=== PATIENT | male | born 1965 | race Caucasian/White ===

== ENCOUNTER 2019-07-24 16:34 | Inpatient (IN) | payer OTHER ==
[~2019-07-24] VITALS: Ht 180.3 cm; Wt 108.9 kg
[2019-07-24 17:00] VITALS: BP 114/52
--- NOTE | 2019-07-24 17:46 | NUR ---
PT BIB FOR RT SHOULDER/BACK PAIN X YEARS, REPORTS FREQUENT BLOODY NOISES, AND GENERALIZED WEAKNESS. PT AA0X4, REPORTS PT DISORIENTATED AT HOME. PT HAS 4+ PITTING EDEMA BLE, JUANDICE, DISTENDED ABD, RR LABORED AT 30 BREATHS PER MIN. PMH:BACK SURGERIES RX:DENIES Addendum: 07/24/19 at 1818 by TULIO VSS. IV STARTED AND LABS OBTAINED
[2019-07-24 18:13] LABS: BASOPHILS % (AUTO) 0.4 % (0.0-2.0); EOSINOPHILS % (AUTO) 0.6 % (0.0-4.0); LYMPHOCYTES # (AUTO) 1.3 K/uL (2.0-11.5); LYMPHOCYTES % (AUTO) 59.8 % (20.5-51.1); MEAN CORPUSCULAR HEMOGLOBIN 31 pg (27-31); MEAN CORPUSCULAR HGB CONC 35 g/dL (33-37); MEAN CORPUSCULAR VOLUME 89.4 fL (80-94); MONOCYTES # (AUTO) 0.1 K/uL (0.8-1.0); MONOCYTES % (AUTO) 4.4 % (1.7-9.3); NEUTROPHILS # (AUTO) 0.8 K/uL (1.8-7.7); NEUTROPHILS % (AUTO) 34.8 % (42.2-75.2); RED BLOOD CELL COUNT(AUTO) 0.95 MIL/uL (4.20-6.10); RED CELL DISTRIBUTION WIDTH 17.2 % (11.6-13.7); WHITE BLOOD COUNT (AUTO) 2.2 K/uL (4.8-10.8)
[2019-07-24 18:15] LABS: APPEARANCE,URINE CLEAR (CLEAR); BILIRUBIN,URINE NEGATIVE (NEGATIVE); BLOOD, URINE 1+ (NEGATIVE); COLOR,URINE YELLOW (YELLOW); LEUKOCYTE ESTERASE ,URINE NEGATIVE (NEGATIVE); NITRITE, URINE NEGATIVE (NEGATIVE); UGLUCOSE NEGATIVE (NEGATIVE)
[2019-07-24 18:21] LABS: HEMATOCRIT 8.5 % (36-52); PLATELET COUNT (AUTO) 3 K/uL (140-450)
[2019-07-24 18:31] LABS: RBC,URINE 0-5 /HPF (0-5); WBC,URINE 0-5 /HPF (0-5)
[2019-07-24 18:37] LABS: ANION GAP 19.5 (8-16); CARBON DIOXIDE 24.5 mmol/L (21-32); CREATININE 1.3 mg/dL (0.7-1.3)
[2019-07-24 18:42] LABS: PROTHROMBIN TIME 14.5 secs (10.8-13.4)
[2019-07-24 18:44] LABS: ALBUMIN 1.8 g/dL (3.4-5.0); TOTAL BILIRUBIN 1.2 mg/dL (0.0-1.0)
[2019-07-24] MEDS ORDERED: NACL 0.9% 1,000 ML IV ONE ×2 (19:05)
[2019-07-24] MEDS ORDERED: PIPERACILLIN/TAZOBACTAM 3.375 GM in DEXTROSE 5% 50 ML IV ONE (19:05)
--- NOTE | 2019-07-24 19:19 | NUR ---
RECEIVED REPORT FROM JOSE STACK.
--- NOTE | 2019-07-24 19:42 | NUR ---
STARTED INFUSING PRBCS. VERIFIED WITH JOSE NG. Addendum: 07/24/19 at 1954 by NED VITAL SIGNS: 98.9 F; 102 HR; 32 RR; 116/57.
--- NOTE | 2019-07-24 19:57 | NUR ---
V/S: 99.2 f; 98 HR; 33RR; 93/57 ( 65). PAIN IS A 10/10. PATIENT IS A/O X4. WILL CONTINUE TO MONITOR.
--- NOTE | 2019-07-24 20:12 | NUR ---
PATIENT IS A/OX4; PAIN IS AN 03/02. 99.5; 98% ON 2L N/C; 32 RR; 107/59 (75). WILL CONTINUE TO MONITOR.
--- NOTE | 2019-07-24 20:45 | NUR ---
EKG PERFORMED AT BEDSIDE
--- NOTE | 2019-07-24 20:54 | NUR ---
ERMD AT BEDSIDE.
[2019-07-24] MEDS ORDERED: fentaNYL 0.05 MG/ML VIAL IVP ONE ×3 (20:55→21:45)
--- NOTE | 2019-07-24 20:56 | NUR ---
Orquidea wilkins in [facility] - 07/24/19 at [address] Marks examining patient.
--- NOTE | 2019-07-24 20:58 | NUR ---
HR: 119; 113/60; 25 RR; 92% ON 2L. DAUGHTER AT BEDSIDE.
--- NOTE | 2019-07-24 21:12 | NUR ---
VITALS: 127/71; 99.3; 117 HR; 94% ON 2L; 33 RR: PAIN IS 7/10. WILL CONTINUE TO MONITOR.
--- NOTE | 2019-07-24 21:18 | NUR ---
Dr. Marks performing procedure at bedside.
--- NOTE | 2019-07-24 21:34 | NUR ---
ERMD AT BEDSIDE FOR PROCEDURE.
--- NOTE | 2019-07-24 21:38 | NUR ---
SYNCHRONIZE CARDIOVERTED TO NSR.
--- NOTE | 2019-07-24 21:40 | NUR ---
PATIENT RETURNED TO V-TACH AT 121. 100 MCG FENTANYL ORDERED AND PULLED.
--- NOTE | 2019-07-24 21:44 | NUR ---
RT, EMT, RN, AND MD AT BEDSIDE FOR PROCEDURE. WILL CONTINUE TO MONITOR.
--- NOTE | 2019-07-24 21:48 | NUR ---
PUSHED FENTANYL 100MCG PER MD ORDER.
--- NOTE | 2019-07-24 21:50 | NUR ---
ERMD AT BEDSIDE PROCEDURE.
--- NOTE | 2019-07-24 21:51 | NUR ---
SINUS TACHYCARDIA AT 106
--- NOTE | 2019-07-24 21:53 | NUR ---
PATIENT A/OX4; VITALS: 107/65; 100% ON 2L; 99HR; 27 RR; 5/10 PAIN AT THIS TIME. WILL CONTINUE TO MONITOR.
[2019-07-24] MEDS ORDERED: AMIODARONE 150 MG in DEXTROSE 5% 100 ML IV ONE (21:55)
[2019-07-24] MEDS ORDERED: AMIODARONE 150 MG/3 ML VIAL IV ONE (21:56)
--- NOTE | 2019-07-24 21:56 | NUR ---
NORMAL SINUS RHYTHM AT 96 BPM. WILL CONTINUE TO MONITOR.
[2019-07-24] MEDS: DEXT 5% /NACL 0.9% 1,000 ML IV SCH (21:58)
[2019-07-24] MEDS ORDERED: ONDANSETRON 4 MG/2 ML VIAL IVP PRN (22:00)
--- NOTE | 2019-07-24 22:00 | NUR ---
BLOOD TRANSFUSION FINISHED. NORMAL SALINE RUNNING. VITALS: 121/71; 96 HR;99% SPO2 ON NRB. WILL CONTINUE TO MONITOR. AT BEDSIDE.
--- NOTE | 2019-07-24 22:07 | NUR ---
PATIENT URINATED VIA URINAL 200ML OUTPUT.
[2019-07-24] MEDS: PANTOPRAZOLE 80 MG in NACL 0.9% 100 ML IV SCH (22:30)
[2019-07-24] MEDS ORDERED: OCTREOTIDE ACETATE 1.25 MG in NACL 0.9% 250 ML IV SCH (22:30)
--- NOTE | 2019-07-24 22:30 | NUR ---
Patient will be admitted to care of DR. BLISS. Admited to ICU. Will go to room BED 8. Belongings list completed. Report to JOSE VEE .
[2019-07-24] MEDS ORDERED: PIPERACILLIN/TAZOBACTAM 3.375 GM VIAL IV ONE (22:48)
[2019-07-24 23:02] LABS: MAGNESIUM 2.9 mg/dL (1.8-2.4); PHOSPHORUS 4.2 mg/dL (2.5-4.9); THYROID STIMULATING HORMONE 2.66 uIU/mL (0.34-3.74)
[2019-07-24] MEDS ORDERED: MULTIVITAMIN-12 10 ML, THIAMINE 100 MG, MAGNESIUM SULFATE 50% 2,000 MG, FOLIC ACID 5 MG... IV ONE ×5 (23:24)
[2019-07-24] MEDS ORDERED: MORPHINE SULFATE 2 MG/ML SYR IVP PRN (23:25)
[2019-07-24] MEDS ORDERED: OCTREOTIDE ACETATE 1000 MCG/5 ML VIAL ONE (23:40)
--- NOTE | 2019-07-24 23:45 | NUR ---
PT RECE[facility] PT IS AWAKE AND ALERT, ORIENTED X3. R AC IV SITE 20 GAUGE. INTACT, PATENT CURRENTLY INFUSING BLOOD. L AC IV SITE 20 GAUGE, INTACT, PATENT, GOOD BLOOD RETURN. SINUS RHYTHM ON MONITOR.LUNG SOUNDS CLEAR. PT IS MOANING AND ANXIOUS. ABDOMEN SOFT AND ROUND. BOWEL SOUNDS ACTIVE. SKIN IS INTACT, CAP REFILL LESS THAN 2 SECONDS. PT C/O BACK PAIN FROM HX OF BACK SURGERY. HOB 30 DEGREES. BED LOCKED IN LOWEST POSITION. WILL CONTINUE TO MONITOR.
[2019-07-25] VITALS (46 sets, daily range): BP systolic 120–154; BP diastolic 64–99
--- NOTE | 2019-07-25 | NUR ---
PT HAD A RUN OF VTACH. DR RAIN MADE AWARE. NO ORDERS GIVEN. WILL CONTINUE TO MONITOR.
[2019-07-25 00:17] LABS: BARBITURATE, URINE NEG. ng/ml (NEG <=200); BENZODIAZEPINE, URINE NEG. ng/mL (NEG <=200); CANNABINOID, URINE NEG. ng/mL (NEG <=50); COCAINE, URINE NEG. ng/mL (NEG <=300); OPIATE, URINE NEG. ng/mL (NEG <=2000); PHENCYCLIDINE SCREEN,URINE NEG. ng/mL (NEG <=25)
--- NOTE | 2019-07-25 00:20 | NUR ---
BLOOD CURRENTLY TRANSFUSING. NO REACTION NOTED. WILL CONTINUE TO MONITOR.
[2019-07-25] MEDS: LORazepam 2 MG/ML VIAL IVP PRN ×8 (00:36→22:26)
--- NOTE | 2019-07-25 00:40 | NUR ---
PT IS MOANING AND ANXIOUS. 2MG OF ATIVAN GIVEN. WILL CONTINUE TO MONITOR.
[2019-07-25] MEDS ORDERED: DEXTROSE 50% 50 ML SYR IVP PRN (00:50)
--- NOTE | 2019-07-25 01:35 | NUR ---
Spoke with Dr Jim regarding blood draw (CBC, amonia, alcohol, lactic) during blood transfusion; Dr Jim stated to draw the blood during transfusion. Let nicking machine operator know and to draw blood now
[2019-07-25 01:52] LABS: BASOPHILS % (AUTO) 0.5 % (0.0-2.0); EOSINOPHILS % (AUTO) 0.4 % (0.0-4.0); LYMPHOCYTES % (AUTO) 54.2 % (20.5-51.1); MEAN CORPUSCULAR HEMOGLOBIN 31 pg (27-31); MEAN CORPUSCULAR HGB CONC 35 g/dL (33-37); MEAN CORPUSCULAR VOLUME 88.8 fL (80-94); MONOCYTES # (AUTO) 0.1 K/uL (0.8-1.0); MONOCYTES % (AUTO) 3.6 % (1.7-9.3); NEUTROPHILS # (AUTO) 0.8 K/uL (1.8-7.7); NEUTROPHILS % (AUTO) 41.3 % (42.2-75.2)
[2019-07-25 02:09] LABS: WHITE BLOOD COUNT (AUTO) 1.9 K/uL (4.8-10.8)
[2019-07-25 02:12] LABS: HEMATOCRIT 12.4 % (36-52); HEMOGLOBIN 4.3 g/dL (12.0-18.0); PLATELET COUNT (AUTO) 2 K/uL (140-450)
--- NOTE | 2019-07-25 02:25 | NUR ---
PT HAS EYES CLOSED, RESTING IN BED. NO SOB OR DISTRESS NOTED. RESPIRATIONS EVEN AND UNLABORED. SAFETY PRECAUTIONS IN PLACE. WILL CONTINUE TO MONITOR.
--- NOTE | 2019-07-25 03:48 | NUR ---
PATIENT ANXIOUS, MOVING AROUND IN BED, SCREAMING, RR IN 30'S, GAVE ATIVAN
--- NOTE | 2019-07-25 04:30 | NUR ---
PT VOIDED, INCONTINENT. MEMO CARE CARE PROVIDED. WILL CONTINUE TO MONITOR.
[2019-07-25] MEDS: LORazepam 1 MG TAB PO SCH ×3 (05:00→21:00)
--- NOTE | 2019-07-25 06:10 | NUR ---
PATIENT LETHARGIC NOT ABLE TO SWALLOW MEDICATIONS
[2019-07-25 06:26] LABS: BASOPHILS % (AUTO) 0.5 % (0.0-2.0); EOSINOPHILS % (AUTO) 0.2 % (0.0-4.0); LYMPHOCYTES # (AUTO) 0.9 K/uL (2.0-11.5); LYMPHOCYTES % (AUTO) 51.1 % (20.5-51.1); MEAN CORPUSCULAR HEMOGLOBIN 31 pg (27-31); MEAN CORPUSCULAR HGB CONC 35 g/dL (33-37); MEAN CORPUSCULAR VOLUME 89.3 fL (80-94); MONOCYTES # (AUTO) 0.1 K/uL (0.8-1.0); MONOCYTES % (AUTO) 4.5 % (1.7-9.3); NEUTROPHILS # (AUTO) 0.8 K/uL (1.8-7.7); NEUTROPHILS % (AUTO) 43.7 % (42.2-75.2); PLATELET COUNT (AUTO) 26 K/uL (140-450); RED BLOOD CELL COUNT(AUTO) 1.43 MIL/uL (4.20-6.10); RED CELL DISTRIBUTION WIDTH 15.3 % (11.6-13.7)
[2019-07-25 06:41] LABS: ANION GAP 12.3 (8-16); CARBON DIOXIDE 28.1 mmol/L (21-32); MAGNESIUM 2.8 mg/dL (1.8-2.4); PHOSPHORUS 3.9 mg/dL (2.5-4.9); POTASSIUM 3.4 mmol/L (3.5-5.1)
[2019-07-25 07:03] LABS: HEMOGLOBIN 4.4 g/dL (12.0-18.0); WHITE BLOOD COUNT (AUTO) 1.8 K/uL (4.8-10.8)
[2019-07-25 07:04] LABS: HEMATOCRIT 12.7 % (36-52)
--- NOTE | 2019-07-25 07:05 | NUR ---
FRIEND THADDEUS WORLEY [phone] HERE FOR VISIT
--- NOTE | 2019-07-25 07:30 | NUR ---
REPORT GIVEN TO MICKEY RN FOR CONTINUTIY OF CARE. ORDERS REVIEWED AT BEDSIDE.
--- NOTE | 2019-07-25 07:31 | NUR ---
BEDSIDE REPORT RECEIVED FROM REGIONAL EXTENSION SERVICE SPECIALIST NURSE, PT LETHARGIC, RESPONDS TO PAIN ONLY, DOES NOT FOLLOW COMMANDS, RESP EVEN UNLABORED, SLIGHTLY TACHYPNEAC, RR 24-32, 2L NC O2, BS CLEAR BILAT, HR 80'S NSR ON MONITOR AT THIS TIME, IV 20G TO BILAT AC. PRBC INFUSING AT 100ML/HR AT THIS TIME, BOTH SITES WNL, ABD SOFT, NON DISTENDED, BS + IN ALL 4Q, PT INCONTINENT OF URINE, PERICARE DONE, PADS CHANGED, SLIGHT EDEMA NOTED ON BILAT LOWER EX. POC REVIEWED, ALL SAFETY MEASURES IN PLACE, WILL CONTINUE TO MONTIOR.
[2019-07-25] MEDS ORDERED: PIPER/TAZO 3.375GM/D5W PREMIX 50 ML IV SCH (08:00)
--- NOTE | 2019-07-25 08:15 | NUR ---
PT IRRITABLE, HR 117, ATIVAN GIVEN PER PRN ORDER.
[2019-07-25] MEDS: BLOOD GLUCOSE MONITORING 1 DEV DEV FS SCH ×4 (08:16→20:57)
--- NOTE | 2019-07-25 08:24 | NUR ---
PATIENT HAS BEEN SCREENED AND CATEGORIZED HIGH NUTRITION RISK. PATIENT WILL BE SEEN WITHIN 1-2 DAYS OF ADMISSION. 07/25/18-07/26/[address]
[2019-07-25] MEDS: PIPERACILLIN/TAZOBACTAM 3.375 GM in DEXTROSE 5% 50 ML IV SCH ×2 (08:29→16:23)
[2019-07-25] MEDS: PANTOPRAZOLE 80 MG in NACL 0.9% 100 ML IV SCH (08:47)
[2019-07-25] MEDS: THIAMINE 100 MG TAB PO SCH (09:00)
[2019-07-25] MEDS: FOLIC ACID 1 MG TAB PO SCH (09:00)
[2019-07-25] MEDS: MULTIVITAMIN 1 TAB PO SCH (09:00)
[2019-07-25] MEDS: DOCUSATE SODIUM 100 MG GELCAP PO SCH ×2 (09:00→21:00)
--- NOTE | 2019-07-25 09:05 | NUR ---
PT TO CT ON MONITOR WITH RN
--- NOTE | 2019-07-25 09:30 | NUR ---
PT RETURNED BACK TO ICU8. PT AGITATED, RESTLESS, WILL GIVE ATIVAN DOSE AGAIN, PT PLACED BACK ON MONITOR, VITALS STABLE, NSR AT THIS TIME.
[2019-07-25 09:31] LABS: CHOL/HDL RATIO 7.8 (1-4.5)
[2019-07-25] MEDS ORDERED: POTASSIUM CHLORIDE 40 MEQ, LIDOCAINE MPF 1% 25 MG in NACL 0.9% 250 ML IV SCH (10:00)
--- NOTE | 2019-07-25 10:05 | NUR ---
DR REED AND DAUGHTER ART AT BEDSIDE, PLAN OF CARE DISCUSSED, DECISION MAKER IS RAMU [phone], DAUGHTER ART'S NUMBER IS [phone], STATES SHE IS EASIER TO BE REACHED,
--- NOTE | 2019-07-25 10:20 | NUR ---
16F CHAN CATH PLACED, DARK YELLOW URINE RETURNED, PT DINORA WELL, PERICARE, BED BATH GIVEN, LINEN CHANGED.
--- NOTE | 2019-07-25 10:37 | NUR ---
V TACH LASTING APPROX 1.5MIN, RESOLVED SPONTANEOUSLY, BP 144/85, HR 88 NOW, DR REED CALLED AND MADE AWARE.
[2019-07-25] MEDS ORDERED: PROBIOTIC SCREEN 1 EA MISC MC PRN (11:05)
--- NOTE | 2019-07-25 11:10 | NUR ---
4TH UNIT OF PRBC STARTED AT THIS TIME.
--- NOTE | 2019-07-25 11:49 | NUR ---
Special Events Driver Note: Basic Screen: Yes Name: RAMU NEWSOME Home Relationship: Prior ADL Independent Current Home Health Name/Tel: N/A Current DME/02 Name/Tel: [facility] Current Hospice Name/Tel: N/A Current Dialysis Name/Tel: N/A Healthcare Decision Maker: Patient Advance Directive No Physician Orders for Life Sustaining Treatment Form No Patient/Family Have Educational Needs No Information Taught: Advance Directive Person Taught: Spouse Teaching Tools: Verbal Factors Affecting Learning: None Participation Level: Refused Evaluation: Verbalizes Understanding Needs Additional Education: No Discipline: Case Mgt/Social Svcs Tentative Discharge Plan/Destination: No Needs Identified Will require assistance post discharge: No Referred to Formal Waiter/Waitress: No Tentative Discharge Plan Summary: Patient is a 53-year-old male admitted for GI bleed and severe anemia. Patient has PMHX of chronic back pain, liver cirrhosism, ETOH abuse, and poly substance abuse. Patient was admitted from home. SW contacted patient's Ramu Newsome [phone] to verify demographics. Per Ramu, patient is independent with ADLs at baseline. Ramu stated that patient has struggled with substance use but refused any substance abuse resources. Ramu reported that patient has refused to see medical doctors but would be open to low-cost clinic resources. Ramu stated that patient's tentative discharge plan would be to return home. Ramu stated that she would like to meet with SW when she comes in. SW will follow up as needed. Signature: TATYANA Crandall Date: Jul 25, 2019 Time: 11:48
--- NOTE | 2019-07-25 12:16 | NUR ---
V TACH AT 115-117, LASTING 1.2MIN PT SELF CONVERTS BACK TO SR AT 80'S, DR JACK CALLED TO NOTIFY, AWAITING CLOTH FINISHING RANGE OPERATOR DR SHIN.
[2019-07-25] MEDS ORDERED: fentaNYL 0.05 MG/ML VIAL ONE (12:21)
[2019-07-25] MEDS ORDERED: MIDAZOLAM 2 MG/2 ML VIAL ONE (12:21)
--- NOTE | 2019-07-25 12:35 | NUR ---
DR CHANDLER AT BEDSIDE, SPEAKING WITH DAUGHTER ART REGARDING EGD. PT IN V TACH AGAIN RATE 117 LASTING 4-5MIN, DR REED CALLED SHERIFF SERGEANT PHONE, EGD ON HOLD FOR NOW, AMIODARONE TO BE ORDERED BY DR REED.
[2019-07-25] MEDS ORDERED: AMIODARONE 150 MG in DEXTROSE 5% 100 ML IV SCH (13:00)
--- NOTE | 2019-07-25 13:13 | NUR ---
AMIO LOADING DOSE 150MG STARTED
--- NOTE | 2019-07-25 13:50 | NUR ---
DR SHIN AT BEDSIDE.
--- NOTE | 2019-07-25 14:00 | NUR ---
AMIO DRIP STARTED AT 1MG/MIN.
[2019-07-25] MEDS: AMIODARONE 450 MG in DEXTROSE 5% 250 ML IV SCH ×2 (14:06→22:36)
--- NOTE | 2019-07-25 14:15 | NUR ---
DR CHANDLER AND GI TEAM AT BEDSIDE FOR EGD.
--- NOTE | 2019-07-25 14:35 | NUR ---
EGD DONE, NO ACTIVE BLEED PER DR CHANDLER.
--- NOTE | 2019-07-25 14:50 | NUR ---
PT RESTING WITH EYES CLOSED, AROUSABLE TO PAIN ONLY, VITALS STABLE ON MONTIOR, HR 82 SINUS RHYTHM, RR 23, O2 SAT 100, 143/91.
[2019-07-25] MEDS ORDERED: MIDAZOLAM 2 MG/2 ML VIAL IVP ONE (15:05)
[2019-07-25] MEDS ORDERED: fentaNYL 0.05 MG/ML VIAL IVP ONE (15:20)
--- NOTE | 2019-07-25 15:55 | NUR ---
US AT BEDSIDE FOR ABD US
--- NOTE | 2019-07-25 16:10 | NUR ---
FLU SWAB DONE BY JOSE MAYEN.
[2019-07-25 16:16] LABS: BASOPHILS % (AUTO) 0.8 % (0.0-2.0); EOSINOPHILS % (AUTO) 0.8 % (0.0-4.0); LYMPHOCYTES # (AUTO) 0.5 K/uL (2.0-11.5); LYMPHOCYTES % (AUTO) 42.1 % (20.5-51.1); MEAN CORPUSCULAR HEMOGLOBIN 31 pg (27-31); MEAN CORPUSCULAR HGB CONC 35 g/dL (33-37); MEAN CORPUSCULAR VOLUME 88.9 fL (80-94); MONOCYTES # (AUTO) 0.1 K/uL (0.8-1.0); MONOCYTES % (AUTO) 4.7 % (1.7-9.3); NEUTROPHILS # (AUTO) 0.7 K/uL (1.8-7.7); NEUTROPHILS % (AUTO) 51.6 % (42.2-75.2); PLATELET COUNT (AUTO) 21 K/uL (140-450); RED BLOOD CELL COUNT(AUTO) 1.98 MIL/uL (4.20-6.10); RED CELL DISTRIBUTION WIDTH 14.8 % (11.6-13.7)
--- NOTE | 2019-07-25 16:31 | NUR ---
DR REED AT BEDSIDE SPEAKING WITH RAMU GIRON AND CONDITION DISCUSSED.
[2019-07-25 16:37] LABS: HEMATOCRIT 17.6 % (36-52); HEMOGLOBIN 6.1 g/dL (12.0-18.0); WHITE BLOOD COUNT (AUTO) 1.3 K/uL (4.8-10.8)
[2019-07-25] MEDS: DEXT 5% /NACL 0.9% 1,000 ML IV SCH (17:58)
--- NOTE | 2019-07-25 18:10 | NUR ---
PT WITH INTERMITTENT MOANING, AND RESTLESSNESS, FLACC 5, MORPHINE GIVEN PER ORDER FOR PAIN.
--- NOTE | 2019-07-25 18:15 | NUR ---
FFP STARTED PER ORDER.
--- NOTE | 2019-07-25 19:20 | NUR ---
BEDSIDE REPORT GIVEN TO NIGHT HSIFT NURSE, PT IN STABLE CONDTION
--- NOTE | 2019-07-25 19:30 | NUR ---
[facility] A/O X0. PERRL. NON-VERBAL. RESPONSIVE TO PAINFUL STIMULI ONLY. FLACC 0. RESPIRATIONS EVEN AND UNLABORED. O2 RUNNING @ 2LPM VIA NC. SPO2 @ 99% ON MONITOR. +S1 AND S2, NSR ON MONITOR. BOWEL SOUNDS ACTIVE X4. ABDOMEN SOFT, NON-DISTENDED AND NON-TENDER. 20G PERIPHERAL IV TO LT AC INFUSING FFP @ THIS TIME. 20G TO RT AC, PATENT/NON-INFILTRATED. SKIN WARM, DRY AND INTACT. +1 PITTING EDEMA TO BI LE. PEDAL PULSES PALPABLE. BED LOW AND LOCKED. SIDE RAILS UP X2. CALL LIGHT WITHIN REACH. WILL CONTINUE TO MONITOR. Addendum: 07/25/19 at 2200 by Lisa Severino RN CONTINUES ON AMIODARONE 1MG/HR TO RT AC Addendum: 07/25/19 at 2241 by Lisa Severino RN CONTINUES ON AMIODARONE 1MG/MIN TO RT AC
--- NOTE | 2019-07-25 21:15 | NUR ---
1 UNIT PRBC STARTED @ THIS TIME PER ORDERS. V/S FOLLOWS: 98.1, 80, 28, 135/78, FLACC 0. SAFETY PRECAUTIONS REMAIN IN PLACE. CALL LIGHT WITHIN REACH. WILL CONTINUE TO MONITOR.
--- NOTE | 2019-07-25 22:54 | NUR ---
PT WITH INCREASING AGITATION, YELLING, AND THRASHING IN BED. VSS. MADE AWARE. NEW ORDERS TO INCREASE MORPHINE FREQUENCY TO Q4 HOURS.
[2019-07-25] MEDS: MORPHINE SULFATE 2 MG/ML SYR IVP PRN (23:44)
[2019-07-26] VITALS (37 sets, daily range): BP systolic 128–166; BP diastolic 68–94
--- NOTE | 2019-07-26 00:35 | NUR ---
DR RAIN AT BEDSIDE AT THIS TIME.
[2019-07-26] MEDS: PIPERACILLIN/TAZOBACTAM 3.375 GM in DEXTROSE 5% 50 ML IV SCH ×4 (00:47→23:07)
[2019-07-26] MEDS: LORazepam 2 MG/ML VIAL IVP PRN ×6 (01:09→23:52)
--- NOTE | 2019-07-26 02:00 | NUR ---
PLACED CALL TO DR RAIN REGARDING ORDER FOR CBC POST BLOOD TRANSFUSION. AWARE.
--- NOTE | 2019-07-26 02:35 | NUR ---
ADMINISTERED ATIVAN PER MD ORDERS DUE TO CONTINUOUS MOANING AND THRASHING IN BED. VSS. REPOSITIONED. MEMO-CARE PROVIDED. CALL LIGHT LEFT WITHIN REACH. WILL CONTINUE TO MONITOR FOR CHANGES.
--- NOTE | 2019-07-26 04:31 | NUR ---
LAB AT BEDSIDE AT THIS TIME. VSS. SAFETY PRECAUTIONS IN PLACE. CALL LIGHT LEFT WITHIN REACH. WILL CONTINUE TO MONITOR FOR CHANGES.
[2019-07-26] MEDS: MORPHINE SULFATE 2 MG/ML SYR IVP PRN ×4 (05:00→21:49)
[2019-07-26] MEDS: LORazepam 1 MG TAB PO SCH (05:00)
[2019-07-26 05:30] LABS: BASOPHILS % (AUTO) 0.3 % (0.0-2.0); EOSINOPHILS % (AUTO) 0.5 % (0.0-4.0); LYMPHOCYTES # (AUTO) 0.7 K/uL (2.0-11.5); MEAN CORPUSCULAR HEMOGLOBIN 31 pg (27-31); MEAN CORPUSCULAR HGB CONC 34 g/dL (33-37); MEAN CORPUSCULAR VOLUME 90.3 fL (80-94); NEUTROPHILS # (AUTO) 0.6 K/uL (1.8-7.7); NEUTROPHILS % (AUTO) 47.2 % (42.2-75.2); RED BLOOD CELL COUNT(AUTO) 2.19 MIL/uL (4.20-6.10)
[2019-07-26 05:35] LABS: WHITE BLOOD COUNT (AUTO) 1.4 K/uL (4.8-10.8)
[2019-07-26 05:45] LABS: HEMATOCRIT 19.8 % (36-52); HEMOGLOBIN 6.8 g/dL (12.0-18.0); PLATELET COUNT (AUTO) 16 K/uL (140-450)
--- NOTE | 2019-07-26 05:54 | NUR ---
DR RAIN NOTIFIED OF CRITICAL LAB RESULTS FROM THIS AM. NO NEW ORDERS AT THIS TIME.
[2019-07-26 06:08] LABS: CARBON DIOXIDE 25.4 mmol/L (21-32); CREATININE 0.8 mg/dL (0.7-1.3); POTASSIUM 4.4 mmol/L (3.5-5.1)
[2019-07-26 06:10] LABS: HEPATITIS A ANTIBODY IGM Negative (Negative); HEPATITIS B CORE AB TOTAL Negative (Negative); HEPATITIS B SURFACE ANTIBODY Non Reactive (.); HEPATITIS B SURFACE ANTIGEN Negative (Negative)
[2019-07-26 06:16] LABS: MAGNESIUM 2.6 mg/dL (1.8-2.4); PHOSPHORUS 3.7 mg/dL (2.5-4.9)
[2019-07-26] MEDS: BLOOD GLUCOSE MONITORING 1 DEV DEV FS SCH ×4 (06:32→20:36)
--- NOTE | 2019-07-26 07:06 | NUR ---
RECEIVED BEDSIDE REPORT FROM RAFFY STABBER RN, FOR CONTINUITY OF CARE. PATIENT IS CONFUSED, UNABLE TO MAKE NEEDS KNOWN OR FOLLOW COMMANDS. PATIENT SKIN IS WARM, DRY, AFEBRILE, INTACT. HE HAS PERIPHERAL IV SITE TO RAC AND LAC 20 GAUGE, ASYMPTOMATIC AND PATENT. PATIENT IS ON ROOM AIR, SR ON MONITOR, FLACC 0. PATIENT HAS CHAN CATHETER IN PLACE. NO SIGNS OF DISTRESS AT THIS TIME. WILL CONTINUE TO MONITOR
--- NOTE | 2019-07-26 08:15 | NUR ---
DR. BLISS AND RESIDENT PHYSICIANS AT BEDSIDE, UPDATED ON PATIENT'S CONDITION. WILL FOLLOW UP ON ANY ORDERS
--- NOTE | 2019-07-26 08:25 | NUR ---
PATIENT STARTED ON BLOOD TRANSFUSION, VS STABLE, WILL CONTINUE TO MONITOR
[2019-07-26] MEDS: PANTOPRAZOLE 40 MG INJ VIAL IVP SCH (08:49)
--- NOTE | 2019-07-26 08:55 | NUR ---
PATIENT'S AT BEDSIDE, UPDATED ON PATIENT'S CONDITION
[2019-07-26] MEDS: FOLIC ACID 1 MG TAB PO SCH (09:00)
[2019-07-26] MEDS: MULTIVITAMIN 1 TAB PO SCH (09:00)
[2019-07-26] MEDS: LACTOBACILLUS RHAMNOSUS GG 1 EACH CAP PO SCH (09:00)
[2019-07-26] MEDS: DOCUSATE SODIUM 100 MG GELCAP PO SCH ×2 (09:00→21:00)
[2019-07-26] MEDS: THIAMINE 100 MG TAB PO SCH (09:00)
[2019-07-26 09:06] LABS: IMMUNOGLOBULIN A 236 mg/dL (90-386); IMMUNOGLOBULIN M 95 mg/dL (20-172)
--- NOTE | 2019-07-26 11:06 | NUR ---
DISCHARGE PLANNIN53 Y/O MALE PATIENT FROM HOME, WHO CAME IN DUE TO RIGHT SIDE BACK PAIN. PAST MEDICAL HISTORY OF CHRONIC BACK PAIN, LIVER CIRRHOSIS, ETOH ABUSE AND POLYSUBSTANCE ABUSE. INITIAL DIAGNOSIS OF GI BLEED, SEVERE ANEMIA, SVT, LIVER FAILURE AND PNA. CURRENT LABS INCLUDE WBC 1.4, H/H 6.8/19.8, PLT 16 AND TROP 0.392. UDS POSITIVE FOR AMPHETAMINES. 6 UNITS PRBC TRANSFUSED. 2 UNITS FFP AND 1 UNIT PLT ORDERED. ON AMIODARONE DRIP. ON IV PROTONIX AND ZOSYN. GARO CONSULT WITH DR RM FOR PANCYTOPENIA. CRITICAL CONSULT WITH DR MACDONALD FOR GI BLEED, SEVERE ANEMIA, SVT, LIVER FAILURE AND PNA. CARDIO CONSULT WITH DR. SHIN FOR SVT. DC PLANNING PENDING ON PATIENT'S RESPONSE TO TREATMENT. Addendum: 07/27/19 at 1555 by Jasmina Presley DC PLANNING: SEEN AND EVALUATED BY PULMO DR MACDONALD SUGGESTED TO CONTINUE MONITOR ICU STATUS , HIGH RISK FOR ASPIRATION PNA, HOB ELEVATED ADMINISTERED ATIVAN FOR METH WITHDRAWAL ,MONITOR H/H FOR BLEEDING H/H 8.4/24.7 CONTINUE IVF AND IV ZOSYN FOR ASP PNEUMONIA. CT HEAD NEGATIVE FOR BLEEDING . ON CALL PHARMACY TECHNICIAN DR SHIN CHANGED PO AMIODARONE 400MG BID AND CONTINUE BANANA BAG . 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 DC PLAN TO TRANSFER TO [facility] WHEN STABLE. CM TO FOLLOW Addendum: 08/02/19 at 0851 by Hoa Faust CM STILL IN ICU, ON OXYMIZER AT 6LPM. RIGHT NARES NGT WITH GLUCERNA 1.[address] NEPHRO, ID, GARO, GI, PULMO AND CARDIO CONSULTS IN PLACE. CURRENT LABS INCLUDE WBC 1.7, H/H 6.9/21.0, PLT COUNT 18, NA/K 153/4.0, BUN/CREA 16/0.8. SPUTUM PRELIM RESULTS SHOWED FEW GRAM + COCCI. NO GROWTH ON URINE AND BLOOD CULTURES. OCCULT BLOOD POSITIVE. ON VANCO AND MERREM. DC PLAN PENDING ON PATIENT'S RESPONSE TO TREATMENT. Addendum: 08/02/19 at 1106 by Hoa Faust CM RECEIVED A CALL FROM GAGANDEEP GARCIA OF [facility], REQUESTING UPDATE ON PATIENT'S H/H AND PLT. PROVIDED HER WITH THE NUMBERS. SHE STATED PLT SHOULD BE AT LEAST 50 TO DO THE PROCEDURE. I TOLD HER I WILL DISCUSS THIS WITH THE RESIDENTS. PER DR. REED THEY WILL ORDER PLT DAY PRIOR ONCE WE HAVE A SCHEDULE. CONTACTED WANAM[place]O AND MADE HER AWARE. SHE STATED SHE WILL CONTACT THE [facility] RADIOLOGIST AND WILL GIVE ME A CALL BACK. Addendum: 08/02/19 at 1218 by Hoa Faust CM RECEIVED A CALL FROM [facility], SHE STATED SHE SPOKE TO DR. MARCELLE THOMPSON AND THEY SCHEDULED THE PATIENT FOR MONDAY AT 1100 BUT PATIENT NEEDS TO CHECK IN AT 1000. SHE ALSO REQUESTED FOR LABS AND H&P TO BE SENT. PROVIDED ME WITH FAX NUMBER [phone]. CLINICALS SENT. Addendum: 08/02/19 at 1536 by Hoa Faust CM RECEIVED A CALL FROM [facility], SHE CONFIRMED THAT SHE RECEIVED THE PACKET. CONFIRMED THE SCHEDULE FOR MONDAY AT 1100, DEPENDING ON THE PATIENT'S PLT COUNT. CHARGE NURSE MADE AWARE. Addendum: 08/04/19 at 1015 by Hoa Faust CM STILL IN ICU, ON NASAL CANNULA AT 2LPM, SAT 94%. ON ISO FOR MRSA OF SPUTUM. CURRENT LABS INCLUDE WBC 2.0, H/H 7.4/22.7, PLT 37, NA/K 143/3.4. ON VANCOMYCIN AND MERREM. NEPHRO, ID, GARO, GI, PULMO AND CARDIO CONSULTS IN PLACE. FOR BONE MARROW BIOPSY Mon AT 1100 [facility], PENDING PLATELET COUNT. D/C PLAN PENDING ON PATIENT'S RESPONSE TO TREATMENT. Addendum: 08/05/19 at 0955 by Hoa Faust CM CONTACTED [facility] D[employer]ST[facility] AT [phone] REGARDING PATIENT'S PLT COUNT OF 90. SHE PROVIDED ME THE NUMBER [phone] FOR REPORT. CHARGE NURSE FAHEEM MADE AWARE. RECEIVED A CALL FROM BUSINESS OFFICE SAYING THAT THE OP PROCEDURE WILL NOT BE COVERED DUE TO PATIENT IS ONLY MEDICARE PART A. SHE STATED SHE WILL GIVE ME A CALL BACK TO CONFIRM. [employer] DATA TYPIST CONFIRMED, HOWEVER AN APPLICATION TO [facility] FOR HOSP PRESUMPTIVE IS STILL PENDING. CONTACTED BONY BOYKIN/BOBBI BRIDGE PAINTER AND INFORMED HER OF THE SITUATION. SHE STATED SHE WILL CONTACT BUSINESS OFFICE AND WILL GIVE ME A CALL. RECEIVED A CALL FROM [facility], STATING TO HOLD OFF ON THE PROCEDURE UNTIL EVERYTHING IS CLEARED OUT. PRIMARY RN MADE AWARE. A WILL CALL TRANSPORT SET UP WITH [facility]Y [facility]. RECEIVED A CALL FROM [facility], STATING THAT WE ARE GOOD TO GO. PRIMARY RN MADE AWARE. CONTACTED [facility], PATIENT IS READY NOW. SHE STATED THAT THIS IS NOT A COVERED BENEFIT AND THEY WILL NEED A VOUCHER FOR THIS. VOUCHER SIGNED BY DIANDRA FAXED TO [facility]. PER SUSANA BE [facility], PICK WILL BE IN AN HOUR. PRIMARY RN AND GAGANDEEP AT [facility] MADE AWARE. DR. PARKS MADE AWARE. Addendum: 08/05/19 at 1107 by Hoa Faust CM PER SEDA BE [facility], AMBULANCE IS IN THE BUILDING ALREADY. RECEIVED A CALL FROM CHARGE NURSE MAYEN, THAT TONY IS AT THE UNIT. GAGANDEEP OF [facility] MADE AWARE. Addendum: 08/05/19 at 1455 by Hoa Faust CM CONTACTED GAGANDEEP OF [facility] DEPT TO FOLLOW UP ON THE PATIENT. SHE STATED THE PROCEDURE DONE ALREADY AND PATIENT IS IN OP DEPT. RECEIVED A CALL FROM BONY Ferraro CM/BOBBI BRIDGE PAINTER THAT PATIENT IS READY TO TRANSFER BACK AND TO CALL OP DEPT AT [phone]. CONTACTED THE PROVIDED NUMBER, NO ANSWER. RECEIVED A CALL FROM CHARGE NURSE MAYEN STATING THAT SHE RECEIVED A CALL FROM BLANCA OF [facility] STATING THAT TRANSPORT HAVE BEEN ARRANGED ALREADY. CONTACTED BLANCA TO CONFIRM AT [phone], SHE STATED NO TRANSPORTATION HAVE BEEN ARRANGED. CONTACTED TONY, MANA[facility] [employer] WILL BE IN 60 MINS. BLANCA AT [facility] MADE AWARE, INFORMED HER THAT THE EARLIEST ETA THEY HAVE. SHE STATED THAT THE PATIENT IS VERY EAGER TO GO BACK NOW. CHARGE NURSE MAYEN MADE AWARE. Addendum: 08/05/19 at 1649 by Hoa Faust CM RECEIVED A CALL FROM TONY LAI, STATING THAT THE AMBULANCE HAVE BEEN WAITING AT [facility] FOR AN HOUR AND SHE HAS TO RE-ROUTE THEM AND WILL DO A WILL CALL. CONATCTED BLANCA OF OP, NO ANSWER. PER BONY BOYKIN/SW BRIDGE PAINTER PATIENT IS NOT IN OP ANYMORE, SHE STATED SHE WILL FIND OUT. PER CHARGE NURSE FAHEEM, PATIENT IS NOT IN ICU YET. RECEIVED A CALL FROM BONY CM/SW BRIDGE PAINTER, STATING THAT THE PATIENT IS BACK IN OUT PATIENT DUE TO DURING TRANSFER PATIENT HAD SOME BLEEDING FROM THE SITE AND NEEDED THE DRESSING CHANGED. PER BLANCA OF OP, PATIENT IS READY NOW. PER SUSANA OF [facility], ETA WILL BE 60-90 MINS. BLANCA AT [facility] AND CHARGE NURSE FAHEEM MADE AWARE.
--- NOTE | 2019-07-26 11:15 | NUR ---
BLOOD TRANSFUSION COMPLETED, VS STABLE, NO SIGNS OF REACTION NOTED.
[2019-07-26] MEDS: ACETAMINOPHEN 325 MG TAB PO PRN (11:21)
--- NOTE | 2019-07-26 11:45 | NUR ---
PATIENT STARTED ON FRESH FROZEN PLASMA, VS STABLE, NO SIGNS OF DISTRESS AT THIS TIME.
[2019-07-26 12:21] LABS: FERRITIN 6472 ng/mL (30 - 400); TRANSFERRIN 124 mg/dL (200 - 370)
--- NOTE | 2019-07-26 12:59 | NUR ---
DR. REED IN TO CHECK UP ON PATIENT, UPDATED ON PATIENT'S CONDITIONS, AWARE THAT BLOOD BANK DOES NOT HAVE PLATELETS YET, WILL FOLLOW UP ON ANY ORDERS.
[2019-07-26] MEDS: DEXT 5% /NACL 0.9% 1,000 ML IV SCH (13:01)
--- NOTE | 2019-07-26 14:07 | NUR ---
SPOKE WITH PATIENT'S DAUGHTER, STATES THAT PATIENT'S SISTERS WILL BE COMING TO VISIT, HOWEVER PATIENT'S DAUGHTER AND DO NOT WANT TOO MUCH INFO TO BE GIVEN TO THEM.
--- NOTE | 2019-07-26 14:15 | NUR ---
TRANSFUSION OF FRESH FROZEN PLASMA IS COMPLETE, PATIENT TOLERATED WELL. VS STABLE, NO SIGNS OF REACTION OR DISTRESS NOTED.
--- NOTE | 2019-07-26 14:25 | NUR ---
PATIENT STARTED ON TRANSFUSION OF PLATELETS, NO SIGNS OF DISTRESS AT THIS TIME, VS STABLE
--- NOTE | 2019-07-26 14:44 | NUR ---
07/26/19 RD INITIAL ASSESSMENT COMPLETED PLEASE REFER TO NUTRITION ASSESSMENT UNDER CARE ACTIVITY FOR ESTIMATED NUTRITIONAL NEEDS. 1. CONTINUE NPO MEDICALLY APPROPRIATE 2. WHEN PATIENT IS MEDICALLY STABLE CONSIDER ADVANCING DIET TO HEPATIC SOFT. 3. NUTRITION EDUCATION WILL BE GIVEN ON CIRRHOSIS DURING NEXT VISIT 4. RD TO FOLLOW-UP 2-3 DAYS, HIGH RISK TANNA CHRISTENSEN RD
--- NOTE | 2019-07-26 15:22 | NUR ---
DR. ALFONSO IS HERE TO SEE AND EXAMINE PATIENT, UPDATED PATIENT'S DAUGHTER AT BEDSIDE REGARDING PLAN FOR PATIENT.
--- NOTE | 2019-07-26 16:15 | NUR ---
TRANSFUSION OF PLATELETS IS COMPLETE, PATIENT TOLERATED WELL, NO SIGNS OF REACTIONS OR DISTRESS NOTED.
--- NOTE | 2019-07-26 16:26 | NUR ---
SPOKE WITH DR. REED REGARDING CT SCAN OF HEAD, PER BOAT CARPENTER MECHANIC PATIENT NEEDS TO BE KEPT STILL DURING SCAN HOWEVER PATIENT IS STILL NOT FOLLOWING COMMANDS AND YELLING. PER DR. REED, SHE WILL PUT IN ORDER FOR IDAL
[2019-07-26] MEDS ORDERED: HALOPERIDOL IM 5 MG/ML VIAL IM SCH (16:40)
--- NOTE | 2019-07-26 19:30 | NUR ---
RECEIVED PT FROM [facility]. A/O X0. PERRL. UNABLE TO FOLLOW SIMPLE COMMANDS. RESPONSIVE TO PAINFUL STIMULI ONLY. CONTINUES TO MOAN AND YELL AND THRASH BACK AND FORTH. RESPIRATIONS EVEN AND UNLABORED. O2 RUNNING @ 2LPM VIA NC. SPO2 @ 99% ON MONITOR. +S1 AND S2, NSR ON MONITOR. CAP REFILL WITHIN 3 SEC. TURGOR ELASTIC. BOWEL SOUNDS ACTIVE X4. ABDOMEN SOFT, NON-DISTENDED AND NON-TENDER. INDWELLING CATHETER PATENT AND DRAINING CLEAR, YELLOW, URINE TO GRAVITY. 20G PERIPHERAL IV TO LT AC INFUSING D5 NS @ 50 ML/HR. 20G TO RT AC, PATENT/NON-INFILTRATED. SKIN WARM, DRY AND INTACT. PEDAL PULSES PALPABLE. BED LOW AND LOCKED. SIDE RAILS UP X2. CALL LIGHT WITHIN REACH. WILL CONTINUE TO MONITOR.
--- NOTE | 2019-07-26 19:35 | NUR ---
ATIVAN 2MG IV ADMINISTERED ORDERED WITHOUT INCIDENT. PT CALM AND LYING IN BED. VSS. SAFETY PRECAUTIONS IN PLACE. CALL LIGHT LEFT WITHIN REACH. WILL CONTINUE TO MONITOR FOR CHANGES.
[2019-07-26] MEDS: AMIODARONE 200 MG TAB PO SCH (21:00)
[2019-07-26 21:31] LABS: BASOPHILS % (AUTO) 0.6 % (0.0-2.0); EOSINOPHILS % (AUTO) 0.3 % (0.0-4.0); HEMATOCRIT 23.6 % (36-52); LYMPHOCYTES # (AUTO) 0.8 K/uL (2.0-11.5); MEAN CORPUSCULAR HEMOGLOBIN 31 pg (27-31); MEAN CORPUSCULAR HGB CONC 34 g/dL (33-37); MEAN CORPUSCULAR VOLUME 90.9 fL (80-94); MONOCYTES # (AUTO) 0.1 K/uL (0.8-1.0); MONOCYTES % (AUTO) 3.4 % (1.7-9.3); NEUTROPHILS # (AUTO) 0.7 K/uL (1.8-7.7); NEUTROPHILS % (AUTO) 44.7 % (42.2-75.2); PLATELET COUNT (AUTO) 32 K/uL (140-450); RED CELL DISTRIBUTION WIDTH 15.3 % (11.6-13.7)
[2019-07-26 21:33] LABS: WHITE BLOOD COUNT (AUTO) 1.6 K/uL (4.8-10.8)
--- NOTE | 2019-07-26 21:50 | NUR ---
PT WITH INCREASED AGITATION, MOANING AND THRASHING IN BED. MORPHINE ADMINISTERED ORDERED AT THIS TIME. VSS. NO ASE NOTED. SAFETY PRECAUTIONS IN PLACE. BED LOW AND LOCKED. SIDE RAILS UP X3. CALL LIGHT LEFT WITHIN REACH. WILL CONTINUE TO MONITOR FOR CHANGES.
--- NOTE | 2019-07-26 22:40 | NUR ---
DR. Petrona BRAND IN AND EXAMINED PATIENT; WITH NEW ORDER TO GIVE AMIODARONE 150 MG IV PUSH SINCE PATIENT UNABLE TO SWALLOW ORAL DOSE; BUT WHEN TRYING TO PUT THE ORDER IN THE COMPUTER, [employer] DIDN'T ALLOW ME AND EVEN THE OUTSIDE PHARMACY CAN'T DO IT TOO; SO NOTIFIED DR. Petrona BRAND AND HE ORDERED JUST TO DISCONTINUE IT OR IF CAN INSERT AN NGT THEN GIVE THE TAB THRU THE NGT; INFORMED ALSO DR. RAIN ( RESIDENT PUBLIC SAFETY DIRECTOR) REGARDING THIS ORDER. BUT IT WAS FOUND OUT THAT WE CAN'T INSERT AN NGT BECAUSE PATIENT'S PLATELET IS LOW ONLY 27.
--- NOTE | 2019-07-26 23:57 | NUR ---
PT WITH INCREASED AGITATION, MOANING AND THRASHING IN BED, AND ATTEMPTING TO GET OUT OF BED. ATIVAN ADMINISTERED ORDERED AT THIS TIME. VSS. NO ASE NOTED. SAFETY PRECAUTIONS IN PLACE. BED LOW AND LOCKED. SIDE RAILS UP X3. CALL LIGHT LEFT WITHIN REACH. WILL CONTINUE TO MONITOR.
[2019-07-27] VITALS (15 sets, daily range): BP systolic 124–151; BP diastolic 66–95
[2019-07-27] MEDS: LORazepam 2 MG/ML VIAL IVP PRN ×7 (02:11→18:33)
--- NOTE | 2019-07-27 02:28 | NUR ---
PT YELLING AND ATTEMPTING TO GET UP FROM BED. MEDICATED WITH PRN ATIVAN ORDERED. NO ASE @ THIS TIME. SAFETY PRECAUTIONS REMAIN IN PLACE. BED LOW AND LOCKED. CALL LIGHT LEFT WITHIN REACH.
--- NOTE | 2019-07-27 05:20 | NUR ---
INCREASED AGITATION NOTED, MOANING AND THRASHING IN BED. ATIVAN ADMINISTERED ORDERED AT THIS TIME. VSS. NO ASE NOTED. SAFETY PRECAUTIONS IN PLACE. BED LOW AND LOCKED. SIDE RAILS UP X3. CALL LIGHT LEFT WITHIN REACH. WILL CONTINUE TO MONITOR FOR CHANGES.
[2019-07-27] MEDS: BLOOD GLUCOSE MONITORING 1 DEV DEV FS SCH ×4 (06:30→21:38)
[2019-07-27] MEDS: MORPHINE SULFATE 2 MG/ML SYR IVP PRN ×4 (06:32→21:22)
--- NOTE | 2019-07-27 06:40 | NUR ---
PT CONTINUES TO YELL AND EXCESSIVELY MOVE IN BED. FLACC 8. MORPHINE ADMINISTERED ORDERED WITH GOOD EFFECT. NO ASE NOTED. SAFETY PRECAUTIONS IN PLACE. BED LOW AND LOCKED. SIDE RAILS X3 UP. CALL LIGHT LEFT WITHIN REACH. WILL CONTINUE TO MONITOR FOR CHANGES.
[2019-07-27 06:53] LABS: HEMATOCRIT 24.7 % (36-52); HEMOGLOBIN 8.4 g/dL (12.0-18.0); MEAN CORPUSCULAR HEMOGLOBIN 31 pg (27-31); MEAN CORPUSCULAR HGB CONC 34 g/dL (33-37); MEAN CORPUSCULAR VOLUME 90.7 fL (80-94); PLATELET COUNT (AUTO) 27 K/uL (140-450); RED BLOOD CELL COUNT(AUTO) 2.73 MIL/uL (4.20-6.10); RED CELL DISTRIBUTION WIDTH 15.3 % (11.6-13.7)
[2019-07-27 06:56] LABS: MAGNESIUM 2.3 mg/dL (1.8-2.4); PHOSPHORUS 3.2 mg/dL (2.5-4.9)
--- NOTE | 2019-07-27 07:10 | NUR ---
RECEIVED BEDSIDE REPORT FROM RAFFY IN HOME TUTOR RN, FOR CONTINUITY OF CARE. PATIENT IS CONFUSED, MOANING, UNABLE TO FOLLOW COMMANDS. PATIENT SKIN IS WARM, DRY, AFEBRILE, INTACT. HE HAS PERIPHERAL IV SITE TO LEFT AC, ASYMPTOMATIC AND PATENT. PATIENT IS ON NASAL CANNULA 2LPM, TACHYPNEIC. PATIENT IS SR ON MONITOR, DENIES PAIN. ABD IS SOFT, NON-TENDER. HE HAS CHAN CATHETER IN PLACE. HOB SEMI LEWIS POSITION. NO SIGNS OF DISTRESS AT THIS TIME. WILL CONTINUE TO MONITOR.
[2019-07-27 07:20] LABS: WHITE BLOOD COUNT (AUTO) 1.3 K/uL (4.8-10.8)
[2019-07-27 08:00] LABS: BASOPHILS % (MANUAL) 0 % (0-2); EOSINOPHILS % (MANUAL) 0 % (0-4); LYMPHOCYTES % (MANUAL) 42 % (20-46); METAMYELOCYTES % 2 % (0-0); MONOCYTES % (MANUAL) 3 % (5-12); MYELOCYTES % 1 % (0-0)
[2019-07-27] MEDS: PIPERACILLIN/TAZOBACTAM 3.375 GM in DEXTROSE 5% 50 ML IV SCH ×2 (08:31→16:25)
[2019-07-27] MEDS: PANTOPRAZOLE 40 MG INJ VIAL IVP SCH (08:31)
--- NOTE | 2019-07-27 08:45 | NUR ---
ADMINISTERED SCHEDULED MEDS, HELD PO MEDS DUE TO PATIENT BEING CONFUSED, OGT/NGT IS CONTRAINDICATED AT THIS TIME DUE TO RISK OF BLEEDING SINCE PLATELETS ARE 27, RESIDENT PHYSICIANS AWARE. PATIENT CLEANED, REPOSITIONED FOR COMFORT, ORAL CARE GIVEN.
[2019-07-27] MEDS: LACTOBACILLUS RHAMNOSUS GG 1 EACH CAP PO SCH (09:00)
[2019-07-27] MEDS: THIAMINE 100 MG TAB PO SCH (09:00)
[2019-07-27] MEDS: MULTIVITAMIN 1 TAB PO SCH (09:00)
[2019-07-27] MEDS: DOCUSATE SODIUM 100 MG GELCAP PO SCH ×2 (09:00→21:34)
[2019-07-27] MEDS: FOLIC ACID 1 MG TAB PO SCH (09:00)
[2019-07-27] MEDS: AMIODARONE 200 MG TAB PO SCH ×3 (09:00→21:34)
--- NOTE | 2019-07-27 09:10 | NUR ---
RESIDENT PHYSICIANS AT BEDSIDE TO ROUND ON PATIENT, UPDATED ON PATIENT'S CONDITION. PER DR. REED, TRY TO GIVE PO AMIODARONE AFTER A BEDSIDE SWALLOW EVAL.
[2019-07-27] MEDS: DEXT 5% /NACL 0.9% 1,000 ML IV SCH (09:13)
[2019-07-27 09:45] LABS: ALBUMIN 1.8 g/dL (3.4-5.0); ANION GAP 14.8 (8-16); CARBON DIOXIDE 25.2 mmol/L (21-32); CREATININE 0.9 mg/dL (0.7-1.3); TOTAL BILIRUBIN 7.1 mg/dL (0.0-1.0)
--- NOTE | 2019-07-27 09:50 | NUR ---
BEDSIDE SWALLOW EVAL DONE, PATIENT WAS ABLE TO TOLERATE A SPOONFUL OF APPLE SAUCE AND ICE CHIPS. PATIENT ABLE TO FOLLOW SOME COMMANDS, GIVEN PO AMIODARONE. PATIENT TOLERATED WELL, WILL CONTINUE TO MONITOR.
--- NOTE | 2019-07-27 10:00 | NUR ---
PT UNABLE TO SWALLOW PO MEDS @ THIS TIME. MD ORANTES MADE AWARE. ORDER TO D/C PO MEDS. IF ARRHYTHMIAS BEGIN NOTIFY AND WILL RESTART AMIODARONE IV DRIP. VSS. SAFETY PRECAUTIONS REMAIN IN PLACE. BED LOW AND LOCKED. CALL LIGHT WITHIN REACH. WILL CONTINUE TO MONITOR. Addendum: 07/28/19 at 0156 by Lisa Severino RN ERROR. WRONG DOCUMENTATION
--- NOTE | 2019-07-27 10:03 | NUR ---
PT UNABLE TO TOLERATE PO MEDS AT THIS TIME. MD ORANTES MADE AWARE. NEW ORDERS TO D/C ALL PO MEDS AND TO NOTIFY HIM IF ARRHYTHMIAS REOCCUR. Addendum: 07/28/19 at 0156 by Lisa Severino RN ERROR. WRONG DOCUMENTATION
[2019-07-27] MEDS ORDERED: MULTIVITAMIN-12 10 ML, THIAMINE 100 MG, FOLIC ACID 1 MG, MAGNESIUM SULFATE 50% 2,000 MG... IV SCH ×5 (11:00)
--- NOTE | 2019-07-27 11:21 | NUR ---
PATIENT HAS FLACC 8, MOANING AND CRYING. ADMINISTERED MORPHINE 2MG IVP PRN.
--- NOTE | 2019-07-27 12:24 | NUR ---
PATIENT'S SON IS AT BEDSIDE, UPDATED ON PATIENT'S CONDITION.
--- NOTE | 2019-07-27 12:37 | NUR ---
PATIENT'S DAUGHTER IS AT BEDSIDE, UPDATED ON PATIENT'S CONDITION.
[2019-07-27] MEDS: MUPIROCIN CA NASAL 2% 1GM TUBE NS SCH (12:56)
[2019-07-27] MEDS: ACETAMINOPHEN 325 MG TAB PO PRN (12:57)
[2019-07-27] MEDS: CHLORHEXADINE GLUC 2% CLOTH TP SCH (13:04)
[2019-07-27] MEDS: INSULIN LISPRO SLIDING SCALE 100 UNITS/ML VIAL SUBQ PRN ×3 (13:05→21:46)
--- NOTE | 2019-07-27 14:10 | NUR ---
PATIENT'S AT BEDSIDE, UPDATED ON PATIENT'S CONDITION
[2019-07-27 14:14] LABS: LACTATE DEHYDROGENASE 1152 IU/L (0-214)
[2019-07-27 14:28] LABS: FERRITIN 10273 ng/mL (30 - 400); TRANSFERRIN 129 mg/dL (200 - 370)
--- NOTE | 2019-07-27 15:49 | NUR ---
PER DR. REED, PLACE PATIENT ON BIPAP FOR 1 HR. RT AT BEDSIDE
--- NOTE | 2019-07-27 15:58 | NUR ---
PLACED PT ON WOODWARD V60 PER ORDER, ST 12/5 RR 10 FIO2 28, ALARMS ARE ON AND AUDIBLE, PT IN HF IRRITABLE, WEARING F\F MASK SIZE LG, GEL UNDER MASK BMV HOB, BIPAP PLUGGED INTO RED OUTLET
[2019-07-27] MEDS: HALOPERIDOL IM 5 MG/ML VIAL IM SCH ×2 (16:24→21:33)
--- NOTE | 2019-07-27 16:49 | NUR ---
REMOVED PATIENT OFF BIPAP, SINCE PATIENT HAS BEEN ON BIPAP FOR 1 HOUR.
--- NOTE | 2019-07-27 18:40 | NUR ---
PATIENT IS STARTING TO BECOME MORE TACHYPNEIC, PLACED BACK ON BIPAP.
--- NOTE | 2019-07-27 19:30 | NUR ---
RECEIVED PT RESTING IN BED. RESPONDS TO TACTILE STIMULI. A/O X0. PERRL. CURRENTLY ON BIPAP. TOLERATING WELL. LUNGS CLEAR THROUGHOUT. BOWEL SOUNDS ACTIVE X4. ABDOMEN SOFT, NON-DISTENDED, AND NON-TENDER TO PALPATION. DOUBLE LUMEN PERIPHERAL IV TO LT AC INFUSING BANANA BAG @ 50 ML/HR AND D5 NS @ 50 ML/HR. INDWELLING URINARY CATH PATENT DRAINING CLEAR, ORANGE, URINE TO GRAVITY. PT RESTLESS AND MOVING FROM SIDE TO SIDE IN BED. AT BEDSIDE AT THIS TIME. SAFETY PRECAUTIONS REMAIN IN PLACE. BED LOW AND LOCKED. CALL LIGHT WITHIN REACH. WILL CONT TO MONITOR FOR CHANGES.
--- NOTE | 2019-07-27 19:38 | NUR ---
RECEIVED PATIENT ON WOODWARD V60 AT 12/5,10,28%. ALARMS AUDIBLE AND WORKING. BIPAP PLUGGED INTO RED OUTLET. BMV AT HEAD OF BED. PT IS IRRITABLE. SATURATION 93%. WILL CONTINUE TO MONITOR.
--- NOTE | 2019-07-27 21:50 | NUR ---
FLACC 8. REPOSITIONED. NON PHARMACOLOGIC INTERVENTIONS INEFFECTIVE. NO RESPIRATORY DISTRESS OBSERVED. MORPHINE ADMINISTERED ORDERED. NO ASE AT THIS TIME. SAFETY PRECAUTIONS REMAIN IN PLACE. WILL CONTINUE TO MONITOR FOR CHANGES.
--- NOTE | 2019-07-27 22:00 | NUR ---
PT UNABLE TO SWALLOW PO MEDS @ THIS TIME. MD ORANTES MADE AWARE. ORDER TO D/C PO MEDS. IF ARRHYTHMIAS BEGIN NOTIFY AND WILL RESTART AMIODARONE IV DRIP. VSS. SAFETY PRECAUTIONS REMAIN IN PLACE. BED LOW AND LOCKED. CALL LIGHT WITHIN REACH. WILL CONTINUE TO MONITOR.
--- NOTE | 2019-07-27 23:22 | NUR ---
PT TOOK OFF BIPAP AND PLACED ON 2 LNC. PT SAT 93-94%. RN RAFFY NOTIFIED
[2019-07-28] VITALS (12 sets, daily range): BP systolic 91–143; BP diastolic 56–82
[2019-07-28] MEDS: PIPERACILLIN/TAZOBACTAM 3.375 GM in DEXTROSE 5% 50 ML IV SCH ×3 (00:22→16:09)
--- NOTE | 2019-07-28 00:30 | NUR ---
PT WITH TEMPORAL TEMP OF 102.9. COOLING MEASURES INITIATED. MD ORANTES NOTIFIED. NEW ORDERS FOR APAP SUPPOSITORY. ADMINISTERED ORDERED WITHOUT INCIDENT.
[2019-07-28] MEDS: ACETAMINOPHEN 325 MG SUPP RC PRN ×2 (00:36→11:50)
--- NOTE | 2019-07-28 01:00 | NUR ---
PT AFEBRILE @ 98.8. VSS. FLACC 0. REPOSITIONED WITH PRESSURE AREAS OFFLOADED. BED LOW AND LOCKED. CALL LIGHT LEFT WITHIN REACH. WILL CONTINUE TO MONITOR.
[2019-07-28] MEDS: LORazepam 2 MG/ML VIAL IVP PRN ×2 (01:01→03:04)
[2019-07-28 05:18] LABS: MEAN CORPUSCULAR HEMOGLOBIN 31 pg (27-31); MEAN CORPUSCULAR HGB CONC 34 g/dL (33-37); MEAN CORPUSCULAR VOLUME 91.7 fL (80-94); RED BLOOD CELL COUNT(AUTO) 2.17 MIL/uL (4.20-6.10); RED CELL DISTRIBUTION WIDTH 15.7 % (11.6-13.7)
--- NOTE | 2019-07-28 05:25 | NUR ---
DR. Petrona BRAND WAS INFORMED AND AWARE THAT NGT WAS UNABLE TO INSERT TO THIS PATIENT BECAUSE THE PLATELET IS LOW 27, SO AMIODARONE PO WAS NOT GIVEN TOO; NO FURTHER ORDER MADE.
[2019-07-28] MEDS: HALOPERIDOL IM 5 MG/ML VIAL IM SCH ×5 (05:36→23:35)
[2019-07-28 05:39] LABS: HEMATOCRIT 19.9 % (36-52); HEMOGLOBIN 6.7 g/dL (12.0-18.0); WHITE BLOOD COUNT (AUTO) 1.2 K/uL (4.8-10.8)
[2019-07-28 05:40] LABS: PLATELET COUNT (AUTO) 17 K/uL (140-450)
[2019-07-28 05:46] LABS: ANION GAP 13.2 (8-16); CARBON DIOXIDE 25.4 mmol/L (21-32); POTASSIUM 3.6 mmol/L (3.5-5.1)
[2019-07-28 05:51] LABS: MAGNESIUM 2.5 mg/dL (1.8-2.4); PHOSPHORUS 3.7 mg/dL (2.5-4.9)
--- NOTE | 2019-07-28 06:15 | NUR ---
PT REMOVED IV FROM LT AC @ THIS TIME. RESTRAINTS PLACED PER MD ORANTES ORDERS. NEW IV STARTED IN LT HAND, 22G. RESUMED FLUIDS. ATIVAN ADMINISTERED PRN ORDERED. VSS. AWARE. SAFETY PRECAUTIONS REMAIN IN PLACE. BED LOW AND LOCKED. WILL CONTINUE TO MONITOR.
[2019-07-28 06:45] LABS: BASOPHILS % (MANUAL) 0 % (0-2); EOSINOPHILS % (MANUAL) 0 % (0-4); LYMPHOCYTES % (MANUAL) 41 % (20-46); MONOCYTES % (MANUAL) 8 % (5-12)
[2019-07-28] MEDS: BLOOD GLUCOSE MONITORING 1 DEV DEV FS SCH ×4 (07:02→21:38)
--- NOTE | 2019-07-28 07:15 | NUR ---
ENDORSED PT TO DAYSHIFT FOR CONTINUITY OF CARE.
--- NOTE | 2019-07-28 07:25 | NUR ---
BEDSIDE REPORT RECEIVED FROM INFORMATION ASSISTANT NURSE RAFFY, PT RESTLESS, INTERMITTENT MOANING, DOES NOT FOLLOW COMMANDS, RESP EVEN UNLABORED, INCREASED RR 28-32, ON L3 NC O2, HR 80'S, O2 SAT 90, SINUS RHYTHM ON MONITOR, LEFT THUMB 22G IV INFUSING BANANA BAG SITE WNL, TAPE REINFORCED, PT IN SOFT WRIST RESTRAINTS BILAT, NO S/S OF INJURY, ABD ROUND LARGE, SOFT, +BS IN ALL 4Q, BILAT LOWER EXT WITH EDEMA +1, POC REVIEWED, ALL SAFETY MEASURES IN PLACE, WILL CONTINUE TO MONITOR.
[2019-07-28] MEDS ORDERED: DEXT 5% /NACL 0.9% 1,000 ML IV SCH (07:30)
--- NOTE | 2019-07-28 07:40 | NUR ---
DR ORANTES AND MEDICAL TEAM AT BEDSIDE.
[2019-07-28] MEDS ORDERED: MORPHINE SULFATE 4 MG/ML SYR ONE (07:43)
[2019-07-28] MEDS: MORPHINE SULFATE 4 MG/ML SYR IVP PRN ×2 (07:48→11:51)
--- NOTE | 2019-07-28 07:48 | NUR ---
PT MOANING, RESTLESS, TACHYPNEAC WITH RR 30, MORPHINE 4MG IVP GIVEN PER DR REED.
--- NOTE | 2019-07-28 08:13 | NUR ---
PT PLACED ON 6L OXYMIZER AND O2 SAT IS 95%
[2019-07-28] MEDS: LACTOBACILLUS RHAMNOSUS GG 1 EACH CAP PO SCH (09:00)
[2019-07-28] MEDS: PANTOPRAZOLE 40 MG INJ VIAL IVP SCH (09:08)
[2019-07-28] MEDS ORDERED: BISACODYL 10 MG SUPP RC SCH (10:30)
--- NOTE | 2019-07-28 11:40 | NUR ---
NGT RE ADVANCED 7CM PER RADIOLOGY REPORT, REQUESTED XRAY AGAIN FOR PLACEMENT CONFIRMATION.
[2019-07-28] MEDS ORDERED: ACETAMINOPHEN 650 MG SUPP RC PRN (11:45)
--- NOTE | 2019-07-28 12:00 | NUR ---
REPEAT X RAY DONE, PT RESTLESS, MOANING, FLACC 6, MEDICATE WITH MORPHINE, TYLENOL SUPP FOR TEMP 100.5.
[2019-07-28] MEDS: CHLORHEXADINE GLUC 2% CLOTH TP SCH (13:00)
--- NOTE | 2019-07-28 13:25 | NUR ---
TEMP DECREASED TO 99.2 TA, WILL START BLOOD TRANSFUSION.
--- NOTE | 2019-07-28 13:35 | NUR ---
PRBC VERIFIED WITH 2 RNS, FAHEEM/MICKEY, TRANSFUSION STARTED, WILL MONITOR CLOSELY FOR ANY REACTIONS.
--- NOTE | 2019-07-28 13:45 | NUR ---
OK TO USE NGT, AM MEDS GIVEN VIA NGT.
[2019-07-28] MEDS: FOLIC ACID 1 MG TAB PO SCH (13:50)
[2019-07-28] MEDS: THIAMINE 100 MG TAB PO SCH (13:50)
[2019-07-28] MEDS: MULTIVITAMIN 1 TAB PO SCH (13:50)
[2019-07-28] MEDS: AMIODARONE 200 MG TAB PO SCH ×2 (13:50→21:23)
[2019-07-28] MEDS: DOCUSATE SODIUM 100 MG GELCAP PO SCH ×2 (13:50→21:23)
--- NOTE | 2019-07-28 13:50 | NUR ---
NO REACTIONS NOTED FROM TRANSFUSION, WILL CONTINUE TO MONITOR
[2019-07-28] MEDS: MUPIROCIN CA NASAL 2% 1GM TUBE NS SCH (13:51)
--- NOTE | 2019-07-28 15:10 | NUR ---
DAUGHTER ART AT BEDSIDE, WANTS TO SPEAK TO DR REED, DR REED NOTIFIED.
--- NOTE | 2019-07-28 16:00 | NUR ---
PT RESTING QUIETLY, APPEARS IN NO PAIN OR DISCOMFORT, NGT FEED STARTED AT 10ML/HR GLUCERNA 1.2 WATER FLUSH 50ML/4HR, GOAL RATE IS 80ML/HR. WILL CONTINUE TO MOTNIOR. PT'S SISTERS AT BEDSIDE.
[2019-07-28] MEDS: NACL 0.9% 1,000 ML IV SCH (16:09)
--- NOTE | 2019-07-28 16:15 | NUR ---
BLOOD TRANSFUSION COMPLETED, NO S/S REACTION
--- NOTE | 2019-07-28 16:41 | NUR ---
WIDE COMPLEX TACHYCARDIA RATE 110-112 LASTING APPROX 5MIN, SELF CONVERTED BACK TO NSR HR 75, BP 108/69, RR 26, O2SAT 94%, DR REED CALLED AND MADE AWARE. 12 LEAD EKG STAT NEXT TIME PT GOES IN DYSRHYTHMIA PER DR REED.
--- NOTE | 2019-07-28 18:00 | NUR ---
SMALL STOOL X1, STOOL OB COLLECTED, SENT TO LAB, PERICARE DONE, LINEN AND GOWN CHANGED.
[2019-07-28] MEDS ORDERED: VANCOMYCIN PER PHARMACY MC PRN (19:30)
--- NOTE | 2019-07-28 19:30 | NUR ---
RECEIVED PT RESTING IN BED. RESPONDS TO TACTILE STIMULI. A/O X0. PERRL. CURRENTLY ON 6 L OXIMIZER. TOLERATING WELL. LUNGS DIMINISHED THROUGHOUT. NG TUBE TO RT NARES PATENT, + PLACEMENT VERIFIED WITH AIR BOLUS. GLUCERNA INFUSING @20 ML/HR WITH A GOAL OF 80 ML/HR. BOWEL SOUNDS ACTIVE X4. ABDOMEN SOFT, NON-DISTENDED, AND NON-TENDER TO PALPATION. DOUBLE LUMEN PERIPHERAL IV TO RT WRIST INFUSING NS @ 75 ML/HR. PERIPHERAL IV TO LT THUMB PATENT. INDWELLING URINARY CATH PATENT DRAINING CLEAR, ORANGE, URINE TO GRAVITY. PT RESTLESS AND MOVING FROM SIDE TO SIDE IN BED. DAUGHTER AT BEDSIDE AT THIS TIME. SAFETY PRECAUTIONS REMAIN IN PLACE. BED LOW AND LOCKED. CALL LIGHT WITHIN REACH. WILL CONT TO MONITOR FOR CHANGES.
--- NOTE | 2019-07-28 19:49 | NUR ---
RECEIVED PATIENT ON 6L OXYMIZER, PULSE OX SAT 98%. TITRATED OXYGEN TO 4L, PULSE OX SAT 96%. NASOTRACHEALLY SUCTIONED SCANT AMOUNT OF THICK, YELLOW SECRETIONS WITH BLOOD AND CLOTS. ATTEMPTED ORAL CARE, PATIENT VERY RESTLESS. WILL CONTINUE TO MONITOR.
[2019-07-28] MEDS ORDERED: VANCOMYCIN 1GM/DEXT 5% PREMIX 200 ML IV SCH (20:00)
[2019-07-28 20:57] LABS: BASOPHILS % (AUTO) 1.1 % (0.0-2.0); EOSINOPHILS % (AUTO) 0.1 % (0.0-4.0); HEMATOCRIT 22.1 % (36-52); HEMOGLOBIN 7.4 g/dL (12.0-18.0); LYMPHOCYTES # (AUTO) 0.4 K/uL (2.0-11.5); LYMPHOCYTES % (AUTO) 36.8 % (20.5-51.1); MEAN CORPUSCULAR HEMOGLOBIN 31 pg (27-31); MEAN CORPUSCULAR HGB CONC 34 g/dL (33-37); MEAN CORPUSCULAR VOLUME 92.1 fL (80-94); MONOCYTES % (AUTO) 2.4 % (1.7-9.3); NEUTROPHILS # (AUTO) 0.6 K/uL (1.8-7.7); NEUTROPHILS % (AUTO) 59.6 % (42.2-75.2); RED BLOOD CELL COUNT(AUTO) 2.39 MIL/uL (4.20-6.10); RED CELL DISTRIBUTION WIDTH 16.1 % (11.6-13.7)
[2019-07-28 20:59] LABS: PLATELET COUNT (AUTO) 13 K/uL (140-450)
[2019-07-28] MEDS ORDERED: VANCOMYCIN 1,000 MG VIAL ONE ×2 (21:07→23:28)
[2019-07-28 21:12] LABS: ANION GAP 10.8 (8-16); CARBON DIOXIDE 26.4 mmol/L (21-32); CREATININE 0.9 mg/dL (0.7-1.3); POTASSIUM 4.2 mmol/L (3.5-5.1)
--- NOTE | 2019-07-28 21:48 | NUR ---
DR JACK @ BEDSIDE AT THIS TIME. UPDATED ON PT CONDITION AND NEW CRITICAL LABS.
[2019-07-28] MEDS ORDERED: VANCOMYCIN 500 MG in DEXTROSE 5% 100 ML IV SCH (22:00)
[2019-07-28] MEDS ORDERED: MEROPENEM 1,000 MG VIAL IV ONE (22:06)
[2019-07-28] MEDS: MEROPENEM 1,000 MG in NACL 0.9% 100 ML IV SCH (22:20)
[2019-07-29] VITALS (13 sets, daily range): BP systolic 95–136; BP diastolic 55–72
--- NOTE | 2019-07-29 | NUR ---
PT RR 40/MIN, LABORED. THRASHING BACK AND FORTH IN BED AND MOANING. FLACC 8. REPOSITIONED. NON PHARMACOLOGIC INTERVENTIONS INEFFECTIVE. MEDICATED WITH PRN MORPHINE ORDERED. NO ASE NOTED. SAFETY PRECAUTIONS REMAIN IN PLACE. BED LOW AND LOCKED WITH HOB @ 35 DEGREES. WILL CONTINUE TO MONITOR.
[2019-07-29] MEDS: NACL 0.9% 1,000 ML IV SCH (00:08)
--- NOTE | 2019-07-29 02:00 | NUR ---
ORAL CARE PROVIDED. REPOSITIONED WITH PRESSURE AREAS OFFLOADED. PERICARE PROVIDED. SAFETY PRECAUTIONS REMAIN IN PLACE. BED LOW AND LOCKED. CALL LIGHT LEFT WITHIN REACH. WILL CONTINUE TO MONITOR FOR CHANGES.
--- NOTE | 2019-07-29 04:00 | NUR ---
VSS. REPOSITIONED PT. REMAINS ON 4 L VIA OXIMIZER. PERICARE PROVIDED. SAFETY PRECAUTIONS REMAIN IN PLACE. BED LOW AND LOCKED. CALL LIGHT WITHIN REACH. WILL CONTINUE TO MONITOR FOR CHANGES.
[2019-07-29] MEDS ORDERED: MEROPENEM 1,000 MG VIAL IV ONE (04:29)
[2019-07-29] MEDS: MEROPENEM 1,000 MG in NACL 0.9% 100 ML IV SCH ×3 (04:36→20:11)
[2019-07-29] MEDS: HALOPERIDOL IM 5 MG/ML VIAL IM SCH ×3 (05:09→17:16)
[2019-07-29 06:33] LABS: ANION GAP 10.7 (8-16); CARBON DIOXIDE 27.4 mmol/L (21-32); CREATININE 0.9 mg/dL (0.7-1.3); POTASSIUM 4.1 mmol/L (3.5-5.1)
[2019-07-29 06:38] LABS: MAGNESIUM 2.4 mg/dL (1.8-2.4); PHOSPHORUS 4.2 mg/dL (2.5-4.9)
--- NOTE | 2019-07-29 07:25 | NUR ---
REPORT GIVEN TO FLAKITO SYKESFT NURSE FOR CONTINUITY OF CARE. VSS. NO ACUTE DISTRESS. SAFETY PRECAUTIONS REMAIN IN PLACE. BED LOW AND LOCKED. CALL LIGHT WITHIN REACH.
--- NOTE | 2019-07-29 07:26 | NUR ---
RECEIVED BEDSIDE REPORT FROM TILE LAYER SUPERVISOR NURSE, PT IS DROWSY, ABLE TO FOLLOW COMMANDS SOMETIMES, VSS, DENIES PAIN, NO S/S OF DISTRESS, DIMINISHED LUNG SOUNDS MONTY. ON OXYMIZER AT 4L, SR ON MEAT HOSTESS, CAP REFILL <2 SEC, LARGE ROUND ABDOMEN WITH ACTIVE BOWEL SOUNDS, NGT TO RIGHT NARES, FEEDING WITH GLUCERNA AT 40 ML/HR, 10ML RESIDUALS NOTED, CHAN CATHETER IN PLACE WITH SEDIMENT GRISELDA URINE VIA GRAVITY, ON SOFT MONTY WRIST RESTRAIN, ABLE TO MOVE ALL EXTREMITIES, SKIN IS WARM AND DRY TO TOUCH, NO OPEN WOUNDS, IV TO RIGHT HAND, 20GA, PATENT, RUNNING NS AT 70 ML/HR, IV TO LEFT THUMB 22GA, PATENT AND SL. HOB ELEVATED TO 30 DEGREES, SAFETY MEASURES IN PLACE, POSITION CHANGED FOR OFF LOAD PRESSURE, WILL CONTINUE TO MONITOR.
[2019-07-29] MEDS: BLOOD GLUCOSE MONITORING 1 DEV DEV FS SCH ×4 (07:29→20:19)
--- NOTE | 2019-07-29 09:40 | NUR ---
SCHEDULED MEDICATION GIVEN, PATIENT TOLERATED WELL.
[2019-07-29] MEDS: DOCUSATE SODIUM 100 MG GELCAP PO SCH ×2 (09:49→20:10)
[2019-07-29] MEDS: LACTOBACILLUS RHAMNOSUS GG 1 EACH CAP PO SCH (09:49)
[2019-07-29] MEDS: PANTOPRAZOLE 40 MG INJ VIAL IVP SCH (09:49)
[2019-07-29] MEDS: VANCOMYCIN 1,000 MG in NACL 0.9% 250 ML IV SCH ×2 (09:49→17:16)
[2019-07-29] MEDS: MULTIVITAMIN 1 TAB PO SCH (09:50)
[2019-07-29] MEDS: AMIODARONE 200 MG TAB PO SCH ×2 (09:50→20:10)
[2019-07-29] MEDS: NACL 0.45% 1,000 ML IV SCH ×2 (09:50→23:08)
[2019-07-29] MEDS: THIAMINE 100 MG TAB PO SCH (09:50)
[2019-07-29] MEDS: FOLIC ACID 1 MG TAB PO SCH (09:50)
[2019-07-29] MEDS: MORPHINE SULFATE 4 MG/ML SYR IVP PRN ×4 (09:52→20:00)
--- NOTE | 2019-07-29 10:00 | NUR ---
PATIENT IS RESTLESSNESS, VSS, STATED IN PAIN, MORPHINE GIVEN, FAMILY MEMBERS AT BEDSIDE.
[2019-07-29 10:43] LABS: BASOPHILS % (AUTO) 0.5 % (0.0-2.0); EOSINOPHILS % (AUTO) 0.4 % (0.0-4.0); HEMATOCRIT 22.4 % (36-52); HEMOGLOBIN 7.3 g/dL (12.0-18.0); LYMPHOCYTES # (AUTO) 0.4 K/uL (2.0-11.5); LYMPHOCYTES % (AUTO) 34.4 % (20.5-51.1); MEAN CORPUSCULAR HEMOGLOBIN 30 pg (27-31); MEAN CORPUSCULAR HGB CONC 33 g/dL (33-37); MEAN CORPUSCULAR VOLUME 92.5 fL (80-94); MONOCYTES % (AUTO) 1.7 % (1.7-9.3); NEUTROPHILS # (AUTO) 0.7 K/uL (1.8-7.7); RED BLOOD CELL COUNT(AUTO) 2.42 MIL/uL (4.20-6.10); RED CELL DISTRIBUTION WIDTH 16.3 % (11.6-13.7)
[2019-07-29 10:46] LABS: PLATELET COUNT (AUTO) 12 K/uL (140-450); WHITE BLOOD COUNT (AUTO) 1.2 K/uL (4.8-10.8)
--- NOTE | 2019-07-29 11:30 | NUR ---
BEDSIDE REPORT RECEIVED FROM NURSE MONY, PT RESTLESS, OCCASIONALLY MOANING, RR 30, SCHEDULED HALDOL GIVEN IM TO LEFT DELTOID, BLOOD SUGAR 131, NO INSULIN NEEDED PER SLIDING SCALE. NGT FEEDING AT 50ML/HR, IVF INFUSING WELL TO R WRIST 20G, SITE WNL, CHAN DRAINING DARK ORANGE URINE TO GRAVITY, PT ON SOFR WRIST RESTRAINTS, NO S/S OF INJURY NOTED, SR ON SATURATOR, POC REVIEWED, WILL CONTINUE TO MONITOR.
[2019-07-29] MEDS: ACETAMINOPHEN 325 MG TAB PO PRN (11:41)
--- NOTE | 2019-07-29 12:10 | NUR ---
AND FAMILY AT BEDSIDE.
--- NOTE | 2019-07-29 13:02 | NUR ---
REPOSITIONED, BED BATH GIVEN, PT RESTING COMFORTABLY
[2019-07-29] MEDS: MUPIROCIN CA NASAL 2% 1GM TUBE NS SCH (13:12)
[2019-07-29] MEDS: CHLORHEXADINE GLUC 2% CLOTH TP SCH (13:12)
--- NOTE | 2019-07-29 14:40 | NUR ---
PT RESTLESS, MOANING, OPENS EYES WHEN CALLED BY NAME, NODS HEAD "YES" WHEN ASKED IF HE IS IN PAIN, GIVEN PRN MORPHINE IVP AT THIS TIME.
--- NOTE | 2019-07-29 15:25 | NUR ---
DR TEE AT BEDSIDE
--- NOTE | 2019-07-29 15:50 | NUR ---
PT PLACED ON BIPAP BY RT.
--- NOTE | 2019-07-29 17:40 | NUR ---
07/29/19 RD FOLLOW UP COMPLETED PLEASE REFER TO NUTRITION ASSESSMENT UNDER CARE ACTIVITY FOR ESTIMATED NUTRITIONAL NEEDS. 1. CONTINUE GLUCERNA 1.2 @ 80ML/HR MEDICALLY APPROPRIATE -THIS PROVIDES 1920ML, 2304 CALORIES, 114G PROTEIN. 2. RECOMMEND TO INCREASE WATER FLUSH TO 100 ML Q4H. 3. WHEN PATIENT IS MEDICALLY STABLE CONSIDER ADVANCING DIET TO HEPATIC SOFT. 4. NUTRITION EDUCATION ON CIRRHOSIS WAS NOT APPROPRIATE AT THIS TIME. 5. RD TO FOLLOW-UP 2-3 DAYS, HIGH RISK TANNA CHRISTENSEN RD
--- NOTE | 2019-07-29 18:00 | NUR ---
PATIENT IS RESTING IN BED AT THIS TIME, NO S/S OF DISTRESS, VSS, FLACC 0, POSITION CHANGED FOR OFF LOAD PRESSURE.
--- NOTE | 2019-07-29 19:15 | NUR ---
REPORT GIVEN TO ELECTRIC DRILL OPERATOR NURSE FOR CONTINUE OF CARE, PT VSS, FLACC 0, NO S/S OF DISTRESS AT THIS TIME.
--- NOTE | 2019-07-29 19:30 | NUR ---
RECEIVED PT FROM [facility] NURSEMON[facility]. RESTING IN BED @ THIS TIME. RESPONDS TO TACTILE STIMULI. A/O X0. PERRL. CURRENTLY ON 4 L OXIMIZER. TOLERATING WELL. LUNGS DIMINISHED THROUGHOUT. NG TUBE TO RT NARES PATENT, + PLACEMENT VERIFIED WITH AIR BOLUS. RESIDUAL 60CC, REPLACED. GLUCERNA INFUSING @50 ML/HR WITH A GOAL OF 80 ML/HR. BOWEL SOUNDS ACTIVE X4. ABDOMEN SOFT, NON-DISTENDED, AND NON-TENDER TO PALPATION. DOUBLE LUMEN PERIPHERAL IV TO RT WRIST INFUSING NS @ 75 ML/HR. PERIPHERAL IV TO LT THUMB PATENT. REMAINS ON SOFT WRIST RESTRAINTS D/T ATTEMPTING TO REMOVE LINES AND MEDICAL EQUIPMENT. INDWELLING URINARY CATH PATENT DRAINING CLEAR, ORANGE, URINE TO GRAVITY. PT RESTLESS AND MOVING FROM SIDE TO SIDE IN BED. SPOUSE AT BEDSIDE AT THIS TIME. SAFETY PRECAUTIONS REMAIN IN PLACE. BED LOW AND LOCKED. CALL LIGHT WITHIN REACH. WILL CONT TO MONITOR FOR CHANGES.
--- NOTE | 2019-07-29 20:00 | NUR ---
PT THRASHING IN BED AND MOANING. REPOSITIONED. NON PHARMACOLOGIC INTERVENTIONS INEFFECTIVE. MEDICATED ORDERED. SAFETY PRECAUTIONS REMAIN IN PLACE. BED LOW AND LOCKED. CALL LIGHT WITHIN REACH. WILL CONTINUE TO MONITOR.
[2019-07-29] MEDS: QUEtiapine FUMARATE 100 MG TAB PO SCH (20:10)
[2019-07-30] VITALS (15 sets, daily range): BP systolic 108–135; BP diastolic 41–75
[2019-07-30] MEDS ORDERED: VANCOMYCIN 1,000 MG VIAL ONE (00:05)
[2019-07-30] MEDS: VANCOMYCIN 1,000 MG in NACL 0.9% 250 ML IV SCH ×2 (00:15→09:55)
[2019-07-30] MEDS: MORPHINE SULFATE 4 MG/ML SYR IVP PRN ×2 (01:41→05:56)
--- NOTE | 2019-07-30 01:45 | NUR ---
PT MOANING. FLACC 7. REPOSITIONED. NON PHARMACOLOGIC INTERVENTIONS INEFFECTIVE. MEDICATED ORDERED WITHOUT INCIDENT. SAFETY PRECAUTIONS REMAIN IN PLACE. BED LOW AND LOCKED. CALL LIGHT WITHIN REACH. WILL CONTINUE TO MONITOR FOR CHANGES.
[2019-07-30] MEDS: MEROPENEM 1,000 MG in NACL 0.9% 100 ML IV SCH ×3 (04:35→20:35)
[2019-07-30 06:11] LABS: LD4 FRACTION 9 % (5-13)
[2019-07-30] MEDS: BLOOD GLUCOSE MONITORING 1 DEV DEV FS SCH ×4 (06:56→20:56)
[2019-07-30 07:32] LABS: ANION GAP 6.8 (8-16); CARBON DIOXIDE 32.6 mmol/L (21-32); CREATININE 0.9 mg/dL (0.7-1.3); POTASSIUM 4.4 mmol/L (3.5-5.1)
--- NOTE | 2019-07-30 08:00 | NUR ---
THE PT IS FLAILING AROUND IN BED AND HAS TUBE FEEDING SATURATING THE BED. THE CHARGE NURSE AND I, WELL SOME STUDENTS CLEANED THE BED AND CHANGED OUT THE LINEN. THE PT IS CALMER NOW. I WILL GIVE SEROQUEL AND MORPHINE INDICATED.
[2019-07-30 08:01] LABS: PHOSPHORUS 4.1 mg/dL (2.5-4.9)
[2019-07-30 08:22] LABS: HEMATOCRIT 20.5 % (36-52); HEMOGLOBIN 6.7 g/dL (12.0-18.0); MEAN CORPUSCULAR HEMOGLOBIN 31 pg (27-31); MEAN CORPUSCULAR HGB CONC 33 g/dL (33-37); MEAN CORPUSCULAR VOLUME 93.2 fL (80-94); RED CELL DISTRIBUTION WIDTH 15.9 % (11.6-13.7)
[2019-07-30 08:23] LABS: BASOPHILS % (AUTO) 0.2 % (0.0-2.0); EOSINOPHILS % (AUTO) 0.5 % (0.0-4.0); LYMPHOCYTES # (AUTO) 0.4 K/uL (2.0-11.5); LYMPHOCYTES % (AUTO) 41.3 % (20.5-51.1); NEUTROPHILS # (AUTO) 0.5 K/uL (1.8-7.7); PLATELET COUNT (AUTO) 13 K/uL (140-450)
[2019-07-30 08:25] LABS: WHITE BLOOD COUNT (AUTO) 0.9 K/uL (4.8-10.8)
[2019-07-30] MEDS: DOCUSATE SODIUM 100 MG GELCAP PO SCH ×2 (09:00→20:36)
[2019-07-30] MEDS: LACTOBACILLUS RHAMNOSUS GG 1 EACH CAP PO SCH (09:10)
[2019-07-30] MEDS: THIAMINE 100 MG TAB PO SCH (09:10)
[2019-07-30] MEDS: QUEtiapine FUMARATE 100 MG TAB PO SCH ×2 (09:11→20:24)
[2019-07-30] MEDS: MULTIVITAMIN 1 TAB PO SCH (09:19)
[2019-07-30] MEDS: FOLIC ACID 1 MG TAB PO SCH (09:26)
[2019-07-30] MEDS: AMIODARONE 200 MG TAB PO SCH ×2 (09:26→20:24)
[2019-07-30] MEDS: PANTOPRAZOLE 40 MG INJ VIAL IVP SCH (09:28)
[2019-07-30 09:30] LABS: MAGNESIUM 2.5 mg/dL (1.8-2.4)
[2019-07-30 09:47] LABS: ALBUMIN 1.6 g/dL (3.4-5.0); BILIRUBIN,DIRECT 4.3 mg/dL (0.0-0.3)
[2019-07-30] MEDS: MORPHINE SULFATE 2 MG/ML SYR IVP PRN ×4 (09:50→22:50)
--- NOTE | 2019-07-30 10:33 | NUR ---
SPOKE TO PT'S , RAMU RE: FAMILY MEETING WITH DR. GAN AT 1330 TODAY. PER SHE WILL BE HERE.
--- NOTE | 2019-07-30 10:37 | NUR ---
PT'S DAUGHTER CALLED RE FAMILY MEETING WITH DR. GAN. SHE WILL BE HERE AT 1330.
[2019-07-30 11:40] LABS: PROTHROMBIN TIME 10.7 secs (10.8-13.4)
--- NOTE | 2019-07-30 12:00 | NUR ---
I CALLED CRITICAL RESULTS TO DR JACK WHO HAS PUT IN ORDERS. WE WILL TRANFUSE WHEN THE BLOOD IS READY.
[2019-07-30] MEDS: MUPIROCIN CA NASAL 2% 1GM TUBE NS SCH (13:21)
[2019-07-30] MEDS: CHLORHEXADINE GLUC 2% CLOTH TP SCH (13:28)
[2019-07-30] MEDS: VANCOMYCIN 1,250 MG in NACL 0.9% 250 ML IV SCH (17:11)
--- NOTE | 2019-07-30 18:00 | NUR ---
THE FAMILY HAS AGREED TO A PLAN FOR BONE BX. I EDUCATED THE ON PATHOPHYSIOLOGY OF BLOOD DISORDER. ONE UNIT OF PRBCS HAS BEEN TRANFUSED. THE PT HAS BEEN CALMER THROUGHOUT THE DAY.
--- NOTE | 2019-07-30 19:11 | NUR ---
RECEIVED PT FROM AM SHIFT. PT CONFUSED. BILATERAL SOFT WRIST RESTRAINTS NOTED. THRASHES HEAD CONTINUOUSLY. UNABLE TO FOLLOW COMMANDS. ST ON MONITOR. ON OXIMIZER 4L. NPO AT THIS TIME. NGT TO RIGHT NARE NOTED. ON GLUCERNA 1.2 @ 80 ML/HR. F/C IN PLACE. URINE CLEAR, NO SEDIMENT OR FOUL ODOR NOTED. SKIN INTACT. ABLE TO REPOSITION SELF. IV SITE R HAND 20 G AND R WRIST 22 G. ON 1/2 NS @ 70 ML/HR. BED IN LOWEST POSITION SR UP X4. WILL CONTINUE TO OBSERVE.
--- NOTE | 2019-07-30 19:36 | NUR ---
RECEIVED PATIENT ON 4L OXYMIZER, PULSE OX SAT 97%. WILL CONTINUE TO MONITOR CLOSELY.
--- NOTE | 2019-07-30 21:18 | NUR ---
FEEDINGS HELD AT THIS TIME TO REDUCE RISK OF ASPIRATION. PT AGITATED.
--- NOTE | 2019-07-30 21:36 | NUR ---
PT HAD RUN OF [facility] [address] RAIN AT BEDSIDE. EKG PERFORMED. CONVERTED BACK TO SINUS TACH. BED IN LOWEST POSITION. WILL CONTINUE TO FOLLOW UP ANY ADDITIONAL ORDERS.
[2019-07-30] MEDS ORDERED: AMIODARONE 450 MG in DEXTROSE 5% 250 ML IV SCH (21:40)
[2019-07-30] MEDS ORDERED: AMIODARONE 150 MG in DEXTROSE 5% 100 ML IV ONE (21:40)
[2019-07-30] MEDS ORDERED: AMIODARONE 450 MG/9 ML VIAL IV ONE (22:01)
[2019-07-30] MEDS ORDERED: AMIODARONE 150 MG/3 ML VIAL IV ONE (22:01)
--- NOTE | 2019-07-30 22:10 | NUR ---
PT HAD LARGE BM AT THIS TIME. PT CLEANED AND REPOSITIONED. WILL CONTINUE TO OBSERVE.
--- NOTE | 2019-07-30 22:40 | NUR ---
DR. RAIN AT BEDSIDE AT THIS TIME. SPOKE WITH DR. ORDOÑEZ. TO STOP AMIODARONE DRIP AT THIS TIME AND ONLY ADMINISTER AMIODARONE BOLUS.
--- NOTE | 2019-07-30 23:43 | NUR ---
BEDSIDE SWALLOW EVAL PERFORMED. RN AT BEDSIDE. OK TOLERATES THICKENED LIQUIDS. NO SIGNS OF ASPIRATION AT THIS TIME. WILL CONTINUE TO MONITOR. KOFFI MADE AWARE.
[2019-07-31] VITALS (13 sets, daily range): BP systolic 94–152; BP diastolic 44–81
[2019-07-31] MEDS: VANCOMYCIN 1,250 MG in NACL 0.9% 250 ML IV SCH ×3 (00:16→17:00)
[2019-07-31] MEDS: NACL 0.45% 1,000 ML IV SCH ×3 (00:16→18:03)
[2019-07-31 01:45] LABS: ANION GAP 7.5 (8-16); CARBON DIOXIDE 31.5 mmol/L (21-32); CREATININE 0.9 mg/dL (0.7-1.3)
[2019-07-31] MEDS: MORPHINE SULFATE 2 MG/ML SYR IVP PRN ×5 (02:29→23:23)
[2019-07-31] MEDS: MEROPENEM 1,000 MG in NACL 0.9% 100 ML IV SCH ×3 (04:22→20:39)
--- NOTE | 2019-07-31 04:54 | NUR ---
PT HAD LARGE BM AT THIS TIME. PT TURNED AND REPOSITIONED.
--- NOTE | 2019-07-31 05:55 | NUR ---
PT RESTLESS AT THIS TIME. ADMINISTERED MORPHINE 2MG AT THIS TIME
[2019-07-31] MEDS: BLOOD GLUCOSE MONITORING 1 DEV DEV FS SCH ×4 (06:31→21:00)
--- NOTE | 2019-07-31 06:40 | NUR ---
DR. REED AT BEDSIDE AT THIS TIME. UPDATED ON PTS CURRENT CONDITION. WILL CONTINUE TO FOLLOW UP ADDITIONAL ORDERS.
[2019-07-31 07:00] LABS: BASOPHILS % (AUTO) 0.1 % (0.0-2.0); EOSINOPHILS % (AUTO) 0.3 % (0.0-4.0); HEMATOCRIT 25.3 % (36-52); HEMOGLOBIN 8.2 g/dL (12.0-18.0); LYMPHOCYTES # (AUTO) 0.5 K/uL (2.0-11.5); LYMPHOCYTES % (AUTO) 40.9 % (20.5-51.1); MEAN CORPUSCULAR HEMOGLOBIN 30 pg (27-31); MEAN CORPUSCULAR HGB CONC 32 g/dL (33-37); MEAN CORPUSCULAR VOLUME 93.9 fL (80-94); NEUTROPHILS # (AUTO) 0.6 K/uL (1.8-7.7); NEUTROPHILS % (AUTO) 54.7 % (42.2-75.2); RED BLOOD CELL COUNT(AUTO) 2.69 MIL/uL (4.20-6.10); RED CELL DISTRIBUTION WIDTH 16.5 % (11.6-13.7)
--- NOTE | 2019-07-31 07:00 | NUR ---
PT PLACED ON BIPAP WITH SETTINGS CHARTED BREATH SOUNDS PRESENT BILAT PT AMXIOUS DOSE NOT LIKE BIPAP DR REED AWARE WILL CONTINUE TO MONITOR PT ON BIPAP
[2019-07-31 07:07] LABS: PLATELET COUNT (AUTO) 12 K/uL (140-450); WHITE BLOOD COUNT (AUTO) 1.2 K/uL (4.8-10.8)
--- NOTE | 2019-07-31 07:18 | NUR ---
ENDORSED CARE TO INCOMING SHIFT RN FOR CONTINUITY OF CARE.
--- NOTE | 2019-07-31 07:25 | NUR ---
BEDSIDE REPORT RECEIVED FROM LATIN PROFESSOR NURSE, PT AWAKE, O X 1 TO SELF, RESTLESS, TRYING TO PULL OFF BIPAP MASK, RESP RATE 30-40, ON BIPAP, O2SAT 96%, SKIN WARM DRY COLOR WNL, IVF INFUSING WELL TO R WRIST IV, SITE WNL, NGT INPLACE, CHAN DRAINING TO GRAVITY, BILAT WRIST SOFT RESTRAINTS IN PLACE, POC REVIEWED, ALL SAFETY MEASURES IN PLACE, WILL CONTINUE TO ELIZABETH PT BILL AT BEDSIDE.
--- NOTE | 2019-07-31 07:33 | NUR ---
PT THRASHING AROUND, TOOK OFF BIPAP TUBING, DR ORANTES CALLED AND MADE AWARE, OK TO GIVE 0900 DOSE OF SEROQUEL EARLY.
[2019-07-31] MEDS: QUEtiapine FUMARATE 100 MG TAB PO SCH ×2 (07:39→20:38)
--- NOTE | 2019-07-31 08:10 | NUR ---
PT REMOVED FROM BIPAP PLACED ON OXIMIZER 4LPM PT SAT .98 WILL CONTINUE TO MONITOR PT RN AWARE
--- NOTE | 2019-07-31 08:15 | NUR ---
DR BLISS AND MEDICAL TEAM AT BEDSIDE FOR EVAL.
--- NOTE | 2019-07-31 08:18 | NUR ---
BIPAP DC'D PER DR HINKLE, PLACED BACK ON 4L OXYMIZER
--- NOTE | 2019-07-31 08:30 | NUR ---
FAMILY AT BEDSIDE
[2019-07-31] MEDS: LACTOBACILLUS RHAMNOSUS GG 1 EACH CAP PO SCH (09:14)
[2019-07-31] MEDS: PANTOPRAZOLE 40 MG INJ VIAL IVP SCH (09:14)
[2019-07-31] MEDS: DOCUSATE SODIUM 100 MG GELCAP PO SCH ×2 (09:14→20:38)
[2019-07-31] MEDS: FOLIC ACID 1 MG TAB PO SCH (09:14)
[2019-07-31] MEDS: MULTIVITAMIN 1 TAB PO SCH (09:14)
[2019-07-31] MEDS: AMIODARONE 200 MG TAB PO SCH ×2 (09:15→20:39)
[2019-07-31] MEDS: THIAMINE 100 MG TAB PO SCH (09:15)
[2019-07-31 09:25] LABS: CREATININE 0.9 mg/dL (0.7-1.3)
[2019-07-31 09:27] LABS: TOTAL BILIRUBIN 3.9 mg/dL (0.0-1.0)
[2019-07-31 09:29] LABS: ALBUMIN 1.4 g/dL (3.4-5.0); MAGNESIUM 2.3 mg/dL (1.8-2.4); PHOSPHORUS 3.6 mg/dL (2.5-4.9)
--- NOTE | 2019-07-31 09:45 | NUR ---
PERICARE DONE, CHAN CARE DONE, BEDBATH GIVEN, PT FOLLOWS COMMANDS, SPEAKS WITH GARBLED VOICE, PT KNOWS HIS NAME AND THAT HE IS IN HOSPITAL. POSITIONED FOR COMFORT, WILL CONTINUE TO MONITOR.
--- NOTE | 2019-07-31 10:50 | NUR ---
APPROX 4MIN LONG WIDE COMPLEX TACHYCARDIA, BP STABLE, O2SAT 98%, GOOD PULSE, DR REED NOTIFIED, 12L KEG ORDERED, RT TIFFANIE CALLED.
--- NOTE | 2019-07-31 11:07 | NUR ---
WIDE COMPLEX TACHYCARDIA LASTING APPROX 12MIN, DR REED AT BEDSIDE, 12L EKG DONE.
--- NOTE | 2019-07-31 11:20 | NUR ---
WIDE COMPLEX TACHYCARDIA AGAIN, DR REED AWARE
--- NOTE | 2019-07-31 12:55 | NUR ---
SHWETHA AND COUSIN AT BEDSIDE, STATES SHE WANTS TO BRING IN SOMETHING TO DRINK FOR THE PATIENT,STATED THAT SHE WANTED TO SNEAK IN SOMETHING TO DRINK FOR HIM. EDUCATED THAT PT IS HIGH RISK FOR ASPIRATION SO HE SHOULD NOT HAVE ANYTHING BY MOUTH, VERBALIZED UNDERSTANDING.
[2019-07-31] MEDS: CHLORHEXADINE GLUC 2% CLOTH TP SCH (13:09)
[2019-07-31] MEDS: MUPIROCIN CA NASAL 2% 1GM TUBE NS SCH (13:29)
--- NOTE | 2019-07-31 13:30 | NUR ---
DR ALFONSO AT BEDSIDE FOR EVAL.
--- NOTE | 2019-07-31 15:00 | NUR ---
DR TEE AT BEDSIDE
--- NOTE | 2019-07-31 15:11 | NUR ---
PER DR TEE, O2 DECREASED TO 2L OXYMIZER, INCENTIVE SPIROMETER TEACHING DONE.
[2019-07-31] MEDS ORDERED: ALBUTEROL SULFATE/IPRATROPIU 3 ML SOL IH PRN (15:30)
[2019-07-31 16:03] LABS: D-DIMER 3580 ng/ml (0-400)
--- NOTE | 2019-07-31 16:30 | NUR ---
AT BEDSIDE, ASSISTING WITH ORAL CARE, AND WIPING HIS FACE.
[2019-07-31 16:35] LABS: FIBRINOGEN 404 mg/dL (200-400)
--- NOTE | 2019-07-31 16:45 | NUR ---
EDUCATED ON HOW TO ASSIST WITH INCENTIVE SPIROMETER USE. SHE VERBALIZED FULL UNDERSTANDING, PT RETURN DEMONSTRATES WELL.
--- NOTE | 2019-07-31 18:40 | NUR ---
LARGE FORMED SOFT STOOL X1, PERICARE DONE, PT ABLE TO TURN SIDE TO SIDE ON HIS OWN, POSTIONED FOR COMFORT, PT CONTINUES TO ASK FOR ICE CHIPS, EDUCATED ON ASPIRATION RISK AND NPO STATUS, WILL CONTINUE TO MONTIOR.
[2019-07-31] MEDS: ALBUTEROL SULFATE/IPRATROPIU 3 ML SOL IH SCH (19:11)
--- NOTE | 2019-07-31 19:25 | NUR ---
BEDSIDE REPORT GIVEN TO MENTAL HEALTH ASSISTANT NURSE [facility] IN STABLE CONDITION.
--- NOTE | 2019-07-31 19:30 | NUR ---
RECEIVED REPORT FROM DAYSHIFT NURSE AT PATIENTS BEDSIDE. PATIENT IS AWAKE AND ALERT, ABLE TO FOLLOW COMMANDS, AND MAKE NEEDS KNOWN. PATIENT IS ON OXYMIZER AT 4LPM, SATURATIONS 93%, RHONCHI LUNG SOUNDS. TACHYPNEIC, RESPIRATIONS IN 30's. S1S2, SR ON MONITOR, HEART RATE 87 BPM. ALL PULSES PALPATED. CAP REFILL < 3 SECONDS. PERLL 3MM, BRISK. NGT TO RIGHT NARE, CONNECTED TO TUBE FEEDING-GLUCERNA 1.2 @ 80ML/HR. RIGHT HAND PERIPHERAL IV, 20G, CONNECTED TO IV FLUIDS-1/2 NS @ 70 ML/HR. IV SITE FLUSHED AND PATENT, NO SYMPTOMS. ABDOMEN IS LARGE, SOFT, AND NONTENDER WITH ACTIVE BOWEL SOUNDS. CHAN CATHETER IN PLACE, WITH DARK GRISELDA URINE NOTED WITH SOME SEDIMENT. BILATERAL SOFT WRIST RESTRAINTS IN PLACE, REMOVED TO ASSESS SKIN AND CIRCULATION. NO INJURIES NOTED. SKIN IS INTACT. PATIENT IS ON REVERSE NEUTROPENIC PRECAUTIONS AND CONTACT ISOLATION PRECAUTIONS, ALL PLACARDS IN PLACE. BED IS LOCKED AND IN LOW POSITION, PATIENT IS UPDATED ON TREATMENT PLAN. WILL CONTINUE TO MONITOR.
--- NOTE | 2019-07-31 19:35 | NUR ---
NGT TO RIGHT NARE, CONNECTED TO TUBE FEEDING. AIR CHECK/AUSCULTATION CONFIRMED PLACEMENT. RESIDUALS 0ML AT THIS TIME. SCHEDULED MEDICATIONS ADMINISTERED. PROVIDED PATIENT WITH ORAL CLEANING. PATIENT GARGLED AND RINSED WITH MOUTH WASH. REORIENTED PATIENT TO NPO EXCEPT MEDS STATUS. Addendum: 08/01/19 at 0235 by Carola Stern RN INCORRECT TIME ENTRY-CORRECT FDDE=[id number] NOT 1934
--- NOTE | 2019-07-31 20:15 | NUR ---
BILATERAL SOFT WRIST RESTRAINTS REMOVED. PATIENT IS AWAKE AND ALERT AND RESPONSIVE. ORIENTED TO OXYMIZER AND NGT, PATIENT VERBALIZES UNDERSTANDING, PATIENT AGREES AND SHAKES ON PROMISING TO NOT PULL OUT ANY EQUIPMENT. SKIN AND CIRCULATION WITHIN NORMAL LIMITS. WILL D/C RESTRAINTS.
--- NOTE | 2019-07-31 21:15 | NUR ---
PATIENT PROVIDED ORAL CARE, MOUTH AND TONGUE VERY DRY. ALLOWED PATIENT TO GARGLE AND RINSE MOUTH. DENIES PAIN, TOLERATED WELL.
--- NOTE | 2019-07-31 22:10 | NUR ---
RESIDENT MD AT BEDSIDE WITH PATIENTS DAUGHTER TO UPDATE FAMILY AND TO ANSWER ALL QUESTIONS.
--- NOTE | 2019-07-31 23:45 | NUR ---
RT AT BEDSIDE TO ASSESS PATIENT, PATIENT IS TACHYPNEIC, RESPIRATIONS IN 30's, AND SATURATIONS DROPPING IN 80'S. REINFORCED OXYMIZER AND SECURED TO PATIENTS NARES. RT CONFIRMS PATIENT IS BREATHING THROUGH MOUTH, INCREASED OXYGEN TO 8LPM. SATURATIONS BACK TO 90'S.
[2019-08-01] VITALS (14 sets, daily range): BP systolic 112–148; BP diastolic 32–82
--- NOTE | 2019-08-01 00:30 | NUR ---
MORPHINE IVP ADMINISTERED FOR PAIN 01/30. ASSISTED PATIENT WITH TURNING AND REPOSITIONING. PATIENT ABLE TO MOVE ALL EXTREMITIES AND SELF TURN WITH SOME ASSISTANCE. WILL CONTINUE TO MONITOR.
[2019-08-01] MEDS: VANCOMYCIN 1,250 MG in NACL 0.9% 250 ML IV SCH ×3 (00:48→16:49)
--- NOTE | 2019-08-01 02:30 | NUR ---
NGT TO RIGHT NARE, TAPING REINFORCED AND SECURED. RESIDUALS LESS THAN 5 ML. AIR CHECK/AUSCULTATION CONFIRMED. STARTED NEW FEEDING OF GLUCERNA 1.2 @ 80ML/HR, FWF 100ML Q4H. PATIENT TOLERATING FEEDING WELL. ASSISTED PATIENT WITH REPOSITIONING.
--- NOTE | 2019-08-01 03:20 | NUR ---
PATIENT IS LYING IN BED WITH EYES CLOSED, CONTINUES TO MAKE LOUD MOANING/GRUNTING SOUNDS. RESPIRATIONS STILL IN 30's, ALL OTHER VITALS WITHIN NORMAL LIMITS. PATIENT IS GRIMACING AND APPEARS RESTLESS AND IRRITABLE. WILL ADMINISTER MORPHINE IVP.
[2019-08-01] MEDS: MORPHINE SULFATE 2 MG/ML SYR IVP PRN (03:23)
[2019-08-01] MEDS: MEROPENEM 1,000 MG in NACL 0.9% 100 ML IV SCH ×3 (05:20→20:30)
--- NOTE | 2019-08-01 05:50 | NUR ---
RT DECREASED OXYMIZER TO 6LPM, PATIENTS SATURATIONS 95%. BREATHING IS TACHYPNEIC, IN 30's, CHEST RISE AND FALL. ALL OTHER VITALS STABLE. PATIENT RESTING CALMLY, QUIET, FLACC 0. CALL LIGHT WITHIN REACH.
[2019-08-01] MEDS ORDERED: MORPHINE SULFATE 2 MG/ML SYR IVP PRN (06:20)
[2019-08-01 06:24] LABS: HEMOGLOBIN 7.2 g/dL (12.0-18.0); MEAN CORPUSCULAR HEMOGLOBIN 31 pg (27-31); MEAN CORPUSCULAR HGB CONC 33 g/dL (33-37); MEAN CORPUSCULAR VOLUME 93.7 fL (80-94); RED BLOOD CELL COUNT(AUTO) 2.35 MIL/uL (4.20-6.10)
[2019-08-01 06:50] LABS: PROTHROMBIN TIME 10.9 secs (10.8-13.4)
[2019-08-01 06:59] LABS: CREATININE 0.8 mg/dL (0.7-1.3); POTASSIUM 4.1 mmol/L (3.5-5.1)
[2019-08-01] MEDS: ALBUTEROL SULFATE/IPRATROPIU 3 ML SOL IH SCH ×3 (07:10→19:58)
[2019-08-01 07:11] LABS: MAGNESIUM 2.3 mg/dL (1.8-2.4); PHOSPHORUS 3.9 mg/dL (2.5-4.9)
[2019-08-01 07:21] LABS: PLATELET COUNT (AUTO) 15 K/uL (140-450); WHITE BLOOD COUNT (AUTO) 1.3 K/uL (4.8-10.8)
[2019-08-01 07:23] LABS: LYMPHOCYTES % (MANUAL) 42 % (20-46); MONOCYTES % (MANUAL) 5 % (5-12)
[2019-08-01] MEDS: BLOOD GLUCOSE MONITORING 1 DEV DEV FS SCH ×4 (07:28→20:31)
--- NOTE | 2019-08-01 07:28 | NUR ---
BEDSIDE REPORT RECEIVED FROM TRAUMA COORDINATOR NURSE, PT RESTING WITH EYES CLOSED, PT AROUSES TO VOICE, O X2, RESP EVEN UNLABORED, RR 28-30, O2SAT 96% AT 6L OXYMIZER, SKIN WARM DRY COLOR WNL, VITALS STABLE ON MONITOR, NSR AT THIS TIME, NGT FEEDING ONGOING, BREATH SOUNDS COARSE RHONCHI, DIMINISHED ON LEFT LOWER LOBE, ABD SOFT NON DISTENDED, CHAN DRAINING DARK URINE, POC REVIEWED, ALL SAFETY MEASURES IN PLACE, WILL CONTINUE TO MONITOR.
[2019-08-01 07:45] LABS: ANION GAP 7.5 (8-16); CARBON DIOXIDE 31.6 mmol/L (21-32)
--- NOTE | 2019-08-01 07:55 | NUR ---
PHYSICAL THERAPIST MARLO AT BEDSIDE
--- NOTE | 2019-08-01 08:05 | NUR ---
DR BLISS AND MEDICAL TEAM AT BEDSIDE, INFORMED OF PT'S REPEATED REQUEST TO START PO INTAKE, PT TO REMAIN STRICTLY NPO AT THIS TIME.
[2019-08-01] MEDS: NACL 0.45% 1,000 ML IV SCH ×2 (08:20→12:35)
--- NOTE | 2019-08-01 08:33 | NUR ---
DR QUEEN AT BEDSIDE FOR EVAL, 12L EKG FROM YESTERDAY SHOWN TO
[2019-08-01] MEDS: PANTOPRAZOLE 40 MG INJ VIAL IVP SCH (08:59)
[2019-08-01] MEDS: LACTOBACILLUS RHAMNOSUS GG 1 EACH CAP PO SCH (08:59)
[2019-08-01] MEDS: THIAMINE 100 MG TAB PO SCH (08:59)
[2019-08-01] MEDS: FOLIC ACID 1 MG TAB PO SCH (08:59)
[2019-08-01] MEDS: DOCUSATE SODIUM 100 MG GELCAP PO SCH ×2 (09:00→20:30)
[2019-08-01] MEDS: AMIODARONE 200 MG TAB PO SCH ×2 (09:00→20:31)
[2019-08-01] MEDS: QUEtiapine FUMARATE 100 MG TAB PO SCH ×2 (09:00→20:30)
[2019-08-01] MEDS: MULTIVITAMIN 1 TAB PO SCH (09:00)
--- NOTE | 2019-08-01 10:02 | NUR ---
DR TEE AT BEDSIDE
--- NOTE | 2019-08-01 11:45 | NUR ---
RADIOLOGY AT BEDSIDE FOR CXR
[2019-08-01 11:50] LABS: IMMUNOGLOBULIN G 2390 mg/dL (700 - 1600)
--- NOTE | 2019-08-01 12:30 | NUR ---
PT RESTING WITH EYES CLOSED, AROUSES WITH TOUCH, FALLS RIGHT BACK TO SLEEP, VITALS STABLE, NSR ON MONITOR, 4L OXYMIZER [id number]%, RR 30, REPOSITIONED, NGT FEED ONGOING, WILL CONTINUE TO MONTOR.
--- NOTE | 2019-08-01 12:42 | NUR ---
RT AT BEDSIDE FOR ABD DRAW Addendum: 08/01/19 at 1523 by Quiana Strong RN JULES DIAS
--- NOTE | 2019-08-01 12:43 | NUR ---
08/01/19 RD FOLLOW UP COMPLETED PLEASE REFER TO NUTRITION ASSESSMENT UNDER CARE ACTIVITY FOR ESTIMATED NUTRITIONAL NEEDS. 1. RECOMMEND GLUCERNA 1.2 @ 65 ML/HR WITH PROSOURCE BID -THIS WILL PROVIDE 1560 ML OF VOLUME, 1992 KCAL AND 123 GM OF PROTEIN 2. CONTINUE FREE WATER FLUSH OF 100 ML Q4H 3. IF/WHEN PATIENT IS MEDICALLY STABLE CONSIDER A SWALLOW EVALUATION TO ADVANCE TO PO DIET 4. RD TO FOLLOW-UP 2-3 DAYS, HIGH RISK TANNA CHRISTENSEN RD
--- NOTE | 2019-08-01 14:50 | NUR ---
SCREEN FOR LOW SIMA SCALE AT RISK, CONTINUE TO FOLLOW PRESSURE ULCER PREVENTION INTERVENTIONS. -TURN AND REPOSITION PATIENT Q 2H -ASSESS AND MONITOR SKIN CONDITION DURING POSITION CHANGE -OFFLOAD BILATERAL HEELS BY PLACING PILLOWS UNDER CALVES AT ALL TIMES, UNLESS OTHERWISE CONTRAINDICATED -PRESSURE REDISTRIBUTION BY PLACING PILLOWS AND OFFLOADING SACRALCOCCYX -KEEP SKIN CLEAN AND DRY AT ALL TIMES.
--- NOTE | 2019-08-01 14:55 | NUR ---
DR TEE AT BEDSIDE, CALLED RT TO PLACE PATIENT ON BIPAP FOR 2 HRS.
--- NOTE | 2019-08-01 15:47 | NUR ---
PLACED PT ON BIPAP WITH SETTINGS CHARTED WILL LEAVE PT ON ABOUT [address] GAN
--- NOTE | 2019-08-01 16:15 | NUR ---
PT RESTING QUIETLY WITH EYES CLOSED, ON BIPAP 28%FIO2, RR REMAINS HIGH AT 34, O2SAT 100%, NSR ON MONITOR, AROUSES TO VOICE, FOLLOWS COMMANDS, GOES BACK TO SLEEP, FINGER STICK GLUCOSE 123, NO INSULIN NEEDED.
--- NOTE | 2019-08-01 17:30 | NUR ---
REMOVED PT FROM BIPAP AND PLACED ON 6LPM OXYMIZER
--- NOTE | 2019-08-01 17:51 | NUR ---
PT TAKEN OFF OF BIPAP, PLACED BACK ON OXMIZER BY RT, NGT FEED RESUMED AT 65ML/HR PER ORDER.
--- NOTE | 2019-08-01 18:30 | NUR ---
DAUGHTER ART AT BEDSIDE, PT AWAKE, TALKING TO DAUGHTER, PT KEEP REQUESTING FOR ICE CHIPS OR DRINKS, PT EDUCATED ON NPO, MOUTHCARE DONE, IVF INFUSING WELL, 20G RWRIST SITE WNL, NGT FEED ONGOING, CHAN DRAINING TO GRAVITY, NSR ON MONITOR, ALL SAFETY MEASURES IN PLACE.
--- NOTE | 2019-08-01 19:15 | NUR ---
BEDSIDE REPORT GIVEN TO FARM FIELD MANAGER NURSE, PT IN STABLE CONDITION.
--- NOTE | 2019-08-01 19:30 | NUR ---
RECEIVED REPORT FROM MORNING RN, MICKEY, FOR CONTINUITY OF CARE. VS STABLE AT THIS TIME. AFEBRILE. FLACC 0. PT DENIES PAIN AT THIS TIME. ABLE TO MAKE SIMPLE NEEDS KNOWN. CAN FOLLOW SIMPLE COMMANDS. PT ON OXIMIZER AT 6L/MIN. RESPIRATIONS EVEN AND UNLABORED. CHEST RISE SYMMETRIC. PT DOES NOT APPEAR TO BE EXPERIENCING ANY DIFFICULTY BREATHING. LUNG SOUNDS RHONCHI. S1+S2 HEARD. SR ON MONITOR. PULSES PALPABLE IN ALL EXTREMITIES. ABDOMEN ROUND, SOFT AND NONDISTENDED. NGT TO RIGHT NARES. PT HAS GLUCERNA 1.2 AT 65ML/HR. NO RESIDUAL ASPIRATED AT THIS TIME. NO BM NOTED. PT HAS PERIPHERAL IV ACCESS ON RIGHT HAND 205. PT HAS 0.45% NS RUNNING AT 70ML/HR. LINE IS PATENT, INTACT AND SYMPTOMATIC. PT HAS CHAN CATHETER IN PLACE. DRAINING CLEAR AND DARK GRISELDA URINE. ALL SAFETY PRECAUTIONS ARE IN PLACE.
--- NOTE | 2019-08-01 19:45 | NUR ---
PT HAD ONE BM. PAUSED FEEDING. PT CLEANED. BM WAS MODERATE IN AMOUNT, BROWN IN COLOR AND PASTE IN CONSISTENCY. PT TOLERATED BEING TURNED AND REPOSITIONED. ORAL CARE PROVIDED TO PT. RESUMED TUBE FEEDING. ALL SAFETY PRECAUTIONS ARE IN PLACE.
--- NOTE | 2019-08-01 20:20 | NUR ---
PT'S DAUGHTER, ART, AT BEDSIDE. ACCORDING TO HER, SHE HAS A LIST OF PEOPLE THAT ARE TO BE ALLOWED TO COME VISIT TOMORROW, MONDAY. PER ART, CONTACT HER FIRST BEFORE THE PT'S .
[2019-08-02] VITALS (12 sets, daily range): BP systolic 118–157; BP diastolic 53–80
[2019-08-02] MEDS: VANCOMYCIN 1,250 MG in NACL 0.9% 250 ML IV SCH ×3 (00:15→16:48)
--- NOTE | 2019-08-02 02:17 | NUR ---
NO CHANGE IN PT'S CONDITION AT THIS TIME. VS STABLE. RESPIRATIONS EVEN AND UNLABORED. PT EYES ARE CLOSED. AROUSABLE TO NAME. ALL SAFETY PRECAUTIONS REMAINS IN PLACE. WILL CONTINUE TO MONITOR.
--- NOTE | 2019-08-02 03:03 | NUR ---
RECEIVED A CALL FROM PT'S , RAMU. UPDATED HER REGARDING PT'S CONDITION. PER RAMU, SHE WILL COME IN THE UNIT THIS MORNING TO VISIT.
--- NOTE | 2019-08-02 03:30 | NUR ---
NGT NOTED TO BE OUT. PT UNAWARE THAT NGT WAS PULLED OUT. DR. RAIN AWARE AND CLARIFIED IF HE STILL WANTS NGT TO BE PUT BACK IN. PER DR. RAIN RE-INSERT NGT FOR PT CANNOT HAVE ANYTHING PO PER DR. GAN.
--- NOTE | 2019-08-02 04:30 | NUR ---
MORNING CARE PROVIDED TO PT. ABLE TO ASSIST IN TURNING AND REPOSITIONING. PT HAD BM BUT SMEAR ONLY. PT REPOSITIONED.
[2019-08-02] MEDS: MEROPENEM 1,000 MG in NACL 0.9% 100 ML IV SCH ×3 (04:55→21:02)
--- NOTE | 2019-08-02 05:00 | NUR ---
ATTEMPTED TO REINSERT NGT. PT DID NO TOLERATE WELL. UPON INSERTION OF NGT, PT WAS COUGHING CONTINUOUSLY AND NOT TOLERATING WELL. NGT WAS REMOVED. ASKED PT IF NGT CAN BE INSERTED AGAIN, PT WAS ASKING TO GIVE HIM TIME TO REST FIRST. WILL INFORM DR. RAIN
--- NOTE | 2019-08-02 05:08 | NUR ---
RECEIVED A CALL FROM DR. RAIN. INFORMED HIM THAT NGT WAS INSERTED BUT PT WAS CONTINUOUSLY COUGHING. PT WAS NOT TOLERATING WELL. NO NEW ORDERS RECEIVED. WILL ATTEMPT TO RE-INSERT.
[2019-08-02 06:09] LABS: ANION GAP 7.6 (8-16); CARBON DIOXIDE 35.4 mmol/L (21-32); CREATININE 0.8 mg/dL (0.7-1.3)
[2019-08-02 06:14] LABS: MAGNESIUM 2.2 mg/dL (1.8-2.4)
[2019-08-02 06:26] LABS: MEAN CORPUSCULAR HEMOGLOBIN 31 pg (27-31); MEAN CORPUSCULAR HGB CONC 33 g/dL (33-37); MEAN CORPUSCULAR VOLUME 93.8 fL (80-94); RED BLOOD CELL COUNT(AUTO) 2.24 MIL/uL (4.20-6.10); RED CELL DISTRIBUTION WIDTH 15.8 % (11.6-13.7)
--- NOTE | 2019-08-02 06:30 | NUR ---
ATTEMPTED TO INSERT NGT AT THIS TIME BUT PT REFUSING AND STATES THAT HE WANTED TO REST FOR NOW. WILL ATTEMPT AGAIN.
[2019-08-02] MEDS: BLOOD GLUCOSE MONITORING 1 DEV DEV FS SCH ×4 (06:46→21:09)
--- NOTE | 2019-08-02 07:10 | NUR ---
RECEIVED REPORT FROM GLASSWARE FINISHER RNLINN. PT IS AAOX3. PT DENIES PAIN AT THIS TIME. NO S/S OF DISTRESS ON 4L O2 OXYMIZER. ABLE TO FOLLOW SIMPLE COMMANDS. RESPIRATIONS EVEN AND UNLABORED. LUNG SOUNDS RHONCHI. DRY COUGH OCCASIONALLY. SR ON MONITOR. PULSES PALPABLE IN ALL EXTREMITIES. ABDOMEN SOFT AND NONDISTENDED. PT PULLED OUT HIS NGT LAST NIGHT, REFUSED TO HAVE IT INSERTED BACK AT THIS TIME. MADE PT AWARE THAT WE GIVE HIM NUTRIENTS AND MEDS BY NGT. PT IS AWARE OF THAT BUT HE WANTS TO TAKE THEM BY MOUTH. PT C/O DRY MOUTH. PROVIDED PT WITH ORAL CARE. PT HAS PERIPHERAL IV ACCESS ON RIGHT HAND 20G, RUNNING 1/2 NS AT 70ML/HR, INTACT AND SYMPTOMATIC. CHAN CATHETER IN DRAINING CLEAR GRISELDA URINE. BED ALARM ON, BED LOCKED IN LOWEST POSITION, HOB 30DEG, FALL PRECAUTIONS ARE IN PLACE. NEUTROPENIC PRECAUTIONS ENFORCED.
[2019-08-02] MEDS: ALBUTEROL SULFATE/IPRATROPIU 3 ML SOL IH SCH ×3 (07:45→20:09)
--- NOTE | 2019-08-02 07:45 | NUR ---
BM X1, BROWN SOFT STOOL. CLEANED PT. PT WAS ABLE TO HELP WITH TURNING. PROVIDED PT WITH CHAN CARE AND MEMO CARE.
--- NOTE | 2019-08-02 08:15 | NUR ---
DR BLISS AND RESIDENTS ROUNDING AND SEEN PT.
[2019-08-02 08:21] LABS: HEMOGLOBIN 6.9 g/dL (12.0-18.0); PLATELET COUNT (AUTO) 18 K/uL (140-450); WHITE BLOOD COUNT (AUTO) 1.7 K/uL (4.8-10.8)
[2019-08-02 08:22] LABS: LYMPHOCYTES % (MANUAL) 44 % (20-46); MONOCYTES % (MANUAL) 6 % (5-12)
--- NOTE | 2019-08-02 08:30 | NUR ---
DR GAN CAME AND ASSESSED PT. DR GAN ORDERED TO CHANGE OXYMIZER TO NC. PLACED PT ON NC 3L. DR GAN FED PT A FEW ICE CHIPS AND ORDERED TO HAVE OFFICIAL SWALLOW EVALUATION.
--- NOTE | 2019-08-02 08:50 | NUR ---
CALLED PHYSICAL THERAPIST [phone], NO ONE ANSWERING. Addendum: 08/02/19 at 1041 by Lucio Paredes RN FOR [facility]
[2019-08-02] MEDS: MULTIVITAMIN 1 TAB PO SCH (09:00)
[2019-08-02] MEDS: DOCUSATE SODIUM 100 MG GELCAP PO SCH ×2 (09:00→21:01)
[2019-08-02] MEDS: THIAMINE 100 MG TAB PO SCH (09:00)
[2019-08-02] MEDS: LACTOBACILLUS RHAMNOSUS GG 1 EACH CAP PO SCH (09:00)
[2019-08-02] MEDS: QUEtiapine FUMARATE 100 MG TAB PO SCH ×2 (09:00→21:02)
[2019-08-02] MEDS: FOLIC ACID 1 MG TAB PO SCH (09:00)
[2019-08-02] MEDS: AMIODARONE 200 MG TAB PO SCH ×2 (09:00→21:02)
[2019-08-02] MEDS: PANTOPRAZOLE 40 MG INJ VIAL IVP SCH (09:02)
--- NOTE | 2019-08-02 09:15 | NUR ---
ASKED DR REED IF SHE WANTS TO GIVE PT THE PO MEDS. DR REED SAID NO. ASKED DR REED IF SHE WANTS TO CONVERT PO AMIODARONE TO IV, SHE SAID NO AND SHE JUST WANTS TO WAIT FOR THE ST EVAL.
--- NOTE | 2019-08-02 10:05 | NUR ---
PT O2 SAT 90%, INCREASED O2 TO NC 4L AND ADDED HUMIDIFIER. O2 IMPROVED TO 94%
--- NOTE | 2019-08-02 10:10 | NUR ---
DR STEFANIE FLORES IS HERE, HE IS AWARE OF THE NA LEVEL TRENDING UP.
--- NOTE | 2019-08-02 10:30 | NUR ---
CALLED PHYSICAL THERAPIST [phone], NO ONE ANSWERING, LEFT A MESSAGE. ASKED TO CALL BACK REGARDING ST HE.
--- NOTE | 2019-08-02 10:40 | NUR ---
CALLED CAGE CASHIER PRINCESS AND MADE HER AWARE OF THE ST EVAL ORDER. PRINCESS SAID WILL TRY TO CONTACT PHYSICAL THERAPIST AND LET THEM KNOW.
--- NOTE | 2019-08-02 12:09 | NUR ---
RECEIVED A CALL FROM ANAYNH RADIOLOGIST FROM [facility]. MEACHAM SAID PT WILL BE TRANSFERRED TO THEIR FACILITY FOR BONE MARROW ASPIRATION ON MONDAY AROUND 10-11AM. PER GAGANDEEP, PT MIGHT NEED PLT TRANSFUSION ON MONDAY NIGHT. WILL ENDORSE TO THE RN FOR NEXT SHIFT.
[2019-08-02] MEDS: DEXTROSE 5% 1,000 ML IV SCH (12:14)
--- NOTE | 2019-08-02 13:44 | NUR ---
*S.T. BEDSIDE SWALLOW EVAL COMPLETED* See report for details. Pt presents with adequate oropharyngeal swallow function with no overt s/s aspiration. Pt, however, demo'd poor trunk control and B/L UE weakness/discoordination, making it difficult for pt to self-feed. Recommend: 1) Advance to mechanical soft chopped diet (soley for ease of self-feeding, not due to a clinical dysphagia); thin liquids okay. Straws okay. 2) P.O. meds okay, one at a time. 3) Nsg to assist w/ positioning pt and tray set up to promote independent self-feeding. Pt does not present w/ a clinical dysphagia and therefore further swallow tx is not warranted. DC to [facility] care. D/w pt and daughter at [facility] station results/recommendations. Also endorsed to RNs Giana Valdes and Gladis. Time [id number]
--- NOTE | 2019-08-02 15:08 | NUR ---
PT USED CALL LIGHT, PROVIDED PT WITH BED GROSS. PT HAD A SMALL BROWN BMX1. PT MESSED UP THE BED, CHANGED ALL BED LINENS. PT WAS ABLE TO HELP WITH TURNING.
--- NOTE | 2019-08-02 19:10 | NUR ---
PATIENT ORIENTED TO CALL LIGHT. ALERTS RN's THAT BEDPAN IS NEEDED. PATIENT HAD A SMALL BOWEL MOVEMENT, BROWN AND SEMIFORMED. PROVIDED SKIN CARE AND SKIN CLEAN AND DRY. INTACT. ASSISTED WITH POSITIONING. PATIENT ABLE TO PULL SELF UP. REQUESTING A SMALL JUICE, ORIENTED TO ASPIRATION PRECAUTIONS AND VERBALIZES UNDERSTANDING. ALL NEEDS MET AT THIS TIME.
--- NOTE | 2019-08-02 19:30 | NUR ---
RECEIVED REPORT FROM DAYSHIFT NURSE AT PATIENTS BEDSIDE. PATIENT JUST CLEANED, SITTING UP, AWAKE AND ALERT, MAKES NEEDS KNOWN AND FOLLOWS ALL COMMANDS. ON NASAL CANNULA 4LPM. SATURATIONS 97%, RESPIRATIONS 18, LUNGS SOUNDS ARE WITH SOME CRACKLES/RHONCHI. BREATHING IS UNLABORED, SMALL COUGH NOTED, NONPRODUCTIVE. CONNECTED TO DROP FORGER HELPER, S1S2 HEARD, SR ON MONITOR. BP- STABLE. SKIN IS WARM AND DRY. ABDOMEN IS LARGE, SOFT AND NONTENDER WITH ACTIVE BOWEL SOUNDS. RIGHT HAND 20G PERIPHERAL IV IN PLACE, FLUSHED AND PATENT. WITHOUT SYMPTOMS, INFUSING D5 @ 100ML/HR.CHAN CATHETER IN PLACE WITH CLEAR GRISELDA URINE. PATIENT UPDATED ON CAREPLAN, SIDERAILS UPx3, BELONGINGS WITHIN REACH. SAFETY ALARMS IN PLACE. WILL CONTINUE TO MONITOR.
--- NOTE | 2019-08-02 20:23 | NUR ---
RT AT BED SIDE FOR BREATHING TREATMENT. LUNG SOUNDS ARE MORE CLEAR. 2 VISITORS AT BEDSIDE, ORIENTED TO NEUTROPENIC PRECAUTIONS.
--- NOTE | 2019-08-02 21:31 | NUR ---
PT REQUESTING PUDDING. PRIMARY NURSE NOTIFIED. PUDDING PROVIDED TO PT.
--- NOTE | 2019-08-02 23:40 | NUR ---
PROVIDED PATIENT WITH ORAL CARE. MODERATE ASSISTANCE NEEDED. BASIC FACIAL HYGIENE PROVIDED. SMALL COUGH NOTED, NONPRODUCTIVE. ALL NEEDS MET. PT STABLE
[2019-08-03] VITALS (12 sets, daily range): BP systolic 121–154; BP diastolic 62–84
[2019-08-03] MEDS: VANCOMYCIN 1,250 MG in NACL 0.9% 250 ML IV SCH ×3 (00:28→16:54)
--- NOTE | 2019-08-03 01:20 | NUR ---
BEDPAN GIVEN TO PATIENT. MODERATE SIZED BOWEL MOVEMENT NOTED, BROWN AND SOFT. PROVIDED SKIN CARE AND MEMO CARE. TURNED AND REPOSITIONED PATIENT. REINFORCED NASAL CANNULA. DENIES PAIN. PATIENT STABLE, ALERT AND ORIENTED. LYING IN BED WATCHING TV.
--- NOTE | 2019-08-03 03:10 | NUR ---
PATIENT RESTING WELL IN BED, EYES CLOSED. NASAL CANNULA IN PLACE 4LPM. ALL VITALS WITHIN NORMAL RANGE. PATIENT SELF TURNS IN BED, SIDERAILS UP x3, CALL LIGHT WITHIN REACH . PATIENT REINFORCES NASAL CANNULA WHEN NEEDED. FLACC 0
[2019-08-03] MEDS: MEROPENEM 1,000 MG in NACL 0.9% 100 ML IV SCH ×3 (05:09→20:39)
[2019-08-03 05:13] LABS: LYMPHOCYTES # (AUTO) 0.6 K/uL (2.0-11.5); MEAN CORPUSCULAR HGB CONC 33 g/dL (33-37); RED BLOOD CELL COUNT(AUTO) 2.16 MIL/uL (4.20-6.10)
--- NOTE | 2019-08-03 05:20 | NUR ---
SPONGE BATH ORAL CARE AND CHAN CARE PROVIDED. PATIENT NEEDS MINIMAL ASSISTANCE. ABLE TO SELF CLEAN. ENCOURAGE PATIENT TO BE MORE INDEPENDENT. VERBALIZES UNDERSTANDING. CHAN CATHETER DRAINING AT BEDSIDE, NASAL CANNULA IN PLACE AND RIGHT WRIST PERIPHERAL IV INFUSING FLUIDS. CALL LIGHT WITHIN REACH, DENIES PAIN.
[2019-08-03 05:29] LABS: ANION GAP 5.2 (8-16); CARBON DIOXIDE 34.3 mmol/L (21-32); CREATININE 0.8 mg/dL (0.7-1.3); POTASSIUM 3.5 mmol/L (3.5-5.1)
[2019-08-03 05:34] LABS: BASOPHILS % (AUTO) 0.3 % (0.0-2.0); EOSINOPHILS % (AUTO) 0.2 % (0.0-4.0); HEMATOCRIT 20.1 % (36-52); LYMPHOCYTES % (AUTO) 37.6 % (20.5-51.1); MEAN CORPUSCULAR HEMOGLOBIN 31 pg (27-31); MEAN CORPUSCULAR VOLUME 93.1 fL (80-94); MONOCYTES # (AUTO) 0.1 K/uL (0.8-1.0); MONOCYTES % (AUTO) 4.6 % (1.7-9.3); NEUTROPHILS # (AUTO) 0.8 K/uL (1.8-7.7); NEUTROPHILS % (AUTO) 57.3 % (42.2-75.2); PHOSPHORUS 3.7 mg/dL (2.5-4.9); RED CELL DISTRIBUTION WIDTH 15.8 % (11.6-13.7)
[2019-08-03] MEDS: DEXTROSE 5% 1,000 ML IV SCH ×2 (06:23→08:00)
[2019-08-03 06:27] LABS: HEMOGLOBIN 6.6 g/dL (12.0-18.0); WHITE BLOOD COUNT (AUTO) 1.5 K/uL (4.8-10.8)
[2019-08-03 06:33] LABS: PLATELET COUNT (AUTO) 27 K/uL (140-450)
[2019-08-03] MEDS: ALBUTEROL SULFATE/IPRATROPIU 3 ML SOL IH SCH ×3 (07:13→18:52)
--- NOTE | 2019-08-03 07:15 | NUR ---
RECEIVED REPORT FROM CAR STEREO INSTALLER LINN GARCIA. PT IS AAOX4. DENIES PAIN AT THIS TIME. NO S/S OF DISTRESS ON 4L O2 VIA NC. ABLE TO FOLLOW SIMPLE COMMANDS. RESPIRATIONS EVEN AND UNLABORED. LUNG SOUNDS CLEAR, DIMINISHED. DRY COUGH OCCASIONALLY. SR ON MONITOR. ABDOMEN SOFT AND NONDISTENDED. PT HAS PERIPHERAL IV ACCESS ON RIGHT HAND 20G, RUNNING D5W AT 70ML/HR, INTACT AND SYMPTOMATIC. CHAN CATHETER IN DRAINING CLEAR GRISELDA URINE. BED ALARM ON, BED LOCKED IN LOWEST POSITION, HOB 40DEG, FALL PRECAUTIONS ARE IN PLACE. NEUTROPENIC PRECAUTIONS ENFORCED Addendum: 08/03/19 at 1452 by Lucio Paredes RN ON 4L O2 VIA NC WITH HUMIDIFIER
[2019-08-03] MEDS: BLOOD GLUCOSE MONITORING 1 DEV DEV FS SCH ×4 (08:00→21:00)
[2019-08-03] MEDS: AMIODARONE 200 MG TAB PO SCH ×2 (08:11→20:40)
[2019-08-03] MEDS: MULTIVITAMIN 1 TAB PO SCH (08:11)
[2019-08-03] MEDS: LACTOBACILLUS RHAMNOSUS GG 1 EACH CAP PO SCH (08:11)
[2019-08-03] MEDS: THIAMINE 100 MG TAB PO SCH (08:11)
[2019-08-03] MEDS: QUEtiapine FUMARATE 100 MG TAB PO SCH ×2 (08:12→20:40)
[2019-08-03] MEDS: PANTOPRAZOLE 40 MG INJ VIAL IVP SCH (08:12)
[2019-08-03] MEDS: FOLIC ACID 1 MG TAB PO SCH (08:12)
[2019-08-03] MEDS: DOCUSATE SODIUM 100 MG GELCAP PO SCH ×2 (08:15→20:40)
--- NOTE | 2019-08-03 08:30 | NUR ---
PT HAD BREAKFAST, PROVIDED PT WITH ORAL CARE.
--- NOTE | 2019-08-03 09:45 | NUR ---
PT C/O ANXIETY. PT'S DAUGHTER ART IS HERE, ASKED ART TO DISTRACT PT. ART PROVIDED PT WITH BOOK AND RUBTORRI'S CUBE. CALLED DR GARCIA, MADE DR GARCIA AWARE THAT PT HAS ANXIETY AND ART WANTS TO TALK TO HIM.
--- NOTE | 2019-08-03 09:50 | NUR ---
DAUGHTER ART AT THE BESIDE. PT IS TALKING ON THE PHONE. NO S/S OF DISTRESS.
--- NOTE | 2019-08-03 10:25 | NUR ---
DR GARCIA CAME BY, HOWEVER ART WAS NOT IN ICU. PROVIDED DR GARCIA WITH ART'S PHONE #. DR GARCIA SAID HE WILL CALL HER.
[2019-08-03] MEDS: hydrOXYzine PAMOATE 25 MG CAP PO PRN ×2 (11:16→19:22)
--- NOTE | 2019-08-03 12:30 | NUR ---
PT HAD LUNCH, STANDBY ASSISTANCE PROVIDED.
--- NOTE | 2019-08-03 13:10 | NUR ---
PT C/O ANXIETY. HELPED PT SITING UP AT THE EDGE OF BED. PT IS CALM RIGHT NOW AND PLAYING GAMES ON HIS PHONE.
--- NOTE | 2019-08-03 13:45 | NUR ---
BLOOD TRANSFUSION COMPLETED. MADE DR GARCIA AWARE.
--- NOTE | 2019-08-03 14:02 | NUR ---
PT SLEEPING AT THIS TIME. NO S/S OF DISTRESS.
[2019-08-03] MEDS: DEXT 5% / NACL 0.45% 1,000 ML IV SCH (14:32)
--- NOTE | 2019-08-03 15:29 | NUR ---
08/03/19 RD FOLLOW UP COMPLETED PLEASE REFER TO NUTRITION ASSESSMENT UNDER CARE ACTIVITY FOR ESTIMATED NUTRITIONAL NEEDS. 1. CONTINUE MECHANICAL SOFT HEPATIC DIET 2. ENCOURAGE PO INTAKE 3. RD TO FOLLOW-UP 2-3 DAYS, HIGH RISK VICKY PANTOJA, RD
--- NOTE | 2019-08-03 15:30 | NUR ---
PT SLEEPING, NO S/S OF DISTRESS.
--- NOTE | 2019-08-03 16:30 | NUR ---
HELPED PT WITH BED GROSS. HELPED PT WITH ROM EXERCISE AND DANGLER FEET AT EDGE OF THE BED.
--- NOTE | 2019-08-03 18:10 | NUR ---
DR MIGUEL SEEN PT.
[2019-08-03 19:12] LABS: BASOPHILS % (AUTO) 0.5 % (0.0-2.0); HEMATOCRIT 24.6 % (36-52); HEMOGLOBIN 8.2 g/dL (12.0-18.0); LYMPHOCYTES # (AUTO) 0.6 K/uL (2.0-11.5); LYMPHOCYTES % (AUTO) 29.6 % (20.5-51.1); MEAN CORPUSCULAR HEMOGLOBIN 30 pg (27-31); MEAN CORPUSCULAR HGB CONC 33 g/dL (33-37); MEAN CORPUSCULAR VOLUME 91.6 fL (80-94); MONOCYTES # (AUTO) 0.1 K/uL (0.8-1.0); MONOCYTES % (AUTO) 3.6 % (1.7-9.3); NEUTROPHILS # (AUTO) 1.4 K/uL (1.8-7.7); NEUTROPHILS % (AUTO) 66.3 % (42.2-75.2); PLATELET COUNT (AUTO) 33 K/uL (140-450); RED BLOOD CELL COUNT(AUTO) 2.69 MIL/uL (4.20-6.10); RED CELL DISTRIBUTION WIDTH 15.6 % (11.6-13.7); WHITE BLOOD COUNT (AUTO) 2.1 K/uL (4.8-10.8)
--- NOTE | 2019-08-03 19:20 | NUR ---
RECEIVED REPORT FROM THEO GARCIA. PT AWAKE AND ALERT. A&O X4. ABLE TO MAKE NEEDS KNOWN. SITTING UP IN BED. PT ON NC 4LPM, LUNG SOUNDS CLEAR, DIMINISHED. SINUS RHYTHM ON MONITOR. HEART SOUNDS HEARS S1&S2. ABDOMEN IS SOFT AND ROUND, BOWEL SOUNDS ACTIVE. SKIN IS INTACT, WARM AND DRY. CAP REFILL LESS THAN 2 SECONDS. DIET MECHANICAL SOFT. DENIES PAIN. CHAN CATHETER IN PLACE. CALL LIGHT WITHIN IN REACH. SAFETY IN PRECAUTIONS IN PLACE. WILL CONTINUE TO MONITOR. Addendum: 08/03/19 at 2027 by Randy Rodríguez RN PT NC 3 LPM
--- NOTE | 2019-08-03 19:22 | NUR ---
PT REQUESTING FOR ANXIETY MEDICATION. 50MG OF PRN VISTARIL GIVEN. WILL CONTINUE TO MONITOR.
--- NOTE | 2019-08-03 20:40 | NUR ---
MARTIR FORREST IVJAMIE, WILL CONTINUE TO MONITOR.
--- NOTE | 2019-08-03 20:59 | NUR ---
BLOOD SUGAR 147, NO INSULIN GIVEN.
--- NOTE | 2019-08-03 21:00 | NUR ---
PT REFUSED COLACE, NOT GIVEN. AMIODARONE AND SEROQUEL GIVEN ORDERED. WILL CONTINUE TO MONITOR.
--- NOTE | 2019-08-03 23:15 | NUR ---
PT IS RESTLESS. PROVIDED MAGAZINES AND CROSSWORD PUZZLES. PT IS CALM, WHILE DOING CROSSWORD PUZZLES.
[2019-08-04] VITALS (12 sets, daily range): BP systolic 121–153; BP diastolic 66–85
[2019-08-04] MEDS: VANCOMYCIN 1,250 MG in NACL 0.9% 250 ML IV SCH ×3 (00:29→16:17)
--- NOTE | 2019-08-04 01:17 | NUR ---
PT AWAKE, ALERT AND ORIENTED X3. PT RESTING IN BED, WATCHING TELEVISION. SAFETY PRECAUTIONS IN PLACE. WILL CONTINUE TO MONITOR.
[2019-08-04] MEDS: hydrOXYzine PAMOATE 25 MG CAP PO PRN ×3 (02:16→20:17)
--- NOTE | 2019-08-04 02:22 | NUR ---
PT IS RESTLESS. VISTARIL MEDICATION GIVEN FOR ANXIETY. WILL CONTINUE TO MONITOR.
[2019-08-04] MEDS: DEXT 5% / NACL 0.45% 1,000 ML IV SCH ×2 (02:42→16:21)
--- NOTE | 2019-08-04 04:30 | NUR ---
SPONGE BATH, MEMO CARE, AND CHAN CATHETER CARE PROVIDED. SAFETY PRECAUTIONS IN PLACE. WILL CONTINUE TO MONITOR.
[2019-08-04] MEDS: MEROPENEM 1,000 MG in NACL 0.9% 100 ML IV SCH ×3 (05:07→20:18)
[2019-08-04 06:00] LABS: ANION GAP 4.5 (8-16); CARBON DIOXIDE 32.9 mmol/L (21-32); CREATININE 0.8 mg/dL (0.7-1.3); POTASSIUM 3.4 mmol/L (3.5-5.1)
[2019-08-04 06:15] LABS: MAGNESIUM 1.8 mg/dL (1.8-2.4); PHOSPHORUS 3.4 mg/dL (2.5-4.9)
--- NOTE | 2019-08-04 06:20 | NUR ---
PT HAS EYES CLOSED, RESTING IN BED. RESPIRATIONS EVEN AND UNLABORED. NO SOB NOTED. SAFETY PRECAUTIONS IN PLACE. WILL CONTINUE TO MONITOR.
[2019-08-04] MEDS ORDERED: BENZONATATE 100 MG CAPLF PO PRN (07:00)
[2019-08-04 07:17] LABS: BASOPHILS % (AUTO) 0.2 % (0.0-2.0); EOSINOPHILS % (AUTO) 0.1 % (0.0-4.0); HEMATOCRIT 22.7 % (36-52); HEMOGLOBIN 7.4 g/dL (12.0-18.0); LYMPHOCYTES # (AUTO) 0.7 K/uL (2.0-11.5); LYMPHOCYTES % (AUTO) 33.5 % (20.5-51.1); MEAN CORPUSCULAR HEMOGLOBIN 30 pg (27-31); MEAN CORPUSCULAR HGB CONC 33 g/dL (33-37); MONOCYTES # (AUTO) 0.1 K/uL (0.8-1.0); MONOCYTES % (AUTO) 3.7 % (1.7-9.3); NEUTROPHILS # (AUTO) 1.2 K/uL (1.8-7.7); NEUTROPHILS % (AUTO) 62.5 % (42.2-75.2); PLATELET COUNT (AUTO) 37 K/uL (140-450); RED BLOOD CELL COUNT(AUTO) 2.46 MIL/uL (4.20-6.10); RED CELL DISTRIBUTION WIDTH 15.4 % (11.6-13.7)
--- NOTE | 2019-08-04 07:25 | NUR ---
REPORT GIVEN TO MEME GARCIA FOR CONTINUITY OF CARE.
[2019-08-04] MEDS: BLOOD GLUCOSE MONITORING 1 DEV DEV FS SCH ×4 (07:30→20:28)
[2019-08-04] MEDS ORDERED: POTASSIUM CHLORIDE 10 MEQ TABER PO SCH ×2 (07:30→12:57)
--- NOTE | 2019-08-04 07:50 | NUR ---
RECEIVED REPORT FROM NIGHT NURSE. PT A&O X4. BILATERAL LUNGS SOUND CLEAR. BOWEL SOUNDS ACTIVE FROM ALL 4 QUADS. IV PATENT AND ASYMPTOMATIC. DENIES ANY PAIN OR DISCOMFORT. CHAN DRAINING GRISELDA CLEAR COLOR URINE. SET UP ASSISTANCE WITH MEAL TRAY PROVIDED. ON REVERSE AND CONTACT ISOLATION PRECAUTIONS. PT PLAN IS TO BE TRANSFERRED TO [facility] FOR BONE MARROW BIOPSY ON MONDAY. PT MADE AWARE OF THE PLAN. HAO MOREL, SON IN TO SEE PT AND MADE AWARE OF THE TRANSFER PLAN. ALL SAFETY PRECAUTIONS ARE IN PLACE AND WILL CONTINUE TO MONITOR.
[2019-08-04] MEDS: ALBUTEROL SULFATE/IPRATROPIU 3 ML SOL IH SCH ×3 (08:29→21:10)
[2019-08-04] MEDS: THIAMINE 100 MG TAB PO SCH (08:45)
[2019-08-04] MEDS: MULTIVITAMIN 1 TAB PO SCH (08:45)
[2019-08-04] MEDS: LACTOBACILLUS RHAMNOSUS GG 1 EACH CAP PO SCH (08:45)
[2019-08-04] MEDS: FOLIC ACID 1 MG TAB PO SCH (08:45)
[2019-08-04] MEDS: PANTOPRAZOLE 40 MG INJ VIAL IVP SCH (08:45)
[2019-08-04] MEDS: AMIODARONE 200 MG TAB PO SCH ×2 (08:46→20:17)
[2019-08-04] MEDS: QUEtiapine FUMARATE 100 MG TAB PO SCH ×2 (08:46→20:17)
[2019-08-04] MEDS: DOCUSATE SODIUM 100 MG GELCAP PO SCH ×2 (08:49→20:17)
--- NOTE | 2019-08-04 08:58 | NUR ---
MEDICATIONS ADMINISTERED ORDERED. TOLERATED WELL. DENIES ANY PAIN OF DISCOMFORT. VS WITHOUT ACUTE DISTRESS. CONSUMED BREAKFAST 100%. REVERSE ISOLATION AND CONTACT ISOLATION PRECAUTIONS STRICTLY FOLLOWED. PT SELF REPOSITIONED HIMSELF. ALL SAFETY PRECAUTIONS ARE IN PLACE. WILL CONTINUE TO MONITOR.
--- NOTE | 2019-08-04 09:00 | NUR ---
DR. MACDONALD IN TO SEE PT. WILL FOLLOW UP WITH ANY NEW ORDERS.
--- NOTE | 2019-08-04 09:08 | NUR ---
ART, DAUGHTER IN TO SEE PT. PLAN TO TRANSFER TO [facility] TOMORROW FOR BONE MARROW AND PLATELET TRANSFUSION PLAN AND SHE IS ALL MADE AWARE AND IN AGREEMENT.
--- NOTE | 2019-08-04 11:54 | NUR ---
PT C/O BACK PAIN. REPOSITIONED FOR COMFORT BUT DID NOT RELIEVE THE PAIN. NOTIFIED. DR. GARCIA. RECEIVED NEW ORDER. WILL CARRY OUT. PT MADE AWARE.
[2019-08-04] MEDS: KETOROLAC 15 MG/ML VIAL IVP SCH ×2 (11:59→17:40)
--- NOTE | 2019-08-04 12:28 | NUR ---
[facility] CAME WITH 2 PATIENT FINANCIAL SERVICES SPECIALIST AND 1 BOOK CLEANER. REPORT GIVEN TO BOOK CLEANER WITH ALL DISCHARGE PAPER WORKS. PT HAD NO BELONGINGS TO TAKE. PT DISCHARGED TO [facility] AT THIS TIME. V/S STABLE AND NO ACUTE DISTRESS NOTED. Addendum: 08/04/19 at 1521 by Shanda Higgins RN DELETE CHARTING. WRONG RESIDENT.
--- NOTE | 2019-08-04 12:45 | NUR ---
LUNCH CONSUMED 90% WITH SET UP ASSISTANCE. DENIES PAIN AT THIS TIME. VS WITHOUT ACUTE DISTRESS. WILL CONTINUE TO MONITOR.
[2019-08-04] MEDS ORDERED: MAG SULF 2000 MG/WATER PREMIX 50 ML IV SCH (13:00)
--- NOTE | 2019-08-04 13:10 | NUR ---
DR. PEARSON IN TO SEE PT. WILL CARRY OUT NEW ORDERS.
--- NOTE | 2019-08-04 13:58 | NUR ---
PT NOTED WITH EPISODES OF NON PRODUCTIVE COUGH. TESSALON PERLES ADMINISTERED ORDERED.
--- NOTE | 2019-08-04 14:40 | NUR ---
RIGHT HAND PERIPHERAL IV REMOVED DUE TO INFILTRATION AND NEW PERIPHERAL IV SITE TO LEFT AC 20G. POSITIVE BLOOD RETURN, PATENT, ASYMPTOMATIC. PT TOLERATED WELL.
--- NOTE | 2019-08-04 17:46 | NUR ---
CONSUME 80% OF DINNER. ROUTINE TORADOL ADMINISTERED ORDERED. PT DENIES PAIN OR DISCOMFORT. EDUCATION MATERIALS PROVIDED. PT STATES UNDERSTANDING.
[2019-08-04] MEDS ORDERED: KETOROLAC 15 MG/ML VIAL IVP PRN (18:25)
--- NOTE | 2019-08-04 19:17 | NUR ---
REPORT GIVEN TO NIGHT NURSE FOR CONTINUITY OF CARE. VS WITHOUT ACUTE DISTRESS. SAFETY PRECAUTIONS ARE ALL IN PLACE.
--- NOTE | 2019-08-04 19:18 | NUR ---
RECEIVED REPORT FROM DAY SHIFT NURSE, PT A/O X4, BREATHING EVENLY AND UNLABORED, NO SIGNS OF ACUTE DISTRESS, WITH O2 AT 2L/MIN VIA NC. SKIN INTACT, ENCOURAGE TO TURN AND REPOSITION Q2H, WITH GOOD ROM ON ALL EXTREMITIES, CHAN CATHETER IN PLACE, CONTINENT OF BOWEL, NO NAUSEA AT THIS TIME. DENIES OF ANY PAIN AT THIS TIME. MAINTAIN SAFETY AND CONTACT PRECAUTIONS ORDERED. CALL LIGHT WITHIN REACH. WILL DO HOURLY ROUNDS.
--- NOTE | 2019-08-04 19:30 | NUR ---
REQUESTING BEDPAN. SMALL SOFT BROWN BOWEL MOVEMENT NOTED. PROVIDED PERINEAL AND SKIN CARE. PATIENT ABLE TO TURN LEFT AND RIGHT WITHOUT DISTRESS. BED IN LOWEST POSITION. SIDERAILS UP x3. ALL NEEDS MET AT THIS TIME.
--- NOTE | 2019-08-04 20:35 | NUR ---
phone call from lab, spoke with Carlos; he said that the platelet is here and being thawed ,platelet is A Positive and pt is O positive; called dr osuna and informed of the above; physician's call transferred to lab at this time.
--- NOTE | 2019-08-04 21:23 | NUR ---
RECEIVED PATIENT ON 2L NASAL CANNULA, PULSE OX SAT 96%. SCHEDULED BREATHING TREATMENT ADMINISTERED. TOLERATED TX WELL WITHOUT ADVERSE SIDE EFFECTS. NO ACUTE RESPIRATORY DISTRESS NOTED AT THIS TIME. WILL CONTINUE TO MONITOR. VISITORS AT BEDSIDE.
--- NOTE | 2019-08-04 22:20 | NUR ---
CONFIRMED WITH LAB, PLATELETS WILL BE READY IN 30 MINS OR SO, WILL CALL WHEN AVAILABLE FOR PICKUP.
--- NOTE | 2019-08-04 23:40 | NUR ---
OBTAINED FIRST UNIT OF PLATELET, VERIFIED AT BEDSIDE WITH YOLY Thurston RN.
--- NOTE | 2019-08-04 23:45 | NUR ---
PT STARTED ON FIRST UNIT OF PLATELETS, WILL CONTINUE TO MONITOR.
[2019-08-05] VITALS (7 sets, daily range): BP systolic 133–186; BP diastolic 67–88
--- NOTE | 2019-08-05 | NUR ---
NO ADVERSE REACTION NOTED FROM BLOOD TRANSFUSION, WILL CONTINUE TO MONITOR.
--- NOTE | 2019-08-05 00:53 | NUR ---
PATIENT IS EXPERIENCING ANXIETY AND RESTLESSNESS, STATING, "CANNOT BREATH BECAUSE I AM EVERYWHERE, I CANNOT CALM DOWN AND RELAX". PRN MEDICATIONS NOT YET DUE, MADE RESIDENT MD AWARE. RESIDENT MD WILL COME IN TO ASSESS PATIENT.
[2019-08-05] MEDS: VANCOMYCIN 1,250 MG in NACL 0.9% 250 ML IV SCH (00:56)
--- NOTE | 2019-08-05 01:00 | NUR ---
PT FINISHED FIRST UNIT OF PLATELET, NO ADVERSE REACTION NOTED. WILL CONTINUE TO MONITOR.
--- NOTE | 2019-08-05 01:05 | NUR ---
OBTAINED SECOND UNIT OF PLATELET, VERIFIED AT BEDSIDE WITH WILTON GARCIA.
--- NOTE | 2019-08-05 01:10 | NUR ---
PT STARTED ON SECOND UNIT OF PLATELET, WILL CONTINUE TO MONITOR.
--- NOTE | 2019-08-05 01:25 | NUR ---
NO ADVERSE REACTION NOTED FROM BLOOD TRANSFUSION, WILL CONTINUE TO MONITOR.
--- NOTE | 2019-08-05 01:32 | NUR ---
ORAL CARE PROVIDED, PATIENT ONLY NEEDS MINIMAL ASSISTANCE. ASSISTED WITH TURNING AND POSITIONING. PATIENT TOLERATED WELL, DENIES PAIN. SAFETY ALARMS IN PLACE, CALL LIGHT WITHIN REACH.
--- NOTE | 2019-08-05 02:15 | NUR ---
PT FINISHED SECOND UNIT OF PLATELET, NO ADVERSE REACTION NOTED. MD MADE AWARE, CBC IN AM ORDERED. CHARGE NURSE ALSO AWARE.
--- NOTE | 2019-08-05 02:53 | NUR ---
pt very agitated; trying to get up; vistaril not due at this time; phone call to dr osuna; ok to give the medication(vistaril) now. v/ hr 82; rr 24; 02sat 95% on 02nc at 2lpm.bp 153/95 Addendum: 08/05/19 at 0257 by Alie Calles RN TEMP 97.7
[2019-08-05] MEDS: hydrOXYzine PAMOATE 25 MG CAP PO PRN ×2 (02:56→22:40)
[2019-08-05] MEDS: MEROPENEM 1,000 MG in NACL 0.9% 100 ML IV SCH ×3 (04:18→20:57)
[2019-08-05 04:30] LABS: EOSINOPHILS % (AUTO) 0.1 % (0.0-4.0); MEAN CORPUSCULAR HEMOGLOBIN 30 pg (27-31); NEUTROPHILS # (AUTO) 1.7 K/uL (1.8-7.7); WHITE BLOOD COUNT (AUTO) 2.6 K/uL (4.8-10.8)
[2019-08-05 04:43] LABS: BASOPHILS % (AUTO) 0.9 % (0.0-2.0); HEMATOCRIT 23.2 % (36-52); LYMPHOCYTES # (AUTO) 0.8 K/uL (2.0-11.5); LYMPHOCYTES % (AUTO) 32.3 % (20.5-51.1); MEAN CORPUSCULAR HGB CONC 33 g/dL (33-37); MEAN CORPUSCULAR VOLUME 92.2 fL (80-94); MONOCYTES # (AUTO) 0.1 K/uL (0.8-1.0); MONOCYTES % (AUTO) 2.9 % (1.7-9.3); NEUTROPHILS % (AUTO) 63.8 % (42.2-75.2); PLATELET COUNT (AUTO) 90 K/uL (140-450); RED BLOOD CELL COUNT(AUTO) 2.52 MIL/uL (4.20-6.10)
[2019-08-05 05:05] LABS: HEMOGLOBIN 7.6 g/dL (12.0-18.0)
--- NOTE | 2019-08-05 06:02 | NUR ---
LAB RESULTS REPORTED TO RESIDENT MOSS WITH PLATELET AT 90. RECEIVED ORDER TO HOLD THIRD UNIT OF PLATELET AT THIS TIME. CONTINUE TO MONITOR.
--- NOTE | 2019-08-05 06:22 | NUR ---
NEW ORDERS RECEIVED FROM RESIDENT MP REED EXCEPT MEDS, LABS AND PACKED CELLS. NOTED AND CARRIED OUT.
[2019-08-05 06:40] LABS: ANION GAP 4.7 (8-16); CARBON DIOXIDE 33.5 mmol/L (21-32); CREATININE 0.8 mg/dL (0.7-1.3); POTASSIUM 4.2 mmol/L (3.5-5.1)
[2019-08-05 06:48] LABS: MAGNESIUM 2.1 mg/dL (1.8-2.4); PHOSPHORUS 4.1 mg/dL (2.5-4.9)
[2019-08-05] MEDS: BLOOD GLUCOSE MONITORING 1 DEV DEV FS SCH ×4 (07:01→20:58)
[2019-08-05] MEDS: ALBUTEROL SULFATE/IPRATROPIU 3 ML SOL IH SCH ×3 (07:04→20:30)
--- NOTE | 2019-08-05 07:15 | NUR ---
RECEIVED REPORT FROM OPHTHALMIC LENS INSPECTOR RNLINDSEY. PT IS AAOX4. DENIES PAIN AT THIS TIME. ON BREATHING TX WITH RT. ABLE TO FOLLOW SIMPLE COMMANDS. LUNG SOUNDS CLEAR, DIMINISHED. SR ON MONITOR. ABDOMEN SOFT AND NONDISTENDED. PT HAS PERIPHERAL IV ACCESS ON LEFT AC 20G, RUNNING D5 1/2NS AT 50ML/HR, INTACT AND SYMPTOMATIC. CHAN CATHETER IN DRAINING CLEAR SLIGHTLY GRISELDA URINE. BED ALARM ON, BED LOCKED IN LOWEST POSITION, HOB 40DEG, FALL PRECAUTIONS ARE IN PLACE.
--- NOTE | 2019-08-05 07:40 | NUR ---
RT FINISHED BREATHING TX AND PUT PT ON ROOM AIR TO SEE IF HE CAN TOLERATE IT. PT'S O2 SAT RANGES BETWEEN 89%-92% AT THIS TIME.
--- NOTE | 2019-08-05 08:00 | NUR ---
DR BLISS AND RESIDENTS ROUNDING PT. PT IS AAOX4. POC DISCUSSED. PT STATED HE WILL GO HOME AFTER THE BONE MARROW BIOPSY PROCEDURE. DR BLISS DISCUSSED WITH THE PT ABOUT LEAVING AGAINST MEDICAL ADVICE. PT INSISTED ON LEAVING AFTER THE PROCEDURE.
--- NOTE | 2019-08-05 08:30 | NUR ---
PT WORKED WITH PHYSICAL THERAPIST. PT WAS ABLE TO GO TO RESTROOM WITH WALKER. ALL BED LINENS CHANGED.
[2019-08-05] MEDS: DOCUSATE SODIUM 100 MG GELCAP PO SCH ×2 (08:32→20:56)
[2019-08-05] MEDS: QUEtiapine FUMARATE 100 MG TAB PO SCH (08:32)
[2019-08-05] MEDS: LACTOBACILLUS RHAMNOSUS GG 1 EACH CAP PO SCH (08:32)
[2019-08-05] MEDS: PANTOPRAZOLE 40 MG INJ VIAL IVP SCH (08:32)
[2019-08-05] MEDS: AMIODARONE 200 MG TAB PO SCH ×2 (08:33→20:57)
[2019-08-05] MEDS: THIAMINE 100 MG TAB PO SCH (08:33)
[2019-08-05] MEDS: FOLIC ACID 1 MG TAB PO SCH (08:33)
[2019-08-05] MEDS: MULTIVITAMIN 1 TAB PO SCH (08:36)
--- NOTE | 2019-08-05 09:45 | NUR ---
RECEIVED CALL FROM [facility] OUTPT NURSE BLANCA. REPORT GIVEN TO BLANCA.
--- NOTE | 2019-08-05 11:06 | NUR ---
TONY PICKED UP PT, GOING TO [facility] FOR BONE MARROW BIOPSY. PT'S SHWETHA TOOK ALL PT'S BELONGINGS. Addendum: 08/05/19 at 1315 by Lucio Paredes RN EMPTIED CHAN 650ML URINE. SL IV ON LEFT AC. DISCONNECTED PT FROM MONITOR.
[2019-08-05] MEDS: DEXT 5% / NACL 0.45% 1,000 ML IV SCH (12:45)
--- NOTE | 2019-08-05 13:23 | NUR ---
TRANSFERRED TO [facility] FOR PROCEDURE
--- NOTE | 2019-08-05 13:30 | NUR ---
PT'S REPORT GIVEN TO SUPERVISOR PHOSPHORUS PROCESSINGJOSE RAVI. PT WILL GO TO RM 116 AFTER COMING BACK FROM [facility].
--- NOTE | 2019-08-05 13:40 | NUR ---
CALLED [facility] RADIOLOGY DEPT. PT IS STILL IN THE PROCEDURE ROOM.
--- NOTE | 2019-08-05 16:40 | NUR ---
CALLED [facility] OUTPATIENT REGARDING PT . CONDITION AND TIME TO RETURN. TALK TO FUENTES SHE SAID THE PATIENT HAS OOZING FROM FROM THE PROCETURE SIDE THEY HAS DONE CAUTERIZATION AND PRESSURE DRESSING . PT. WILL RETURN IN 60 MINUTES.
[2019-08-05] MEDS ORDERED: VANCOMYCIN 1,000 MG in DEXTROSE 5% 250 ML IV SCH (17:00)
--- NOTE | 2019-08-05 17:09 | NUR ---
RECEIVED CALL FROM [facility]SE BLANCA. PT HAD BONE MARROW BIOPSY ON THREE SITES. PT HAS TO LAY ON HIS STOMACH FOR TONIGHT AND DR IBANEZ CAUTERIZED RIGHT AND MID PELVIC SITES TO STOP BLEEDING, ALSO DR IBANEZ PLACED GELFOAM AND PRESSURE DRESSING. DR IBANEZ RECOMMENDED WHEN PT COMES BACK, HE NEED 2 BAGS OF PLATELETS. I CALLED DR REED AND JOSE RAVI, MADE THEM AWARE OF THE ABOVE.
--- NOTE | 2019-08-05 18:35 | NUR ---
PT ARRIVED UNIT AT THIS TIME, APPLIED TELE MONITOR BOX AND VITAL SIGNS TAKEN: TEMP 97.5, BP 163/82, PULSE 88, RR 28, DENIED PAIN. ASSISTED AND INSTRUCTED PT TO LAY ON HIS STOMACH. DR REED IS TALKING AND ASSESSING PT AT BEDSIDE. NO SIGNS OF DISTRESS NOTED SAFETY MEASURES IN PLACE. BED IN LOW POSITION AND CALL LIGHT WITHIN REACH.
--- NOTE | 2019-08-05 18:43 | NUR ---
CALLED LAB AND SPOKE TO LABEL PINKER BRADY, PER JUSTINE, SHE WILL HAS TO REACTIVATED THE ORDER, BECAUSE SHE GOT REPORT AND WAS TOLD IT WAS CANCELLED. ADVISED BRADY TO CALL THE UNIT WHEN THE PLT IS READY. WILL ENDORSE TO ON COMING SHIFT TO FOLLOW UP.
--- NOTE | 2019-08-05 18:47 | NUR ---
PER DR REED'S REQUEST, CALLED PATIENT'S FAMILY AND NOTIFIED RAMU. SPOKE TO RAMU,EXPLAINED TO RAMU THAT PT HAS TO LAY ON HIS STOMACH FOR TONIGHT 24 HOURS TO PREVENT BLEEDING. RAMU WAS AWARE AND SAID "OK, I WILL CALL MY DAUGHTER AND I AM ON MY WAY." RAMU WAS AWARE THAT PT IS IN ROOM 116.
--- NOTE | 2019-08-05 19:00 | NUR ---
WENT TO S AND SPOKE WITH STAFF ANALYST STATION SUPERINTENDENT FOR DINNER TRAY. PER EFRAÍN, SHE WILL PREPARED IT AND SEND TRAY TO UNIT.
--- NOTE | 2019-08-05 19:03 | NUR ---
RECEIVED A CALL FROM LAB=Jeanette ABREU AND TOLD PLT IS READY FOR AUTO SELF SERVICE STATION ATTENDANT. WILL ENDORSE TO ONCOMING SHIFT NURSE.
--- NOTE | 2019-08-05 19:23 | NUR ---
ENDORSED PATIENT AT BEDSIDE TO OIL WELL CABLE TOOL DRILLER NURSE FOR CONTINUITY OF CARE. PT RECEIVED HIS DINNER TRAY AND EATING DINNER AT THIS TIME. DAUGHTER IS BY BEDSIDE. OIL WELL CABLE TOOL DRILLER NURSE WAS AWARE OF PLT IS READY FROM LAB AND VANCOMYCIN WILL BE ADMINISTER AFTER PLT. INSTRUCTED PT TO LAY ON HIS STOMACH TO PREVENT BLEEDING AND PT SAID OK. NO SIGNS OF DISTRESS NOTED. PT IS IN STABLE CONDITION. SAFETY MEASURES IN PLACE.
[2019-08-05] MEDS ORDERED: traMADol 50 MG TAB PO SCH (20:55)
--- NOTE | 2019-08-05 21:00 | NUR ---
patient placed back on tele monitor. pt states "ripped off" due to restroom use (one bm per patient and ) and agitation. present at bedside. daughter just left bedside. rt at bedside giving breathing treatment. patient aaox4. patient "accidently" pulled out iv d/t movement. patient took po medications with sip of h2o without any injuries. md present at bedside 2049 states bp elevated d/t irritation and "not worried about it" md spoke with patient, , and daughter. pt spoken to and calm at this time.
--- NOTE | 2019-08-05 21:45 | NUR ---
d/c peripheral iv to left forearm, iv displaced due to patients agitation and moving around uncontrollably. restarted new peripheral iv to left ac 20g. patent and very good blood return, patient oriented on importance of protecting iv site. iv successful after 2 attempts. patient is on close monitoring for low platelets. Iv antibiotics infusing, will start platelet transfusion after antibiotics are complete.
--- NOTE | 2019-08-05 23:00 | NUR ---
CLARIFIED ORDERS WITH RESIDENT MD, VERIFIED WITH CURRENT H&H LEVELS, OK TO HOLD ORDERS FOR PACKED CELLS. CLARIFIED PLATELET PHERESIS ORDER, PATIENT NEEDS A TOTAL OF 10 UNITS. UPDATE MD ONCE TRANSFUSIONS ARE COMPLETE, LAB DRAWS MAY BE OK TO HOLD OFF UNTIL SCHEDULED ROUTINE MORNING DRAWS. WILL ENDORSE TO LAB AND WILL CARRY OUT.
--- NOTE | 2019-08-05 23:15 | NUR ---
Y-PORT IV LINE ALREADY PREPARED. VERIFIED PLATELET PHERESIS BAGS WITH CHARGE NURSE, SASHA-2 PERSON VERIFICATION COMPLETE. PATIENT REORIENTED TO TREATMENT. WILL START TRANSFUSION.
[2019-08-06] VITALS: BP 147/84
--- NOTE | 2019-08-06 01:30 | NUR ---
PATIENT SITTING UP AT BEDSIDE HAVING A SMALL ANXIETY ATTACK, PATIENT IS BREATHING HEAVY, CANNOT BE CONSOLED. UPDATED ON MEDICATION SCHEDULE, VERBALIZES UNDERSTANDING. ENCOURAGED PATIENT TO LIE DOWN AND WATCH SOME TV OR TRY PLAYING HIS GAME ON PHONE. AT BEDSIDE TO ASSIST WITH CALMING PATIENT DOWN. REINFORCED TELE MONITOR AND NASAL CANNULA. WILL CONTINUE TO MONITOR.
--- NOTE | 2019-08-06 03:00 | NUR ---
REMOVED CHAN CATHETER, ASPIRATED NS FROM BALLOON FIRST AND D/C'd CHAN CATHETER. PATIENT TOLERATED WELL. OUTPUT 1,800 ML, GRISELDA URINE WITH SOME SEDIMENT. SAFETY ALARMS IN PLACE, PATIENT RESTING CALMLY WITH AT BEDSIDE.
[2019-08-06 04:00] VITALS: BP 129/78
[2019-08-06] MEDS: MEROPENEM 1,000 MG in NACL 0.9% 100 ML IV SCH (05:47)
[2019-08-06] MEDS: BLOOD GLUCOSE MONITORING 1 DEV DEV FS SCH (06:03)
[2019-08-06] MEDS: ALBUTEROL SULFATE/IPRATROPIU 3 ML SOL IH SCH (06:34)
[2019-08-06 07:14] LABS: ANION GAP 7.4 (8-16); CARBON DIOXIDE 32.4 mmol/L (21-32); CREATININE 0.8 mg/dL (0.7-1.3); POTASSIUM 3.8 mmol/L (3.5-5.1)
--- NOTE | 2019-08-06 07:15 | NUR ---
RECEIVED BEDSIDE REPORT FROM SUPERVISOR INSTRUMENT MAINTENANCE NURSE FOR CONTINUITY OF CARE. PT AWAKE AND SITTING UP ON BED. PT IS AAOX4. RESPIRATION EVEN AND UNLABORED ON 2LPM VIA NC. DENIED PAIN, NAUSEA AND VOMITING. NO SIGNS OF DISTRESS NOTED. IV ON LAC 20G, CLEAN AND INTACT, NOT INFUSING AT THIS TIME. ABDOMINAL BAND AROUND ABD AREA, CLEAN AND DRY. PT IS ABLE TO AMBULATE WITH ASSIST AND CONTINENT. TELE MONITOR ATTACHED. CONTACT PRECAUTION IN PLACE AND SIGN POSTED. SAFETY MEASURES IN PLACE. BED IN LOW POSITION AND CALL LIGHT WITHIN REACH. INSTRUCTED PT TO USE THE CALL LIGHT FOR ANY ASSISTANCE AND PT WAS AWARE.
[2019-08-06 07:23] LABS: MAGNESIUM 1.8 mg/dL (1.8-2.4); PHOSPHORUS 4.5 mg/dL (2.5-4.9)
[2019-08-06 07:31] LABS: BASOPHILS % (AUTO) 0.3 % (0.0-2.0); EOSINOPHILS % (AUTO) 0.1 % (0.0-4.0); LYMPHOCYTES % (AUTO) 26.5 % (20.5-51.1); MEAN CORPUSCULAR HEMOGLOBIN 31 pg (27-31); MEAN CORPUSCULAR HGB CONC 33 g/dL (33-37); MEAN CORPUSCULAR VOLUME 92.1 fL (80-94); MONOCYTES # (AUTO) 0.1 K/uL (0.8-1.0); MONOCYTES % (AUTO) 1.9 % (1.7-9.3); NEUTROPHILS # (AUTO) 2.7 K/uL (1.8-7.7); NEUTROPHILS % (AUTO) 71.2 % (42.2-75.2); PLATELET COUNT (AUTO) 155 K/uL (140-450); RED BLOOD CELL COUNT(AUTO) 2.61 MIL/uL (4.20-6.10); WHITE BLOOD COUNT (AUTO) 3.8 K/uL (4.8-10.8)
--- NOTE | 2019-08-06 07:35 | NUR ---
PATIENT SPEAKING WITH STAFF. AND NEW DAY NURSE. STABLE. NO SOB NOTED. STABLE.
[2019-08-06 08:00] VITALS: BP 156/79
[2019-08-06] MEDS: PANTOPRAZOLE 40 MG INJ VIAL IVP SCH (08:42)
[2019-08-06] MEDS: AMIODARONE 200 MG TAB PO SCH (08:42)
[2019-08-06] MEDS: THIAMINE 100 MG TAB PO SCH (08:43)
[2019-08-06] MEDS: MULTIVITAMIN 1 TAB PO SCH (08:43)
[2019-08-06] MEDS: DOCUSATE SODIUM 100 MG GELCAP PO SCH (08:43)
[2019-08-06] MEDS: LACTOBACILLUS RHAMNOSUS GG 1 EACH CAP PO SCH (08:43)
[2019-08-06] MEDS: FOLIC ACID 1 MG TAB PO SCH (08:43)
--- NOTE | 2019-08-06 08:43 | NUR ---
ADMINISTERED SCHEDULED AM MEDS PER MD ORDER, MEDS ED PROVIDED TO PT AT BEDSIDE, PT VERBALIZED UNDERSTANDING. PT TOLERATED MEDS WELL. PT AWAKE AND TALKING TO PERSONNEL FROM [facility]. DENIED PAIN, NAUSEA, AND VOMITING. NO SIGNS OF DISTRESS NOTED. TELE MONITOR ATTACHED. SAFETY MEASURES IN PLACE. BED IN LOW POSITION AND CALL LIGHT WITHIN REACH. INSTRUCTED PT TO USE THE CALL LIGHT FOR ANY ASSISTANCE AND PT WAS AWARE. BED ALARM ACTIVATED.
--- NOTE | 2019-08-06 08:57 | NUR ---
RECEIVED AN ORDER FOR DC TO HOME WITH HOME HEALTH FOR HOME SAFETY EVAL AND PHYSICAL THERAPY. MET WITH THE PATIENT AT THE BEDSIDE TO DISCUSS DC PLANNING. HE STATED HE HAS NOT BEEN WITH A HOME HEALTH BEFORE. HE ALSO STATED HE DOES NOT HAVE ANY PREFERENCE. HE CONFIRMED THE ADDRESS AND TELEPHONE NUMBER ON FILE. Addendum: 08/06/19 at 1020 by Hoa Faust CM IMM LETTER AND CHOICE OF VENDOR PROVIDED TO THE PATIENT. HE STATED HE DOES NOT HAVE ANY PREFERENCE FOR HOME HEALTH. Addendum: 08/06/19 at 1022 by Hoa Faust CM INQUIRY SENT TO [facility]. CM TO FOLLOW UP. Addendum: 08/06/19 at 1041 by Hoa Faust CM PER RAMU OF [facility], THEY ARE ABLE TO ACCEPT THE PATIENT. DR. REED, PATIENT AND PRIMARY RN MADE AWARE.
--- NOTE | 2019-08-06 09:50 | NUR ---
PT AWAKE AND RESTING ON BED. DAUGHTER BY BEDSIDE. NO SIGNS OF DISTRESS NOTED. TELE MONITOR ATTACHED. SAFETY MEASURES IN PLACE. INFORMED PT THAT DR REED IS WORKING ON THE DISCHARGE AND PT WAS AWARE.
--- NOTE | 2019-08-06 10:25 | NUR ---
ANSWERED'S PT CALL LIGHT AND PT WANTS TO KNOW WHAT TIME HE CAN GO HOME. EXPLAINED TO PT THAT DR REED IS STILL GOING THE DC FOR HIM. AND ONCE COMPLETE, I WILL COMPILE THE DISCHARGE DOCUMENT. PT WAS AWARE AND SAID "OK,I WILL WAIT A LITTLE BIT."
[2019-08-06] MEDS ORDERED: AMIO200T10 PO (11:10)
--- NOTE | 2019-08-06 11:40 | NUR ---
PT CHANGED INTO HIS OWN CLOTHES WITH ASSIST FROM DAUGHTER. ASSESSED THE SURGICAL WOUND ON BACK, TWO PIN POINTS NOTED, OPEN TO AIR, INTACT AND NO BLEEDING. PICTURES TAKEN AND REINFORCED DRESSING. APPLIED ABD BAND. INSTRUCTED PT TO KEEP ABD BAND ON. PT DENIED PAIN ON SITES.
--- NOTE | 2019-08-06 12:06 | NUR ---
RAMU ARRIVED BEDSIDE. DISCHARGE INSTRUCTION PROVIDED TO PT AND RAMU. EDUCATED PT ON MD FOLLOW UP, SEEK MEDICAL HELP IN CASE OF MEDICAL EMERGENCY, MEDICATION REGIMEN, SIDE EFFECTS, DISEASE MANAGEMENT, AND DIET. ANSWERED ALL PT'S AND RAMU'S QUESTIONS, BOTH VERBALIZED UNDERSTANDING. REMOVED IV AND CANNULA INTACT AND NO BLEEDING AT IV SITE. REMOVED ALL ARM BANDS. REMOVED TELE MONITOR AND RETURNED TO AERIAL PHOTOGRAMMETRIST. PT REFUSED FLU AND PNA VACCINES, AND EDUCATION PROVIDED, PT STATED " I WILL GET THEM FROM SOMEWHERE ELSE." PT WAS AWARE THAT HIS PRESCRIPTION SEND TO HIS PREFERRED PHARMACY. RAMU CHECKED ALL THE CABINETS AND TOOK ALL PATIENT'S BELONGINGS HOME. ESCORTED PT TO FRONT LOBBY WITH WHEEL CHAIR. PT IS GOING TO DC HOME WITH RAMU. PT IS IN STABLE CONDITION.
== END 2019-08-06 12:06 | disposition home or self-care (01) | DRG 871 ==
LOC: MED 16:34 → MIC 22:07 → MTU 08-05 18:25
PROVIDERS: ADMIT General Practice; ATTEND General Practice
PROC: 0DJ08ZZ Inspection of Upper Intestinal Tract, Via Natural or Artificial Opening Endoscopic (ICD-10-PCS; 2019-07-25)
PROC: 30233K1 Transfusion of Nonautologous Frozen Plasma into Peripheral Vein, Percutaneous Approach (ICD-10-PCS; 2019-07-25)
PROC: 30233N1 Transfusion of Nonautologous Red Blood Cells into Peripheral Vein, Percutaneous Approach (ICD-10-PCS; 2019-07-25)
PROC: 30233R1 Transfusion of Nonautologous Platelets into Peripheral Vein, Percutaneous Approach (ICD-10-PCS; 2019-07-25)
PROC: 0DJ08ZZ Inspection of Upper Intestinal Tract, Via Natural or Artificial Opening Endoscopic (ICD-10-PCS; 2019-07-25)
PROC: 5A09357 Assistance with Respiratory Ventilation, Less than 24 Consecutive Hours, Continuous Positive Airway Pressure (ICD-10-PCS; principal; 2019-07-27)
PROC: 07DR3ZX Extraction of Iliac Bone Marrow, Percutaneous Approach, Diagnostic (ICD-10-PCS; 2019-08-05)
DX: A41.9 Sepsis, unspecified organism (principal); I50.43 Acute on chronic combined systolic (congestive) and diastolic (congestive) heart failure; E43 Unspecified severe protein-calorie malnutrition; J69.0 Pneumonitis due to inhalation of food and vomit; R65.21 Severe sepsis with septic shock; G92 Toxic encephalopathy; J96.01 Acute respiratory failure with hypoxia; K92.2 Gastrointestinal hemorrhage, unspecified; D62 Acute posthemorrhagic anemia; I47.1 Supraventricular tachycardia; D61.818 Other pancytopenia; D68.9 Coagulation defect, unspecified; J98.11 Atelectasis; T43.621A Poisoning by amphetamines, accidental (unintentional), initial encounter; F17.210 Nicotine dependence, cigarettes, uncomplicated; K72.90 Hepatic failure, unspecified without coma; G89.29 Other chronic pain; K70.30 Alcoholic cirrhosis of liver without ascites; F10.10 Alcohol abuse, uncomplicated; Y90.9 Presence of alcohol in blood, level not specified; F19.10 Other psychoactive substance abuse, uncomplicated; E83.42 Hypomagnesemia; Z68.33 Body mass index [BMI] 33.0-33.9, adult; E66.9 Obesity, unspecified; E87.6 Hypokalemia; E83.41 Hypermagnesemia; E87.8 Other disorders of electrolyte and fluid balance, not elsewhere classified; Y92.89 Other specified places as the place of occurrence of the external cause; R13.10 Dysphagia, unspecified; I34.0 Nonrheumatic mitral (valve) insufficiency; Z22.322 Carrier or suspected carrier of Methicillin resistant Staphylococcus aureus
CPT/HCPCS: 36415; 36600; 70450; 71045; 74018; 76705; 80048; 80053; 80076; 80202; 80305; 81001; 82140; 82247; 82248; 82272; 82607; 82728; 82746; 82803; 82948; 83010; 83036; 83540; 83605; 83625; 83690; 83735; 83880; 84100; 84165; 84443; 84484; 85025; 85045; 85379; 85384; 85610; 85730; 86334; 86704; 86706; 86708; 86709; 86803; 86886; 86900; 86901; 86920; 87040; 87070; 87081; 87086; 87186; 87205; 87340; 87804; 89220; 92610; 93005; 94640; 94660; 96361; 96374; 97110; 97116; 97530; 99291; A9153; C9113; G0482; J0282; J1630; J1885; J2001; J2060; J2185; J2250; J2270; J2354; J2543; J3010; J3370; J3411; J3475; J3480; J3490; J7030; J7042; J7060; J7620; P9016; P9017; P9035; Q0092; Q0177

== ENCOUNTER 2019-08-07 14:16 | Inpatient (IN) | payer OTHER ==
[~2019-08-07] VITALS: Ht 172.7 cm; Wt 90.7 kg
[~2019-08-07 14:16] MED LIST: AMIO200T10 PO
[2019-08-07 14:30] VITALS: BP 123/73
[2019-08-07] MEDS ORDERED: NACL 0.9% 1,000 ML IV SCH (14:44)
--- NOTE | 2019-08-07 14:45 | NUR ---
PATIENT BIBA FROM CARE FACILITY FOR HAVING "BP IN 500'S" AND THAT THEY RECOMMENDED THE PATIENT COME HERE. PATIENT COMPLAINS OF FLU LIKE SYMPTOMS. PATIENT ALSO COMPLAINS OF ANXIETY AND SOB. PATIENT DENIES CHEST PAIN AND HEADACHE. LUNG SOUNDS CTABL, SPO2 96%, RR 16. TEMPERATURE 97.7. BP 126/73. PATIENT STATES HE WAS ADMITTED YESTERDAY. DAUGHTER AT BEDSIDE. PATIENT ALERT AND ORIENTED, BREATHING EVEN AND UNLABORED, SKIN WARM AND DRY. BED IN LOWEST POSITION, LOCKED, BED RAIL UPX1. PMH - DENIES MEDICATIONS - "HEART MEDS" ALLERGIES - NKA
[2019-08-07 15:30] LABS: BASOPHILS # (AUTO) 0.1 K/uL (0.00-0.22); BASOPHILS % (AUTO) 0.8 % (0.0-2.0); HEMATOCRIT 28.3 % (36-52); HEMOGLOBIN 9.2 g/dL (12.0-18.0); LYMPHOCYTES # (AUTO) 1.5 K/uL (2.0-11.5); LYMPHOCYTES % (AUTO) 24.5 % (20.5-51.1); MEAN CORPUSCULAR HEMOGLOBIN 30 pg (27-31); MEAN CORPUSCULAR HGB CONC 32 g/dL (33-37); MEAN CORPUSCULAR VOLUME 92.1 fL (80-94); MONOCYTES # (AUTO) 0.2 K/uL (0.8-1.0); MONOCYTES % (AUTO) 2.5 % (1.7-9.3); NEUTROPHILS # (AUTO) 4.5 K/uL (1.8-7.7); NEUTROPHILS % (AUTO) 72.2 % (42.2-75.2); PLATELET COUNT (AUTO) 226 K/uL (140-450); RED BLOOD CELL COUNT(AUTO) 3.08 MIL/uL (4.20-6.10); RED CELL DISTRIBUTION WIDTH 15.1 % (11.6-13.7); WHITE BLOOD COUNT (AUTO) 6.3 K/uL (4.8-10.8)
--- NOTE | 2019-08-07 15:40 | NUR ---
PATIENT ALERT AND ORIENTED, BREATHING EVEN AND UNLABORED
[2019-08-07 15:53] LABS: ALBUMIN 2.2 g/dL (3.4-5.0); ANION GAP 9.6 (8-16); CARBON DIOXIDE 30.3 mmol/L (21-32); CREATININE 0.9 mg/dL (0.7-1.3); POTASSIUM 3.9 mmol/L (3.5-5.1); TOTAL BILIRUBIN 2.1 mg/dL (0.0-1.0)
[2019-08-07 16:04] LABS: MAGNESIUM 1.9 mg/dL (1.8-2.4); THYROID STIMULATING HORMONE 4.57 uIU/mL (0.34-3.74)
[2019-08-07 16:16] LABS: APPEARANCE,URINE CLEAR (CLEAR); BILIRUBIN,URINE 1+ (NEGATIVE); BLOOD, URINE NEGATIVE (NEGATIVE); COLOR,URINE YELLOW (YELLOW); LEUKOCYTE ESTERASE ,URINE NEGATIVE (NEGATIVE); NITRITE, URINE NEGATIVE (NEGATIVE); PH,URINE 8.5 (5.0-9.0); UGLUCOSE NEGATIVE (NEGATIVE)
[2019-08-07 16:39] LABS: RBC,URINE 0 /HPF (0-5); WBC,URINE 0-5 /HPF (0-5)
[2019-08-07] MEDS: NACL 0.9% 1,000 ML IV SCH (16:46)
[2019-08-07] MEDS ORDERED: ONDANSETRON 4 MG/2 ML VIAL IM/IVP PRN (16:50)
[2019-08-07] MEDS ORDERED: DOCUSATE SODIUM 100 MG GELCAP PO PRN (16:50)
[2019-08-07] MEDS ORDERED: ACETAMINOPHEN 325 MG TAB PO PRN (16:50)
--- NOTE | 2019-08-07 17:14 | NUR ---
PATIENT ALERT AND ORIENTED, BREATHING EVEN AND UNLABORED
[2019-08-07] MEDS ORDERED: ALBUTEROL SULFATE/IPRATROPIU 3 ML SOL IH PRN (17:25)
[2019-08-07 17:33] LABS: PROTHROMBIN TIME 11.6 secs (10.8-13.4)
--- NOTE | 2019-08-07 17:40 | NUR ---
Patient will be admitted to care of DR BLISS. Admited to TELE. Will go to [facility]. Belongings list completed. Report to STEVE GARCIA.
[2019-08-07 17:43] LABS: MAGNESIUM 1.8 mg/dL (1.8-2.4)
[2019-08-07 17:45] LABS: PHOSPHORUS 4.6 mg/dL (2.5-4.9)
--- NOTE | 2019-08-07 17:45 | NUR ---
PT ARRIVED ON THE UNIT FROM ER VIA GURNEY. PT AMBULATED WITH ASSIST FROM THE GURNEY TO THE BED. RECEIVED BEDSIDE REPORT FROM CLAUS GARCIA. PT IS ON 2L 02 VIA NASAL CANULA. PERFORMED HEAD TO TOE ASSESSMENT ALL SAFETY MEASURES ARE IN PLACE ORIENTED PT TO THE UNIT. WILL CONTINUE TO MONITOR.
[2019-08-07 17:58] VITALS: BP 140/64
[2019-08-07 18:51] LABS: BARBITURATE, URINE NEG. ng/ml (NEG <=200); BENZODIAZEPINE, URINE NEG. ng/mL (NEG <=200); CANNABINOID, URINE POS. ng/mL (NEG <=50); COCAINE, URINE NEG. ng/mL (NEG <=300); OPIATE, URINE NEG. ng/mL (NEG <=2000); PHENCYCLIDINE SCREEN,URINE NEG. ng/mL (NEG <=25)
--- NOTE | 2019-08-07 19:28 | NUR ---
ENDORSED PT TO PM RN PT APPEARS STABLE AND IN NO APPARENT DISTRESS. ALL SAFETY MEASURES ARE IN PLACE
--- NOTE | 2019-08-07 19:30 | NUR ---
RECEIVED FROM AM RN IN BED AWAKE AND SP[OUSE AT BEDSIDE. CARE PLANS FOR THE NIGHT DISCUSSED WITH HIM. CALL LIGHT USE EXPLAINED. ENCOURAGED TO CALL FOR ANY HELP HE MIGHT NEED. DX. GENERALIZED WEAKNESS.
[2019-08-07] MEDS ORDERED: busPIRone 5 MG TAB ONE (19:42)
[2019-08-07] MEDS: busPIRone 5 MG TAB PO SCH (19:43)
[2019-08-07 20:00] VITALS: BP 142/62
--- NOTE | 2019-08-07 20:10 | NUR ---
SPOUSE AT BEDSIDE. PICC LINE JOSE SMITH IN HERE TO INSERT . NO SOB. ABLE TO VERBALIZE NEEDS WELL.
[2019-08-07] MEDS ORDERED: INSULIN LISPRO SLIDING SCALE 100 UNITS/ML VIAL SUBQ PRN (22:15)
[2019-08-07] MEDS ORDERED: DEXTROSE 50% 50 ML SYR IVP PRN (22:15)
--- NOTE | 2019-08-08 00:48 | NUR ---
CT SCAN DONE AND PT. BACK IN ROOM. SPOUSE AT BEDSIDE TO PACIFY PT. NO COMPLAINTS DONE.
--- NOTE | 2019-08-08 01:24 | NUR ---
AT BEDSIDE AND REFUSED TO HAVE ME DISTURB PT. FOR VITAL SIGNS.
--- NOTE | 2019-08-08 03:00 | NUR ---
SLEEPING WELL WITH AT BEDSIDE. CALM.
[2019-08-08 04:30] VITALS: BP 132/63
[2019-08-08] MEDS: BLOOD GLUCOSE MONITORING 1 DEV DEV FS SCH ×4 (05:47→20:25)
--- NOTE | 2019-08-08 06:53 | NUR ---
SLEPT WELL WITH BESIDE HIM. ABLE TO VERBALIZE NEEDS WELL. NO SOB. CALL LIGHT WITH IN REACH. TELEMETRY MONITORING. WILL ENDORSE TO AM RN FOR CONTINUITY OF CARE. NO COMPLAINTS DONE.
--- NOTE | 2019-08-08 07:20 | NUR ---
RECEIVED REPORT FROM GAMING DIRECTOR NURSE FLOYD. PT ORIENTED AAOX4, NO C/O PAIN AT THIS TIME. PT IV ON LT WRIST 22 GA, ON SALINE LOCK, AND NOTED PICC LINE ON RT UPPER CHEST RUNNING IVF PER ORDER. RESPIRATIONS EVEN AND UNLABORED ON RA. ABD SOFT, ACTIVE BS. PT IS AMBULATORY, SAFETY MEASURES IN PLACE, CALL LIGHT WITHIN REACH. REVIEWED POC WITH PT, PT VERBALIZED UNDERSTANDING.
[2019-08-08 07:24] LABS: BASOPHILS % (AUTO) 0.4 % (0.0-2.0); HEMATOCRIT 24.5 % (36-52); HEMOGLOBIN 8.2 g/dL (12.0-18.0); LYMPHOCYTES # (AUTO) 1.7 K/uL (2.0-11.5); LYMPHOCYTES % (AUTO) 24.5 % (20.5-51.1); MEAN CORPUSCULAR HEMOGLOBIN 31 pg (27-31); MEAN CORPUSCULAR HGB CONC 33 g/dL (33-37); MEAN CORPUSCULAR VOLUME 91.9 fL (80-94); MONOCYTES # (AUTO) 0.1 K/uL (0.8-1.0); MONOCYTES % (AUTO) 1.3 % (1.7-9.3); NEUTROPHILS # (AUTO) 5.1 K/uL (1.8-7.7); NEUTROPHILS % (AUTO) 73.8 % (42.2-75.2); PLATELET COUNT (AUTO) 199 K/uL (140-450); RED BLOOD CELL COUNT(AUTO) 2.66 MIL/uL (4.20-6.10); RED CELL DISTRIBUTION WIDTH 15.5 % (11.6-13.7)
[2019-08-08 08:00] VITALS: BP 136/72
[2019-08-08 08:15] LABS: MAGNESIUM 1.8 mg/dL (1.8-2.4); PHOSPHORUS 3.5 mg/dL (2.5-4.9)
[2019-08-08 08:30] LABS: ANION GAP 10.6 (8-16); CREATININE 0.8 mg/dL (0.7-1.3); POTASSIUM 3.6 mmol/L (3.5-5.1)
[2019-08-08] MEDS ORDERED: AMIODARONE 200 MG TAB PO SCH (09:00)
--- NOTE | 2019-08-08 09:09 | NUR ---
PATIENT HAS BEEN SCREENED AND CATEGORIZED HIGH NUTRITION RISK. PATIENT WILL BE SEEN WITHIN 1-2 DAYS OF ADMISSION. 08/08/19-08/09/[address]
[2019-08-08] MEDS: busPIRone 5 MG TAB PO SCH ×2 (09:19→20:26)
--- NOTE | 2019-08-08 09:19 | NUR ---
ADMINISTERED MEDICATIONS PER ORDER, AT BEDSIDE, EXPLAINED INDICATIONS AND POTENTIAL SIDE EFFECTS.
[2019-08-08] MEDS: NACL 0.9% 1,000 ML IV SCH ×2 (09:26→17:09)
[2019-08-08] MEDS ORDERED: busPIRone 5 MG TAB PO SCH (11:00)
--- NOTE | 2019-08-08 11:01 | NUR ---
AWAKE AND ALERT VERBALLY RESPONSIVE PATIENT C/O OF NASAL DRYNESS WITH SUPPLEMENTAL OXYGEN USE ADDED HUMIDIFIER
--- NOTE | 2019-08-08 11:44 | NUR ---
ADMINISTERED BUSPAR PER ORDER, PT C/O OF INTERMITTENT FEELINGS OF ANXIETY.
[2019-08-08 12:00] VITALS: BP 125/79
--- NOTE | 2019-08-08 12:16 | NUR ---
Blood Bank Laboratory Technologist Note: Basic Screen: Yes High Risk DC Screen [place]: RAMU Whittaker Relationship: Pre-Admission Living Arrangements: Lives with Other Prior ADL Independent Current Home Health Name/Tel: [facility] Current / Name/Tel: N/A Current Hospice Name/Tel: N/A Current Dialysis Name/Tel: N/A Advance Directive No - REFUSED Physician Orders for Life Sustaining Treatment Form No Patient/Family Have Educational Needs No Information Taught: Community Resources Person Taught: Patient Teaching Tools: Community Resources Verbal Factors Affecting Learning: None Participation Level: Active Evaluation: Verbalizes Understanding Discipline: Case Mgt/Social Svcs Tentative Discharge Plan/Destination: SNF/ECF Will require assistance post discharge: No Referred to Auditing Specialist: No Tentative Discharge Plan Summary: Patient is a 53-year-old male admitted for generalized weakness. Patient has PMHX of pancytopenia, myelosuppression, liver failure, hypertension, ACSDHF with moderate global hypokinesis, meth abuse, MRSA nares colonized, poly substance abuse disorder, alcohol abuse disorder with withdrawal, severe protein nalutrition with obesity. Patient was admitted from home after being discharged 08/06/2019. Patient reported drug history of methamphetamine use. Patient reports smoking "25" a day. SW provided patient resources for substance abuse. SW also provided patient a Choice Letter regarding SNFs. Patient reported [facility] to go to [facility], [facility], and [facility] after discharge. SW will follow up as needed. Signature: TATYANA Crandall Date: Aug 08, 2019 Time: 12:11
--- NOTE | 2019-08-08 13:29 | NUR ---
DISCHARGE PLANNING 53 y/o male readmitted for generalized weakness and SOB. Pt was dc 08/06/19 home with services. Chest x-ray & CT of chest concerning for chest wall abscess as well as lung abscess. Dr. Jackson requesting to transfer patient out for higher level of care; recommended [facility]. Rcd call to [facility] bed control and spoke to Gisela. Records faxed to . Sw will continue following up as needed. MARLEN Shabazz/ Ext [phone] Addendum: 08/08/19 at 1624 by Vesna Wood 15:45 - Rcd call to [facility] and spoke to Gisela/[facility] who stated admitting was unable to verify pt's Medicare. Gisela stated she still also doesn't have an accepting doctor. Requested for admitting to provide me with a print out of patient's Medicare eligibility and faxed to [facility] along with transfer agreement. Records also faxed to Chanda Tracy, [facility] Jade, and [facility]. Dr. Ceja informed. Vesna Wood, MARLEN/CM Ext [phone] Addendum: 08/10/19 at 1027 by Vesna Kelley Per Keaton from [facility] transfer center , patient is second on the list and they will call nurses' station once bed is available. Per Celine from [facility] transfer center , they do not have thoracic surgery at their hospital. Per [facility] transfer center , they do not have any tele beds at this time and will call us once they do. Patient's nurse Avi made aware of above information. Addendum: 08/10/19 at 1045 by Vesna Kelley Per JOSE Hopkins from [facility] transfer center option 3, she will fax me a letter of agreement, she stated once they receive letter of agreement back they will then do a doctor to doctor call/s and start looking for a bed. I received letter of agreement, I provided letter of agreement to [employer] Supervisor Leena for her to review. Addendum: 08/10/19 at 1316 by Vesna Kelley SS [employer] Supervisor Leena provided me with signed letter of agreement, I faxed it to [facility], fax . I confirmed with Makenzie from [facility] transfer center option 3 letter of agreement was received.
--- NOTE | 2019-08-08 13:45 | NUR ---
PT IS RESTING IN BED IN SUPINE POSITION, RESPIRATIONS EVEN AND UNLABORED ON RA.
--- NOTE | 2019-08-08 15:10 | NUR ---
DAUGHTER AT BEDSIDE, PT NOTIFIED THAT PLAN FOR TRANSFER IS IN PROCESS.
--- NOTE | 2019-08-08 15:48 | NUR ---
08/08/19 RD INITIAL ASSESSMENT COMPLETED PLEASE REFER TO NUTRITION ASSESSMENT UNDER CARE ACTIVITY FOR ESTIMATED NUTRITIONAL NEEDS. 1. RECOMMEND SOFT CARDIAC DIET 2. RECOMMEND ENSURE BID 3. RD PROVIDED NUTRITION EDUCATION FOR CIRRHOSIS. PT AND FAMILY ACCEPTED 4. RD TO FOLLOW-UP 2-3 DAYS, HIGH RISK TANNA CHRISTENSEN, RD
[2019-08-08 16:00] VITALS: BP 126/78
[2019-08-08] MEDS ORDERED: hydrOXYzine HCL 10 MG TAB PO SCH (17:00)
--- NOTE | 2019-08-08 17:06 | NUR ---
ADMINISTERED HYDROXYZINE PER ORDER, PT C/O ANXIETY AND NERVOUSNESS, EDUCATED PT TO SLOW BREATHING AND BREATHING EXERCISES. DAUGHTER AT SIDE TO REDIRECT AND DISTRACT PT.
[2019-08-08] MEDS: ALBUTEROL SULFATE/IPRATROPIU 3 ML SOL IH SCH (19:00)
--- NOTE | 2019-08-08 19:25 | NUR ---
ENDORSED PT TO INTERACTIVE MEDIA MARKETING DIRECTOR NURSE FLOYD, PT HAS ASLEEP IN RT LATERAL POSITION, NO SIGNS OF DISTRESS AT THIS TIME.
--- NOTE | 2019-08-08 19:30 | NUR ---
RECEIVED FROM AM RN IN BED AWAKE AND ALERT. AT BEDSIDE. NO COMPLAINTS DONE. CARE PLANS FOR THE NIGHT DISCUSSED WITH THEM. TELEMETRY MONITORING. ENCOURAGED TO CALL FOR ANY HELP THEY MAY NEED.
--- NOTE | 2019-08-08 19:57 | NUR ---
WENT INTO PATIENTS ROOM TO DO A SCHEDULE BREATHING TX. PT WAS ASLEEP. WOKE PATIENT UP AND LET HIM KNOW IF HE WANTS HIS SCHEDULE BREATHING TX. PT REFUSED AND SAID TO COME CHECK UP ON HIM LATER. PT WAS SAT 93%. NO SOB NOTED. PT REMAINS RELAXED. IS AT BEDSIDE. WILL CONT. TO MONITOR
[2019-08-08 20:00] VITALS: BP 133/69
--- NOTE | 2019-08-08 20:29 | NUR ---
PT. WITH SPOUSE. NO COMPLAINTS OF PAIN AT THIS TIME. CALL LIGHT WITH IN REACH. TELEMETRY MONITORING. P.O. MEDICATION TOLERATED WELL.
[2019-08-09 00:10] VITALS: BP 143/65
--- NOTE | 2019-08-09 02:37 | NUR ---
SPOUSE AT BEDSIDE. PT. SLEEPING WELL. NO RESTLESSNESS. CALL LIGHT WITH IN REACH. TELEMETRY MONITORING.
[2019-08-09 04:00] VITALS: BP 133/62
--- NOTE | 2019-08-09 04:00 | NUR ---
SLEEPING WELL. CALL LIGHT WITH IN REACH.
[2019-08-09] MEDS: BLOOD GLUCOSE MONITORING 1 DEV DEV FS SCH ×4 (05:10→21:09)
[2019-08-09 06:10] LABS: BASOPHILS % (AUTO) 0.4 % (0.0-2.0); EOSINOPHILS % (AUTO) 0.1 % (0.0-4.0); HEMATOCRIT 24.6 % (36-52); HEMOGLOBIN 8.1 g/dL (12.0-18.0); LYMPHOCYTES # (AUTO) 1.8 K/uL (2.0-11.5); LYMPHOCYTES % (AUTO) 22.1 % (20.5-51.1); MEAN CORPUSCULAR HEMOGLOBIN 30 pg (27-31); MEAN CORPUSCULAR HGB CONC 33 g/dL (33-37); MEAN CORPUSCULAR VOLUME 92.4 fL (80-94); MONOCYTES # (AUTO) 0.1 K/uL (0.8-1.0); MONOCYTES % (AUTO) 1.7 % (1.7-9.3); NEUTROPHILS # (AUTO) 6.2 K/uL (1.8-7.7); NEUTROPHILS % (AUTO) 75.7 % (42.2-75.2); PLATELET COUNT (AUTO) 179 K/uL (140-450); RED BLOOD CELL COUNT(AUTO) 2.66 MIL/uL (4.20-6.10); RED CELL DISTRIBUTION WIDTH 15.4 % (11.6-13.7); WHITE BLOOD COUNT (AUTO) 8.2 K/uL (4.8-10.8)
[2019-08-09 06:23] LABS: CARBON DIOXIDE 28.5 mmol/L (21-32); CREATININE 0.8 mg/dL (0.7-1.3); POTASSIUM 3.5 mmol/L (3.5-5.1)
[2019-08-09 06:34] LABS: MAGNESIUM 1.7 mg/dL (1.8-2.4); PHOSPHORUS 4.3 mg/dL (2.5-4.9)
--- NOTE | 2019-08-09 06:37 | NUR ---
PT. AWAKE AT THIS TIME. NO COMPLAINTS DONE THIS SHIFT. SLEPT WELL. WAKES UP EASILY WHEN TOUCHED. SPOUSE AT BEDSIDE 13/02. NO PAIN COMPLAINTS. TELEMETRY MONITORING.
--- NOTE | 2019-08-09 07:15 | NUR ---
RECEIVED PATIENT FROM SHOE DRESSER NURSEFLOYD. PATIENT IS AAOX4. RESPIRATIONS EVEN AND UNLABORED, 3L O2 VIA NC. HAS BREATHING TREATMENT SCHEDULED. VISIBLE CHEST RISE NOTED. ON TELE MONITORING. ABDOMEN SOFT AND NONTENDER. BOWEL SOUNDS ACTIVE X4 QUADS. SKIN WARM AND DRY. PICC LINE DOUBLE LUMEN, RUNNING NS AT 60 ML/HR. PICC LINE PATENT AND INTACT. PATIENT IN CONTACT PRECAUTION. BED IN LOW POSITION. CALL LIGHT IS WITHIN REACH. AT BEDSIDE. WILL CONTINUE TO MONITOR
[2019-08-09] MEDS: ALBUTEROL SULFATE/IPRATROPIU 3 ML SOL IH SCH ×3 (07:34→19:25)
--- NOTE | 2019-08-09 07:58 | NUR ---
DR. BLISS AND THE RESIDENT DOCTORS MADE ROUNDS
[2019-08-09 08:00] VITALS: BP 139/83
[2019-08-09] MEDS: busPIRone 5 MG TAB PO SCH ×2 (09:11→21:05)
--- NOTE | 2019-08-09 09:11 | NUR ---
ADMINISTERED BUSPAR PO. EXPLAINED TO PATIENT INDICATION. PATIENT VERBALIZED UNDERSTANDING. WILL CONTINUE TO MONITOR. BED IN LOW POSITION. CALL LIGHT IS WITHIN REACH.
--- NOTE | 2019-08-09 11:32 | NUR ---
BLOOD GLUCOSE CHECK: 98. NO INSULIN COVERAGE.
[2019-08-09 12:00] VITALS: BP 132/73
--- NOTE | 2019-08-09 12:25 | NUR ---
PATIENT IS EATING LUNCH AT THIS TIME. NO SIGNS OF DISTRESS NOTED. DAUGHTER AT BEDSIDE
[2019-08-09] MEDS ORDERED: BUS5 PO (12:58)
[2019-08-09] MEDS ORDERED: MAGNESIUM OXIDE 400 MG TAB PO SCH (13:00)
--- NOTE | 2019-08-09 13:00 | NUR ---
GIVEN MAG-OX PO FOR MAG LEVEL 1.7. EXPLAINED TO PATIENT MED. PATIENT VERBALIZED UNDERSTANDING. BED IN LOW. CALL LIGHT IS WITHIN REACH. WILL CONTINUE TO MONITOR
--- NOTE | 2019-08-09 14:05 | NUR ---
PATIENT IS SLEEPING AT THIS TIME. NO SIGNS OF DISTRESS NOTED. ON 3L O2 VIA NC. BED IN LOW POSITION. CALL LIGHT IS WITHIN REACH. WILL CONTINUE TO MONITOR. DAUGHTER AT BEDSIDE
[2019-08-09 16:00] VITALS: BP 134/70
--- NOTE | 2019-08-09 16:35 | NUR ---
BLOOD GLUCOSE CHECK: 142. NO COVERAGE
--- NOTE | 2019-08-09 17:09 | NUR ---
NUTRITION EDUCATION FOR LOW SODIUM DIET DISCUSSED WITH PATIENT. PATIENT WILL BENEFIT FROM REINFORCEMENT OF RECOMMENDATIONS. MENU FOR DINNER WAS ALSO MODIFIED TO INCLUDE A PEANUT BUTTER AND JELLY SANDWICH, DIET LEMON PASCUA YAQUI SODA, FRESH ORANGE, AND LOW FAT MILK.
--- NOTE | 2019-08-09 18:32 | NUR ---
PATIENT IS EATING DINNER AT THIS TIME. NO SIGNS OF DISTRESS NOTED. BED IN LOW. CALL LIGHT IS WITHIN REACH. FAMILY AT BEDSIDE
--- NOTE | 2019-08-09 19:15 | NUR ---
ENDORSED PATIENT TO BUFFER NICKEL NURSE. PATIENT IS IN STABLE CONDITION
--- NOTE | 2019-08-09 19:20 | NUR ---
RECEIVED BEDSIDE REPORT FROM DAY SHIFT NURSE. PATIENT IS AWAKE, ALERT, AND COOPERATIVE. RESPIRATION EVEN UNLABORED ON ROOM AIR. NO DISTRESS NOTED. SKIN IS WARM AND DRY. RIGHT UPPER ARM PICC LINE PATENT AND INTACT. FAMILY AT BEDSIDE. PLAN OF CARE WAS DISCUSSED. ALL SAFETY MEASURES IN PLACE. BED IS AT LOW POSITION. CALL LIGHT WITHIN REACH AND VERBALIZES ITS USE. WILL CONTINUE TO MONITOR.
--- NOTE | 2019-08-09 19:36 | NUR ---
RECEIVED PT ON 2L NC WITH SP02 OF 93% AND A COARSE BREATH SOUNDS. NO RESPIRATORY DISTRESS NOTED AT THIS TIME; HR 90, RR 18. HHN TX GIVEN ORDERED WITH NO ADVERSE REACTION. FAMILY AT THE BEDSIDE. WILL CONTINUE TO MONITOR PT
[2019-08-09 20:00] VITALS: BP 125/76
--- NOTE | 2019-08-09 20:00 | NUR ---
INITIAL ASSESSMENT DONE. VITALS WERE TAKEN. PATIENT IN STABLE CONDITION. NO DISTRESS NOTED. WILL CONTINUE TO MONITOR.
--- NOTE | 2019-08-09 21:20 | NUR ---
ALL SCHEDULED MEDS WERE GIVEN PER ORDER. NO ASE NOTED. FAMILY AT BEDSIDE. WILL CONTINUE TO MONITOR.
--- NOTE | 2019-08-09 22:16 | NUR ---
CHECKED PATIENT. PATIENT IN BED WATCHING TV RESPIRATION EVEN UNLABORED ON 2L O2 NC. NO DISTRESS NOTED. FAMILY AT BEDSIDE.WILL CONTINUE TO MONITOR.
[2019-08-09] MEDS ORDERED: MELATONIN 3 MG TAB PO SCH (23:50)
--- NOTE | 2019-08-09 23:55 | NUR ---
VITALS WERE TAKEN. PATIENT IN STABLE CONDITION. PATIENT IS ANXIOUS AND ASKING FOR SLEEPING AID. PRN MELATONIN GIVEN PER ORDER. WILL CONTINUE TO MONITOR.
[2019-08-10] VITALS (7 sets, daily range): BP systolic 104–131; BP diastolic 52–93
--- NOTE | 2019-08-10 01:20 | NUR ---
SPOKE TO DR. JACK. DOCTOR WANTS TO ORDER PENICILLIN G IV 2MILLIUNITS Q4H FOR PATIENT. MEDICATION IS NOT FOUND ON THE MEDS ORDER LIST. [facility]ED [facility] TO VERIFY MEDICATION. PHARMACY SAID HIS GOING TO TRY TO INPUT THE ORDER AND IF HE CANT HE ADVICE US TO WAIT FOR OUR PHARMACY IN THE MORNING TO DO THE ORDER AND DOSAGE.
--- NOTE | 2019-08-10 02:03 | NUR ---
PATIENT IS ON AND OFF V-TACH ON TELE MONITOR WITH A HEART RATE RANGING 100-110. CHECKED PATIENT. PATIENT STABLE. CHECKED PLACEMENT OF TELE LINE AND BOX. NO DISTRESS NOTED. WILL CONTINUE TO MONITOR.
[2019-08-10] MEDS: NACL 0.9% 1,000 ML IV SCH (02:06)
--- NOTE | 2019-08-10 02:15 | NUR ---
PATIENT IS NOW BACK ON SINUS RHYTHM ON TELE. WILL CONTINUE TO MONITOR
[2019-08-10] MEDS: PENICILLIN G POTASSIUM 2 MU in NACL 0.9% 50 ML IV SCH ×5 (02:41→20:07)
--- NOTE | 2019-08-10 02:45 | NUR ---
FIRST DOSE OF PENICILLIN G IV GIVEN PER ORDER. WILL CONTINUE TO MONITOR.
--- NOTE | 2019-08-10 04:14 | NUR ---
VITALS WERE TAKEN. PATIENT IN STABLE CONDITION. NO DISTRESS NOTED. WILL CONTINUE TO MONITOR.
[2019-08-10] MEDS: ALBUTEROL SULFATE/IPRATROPIU 3 ML SOL IH SCH ×3 (06:36→19:34)
[2019-08-10] MEDS: BLOOD GLUCOSE MONITORING 1 DEV DEV FS SCH ×4 (06:39→20:11)
--- NOTE | 2019-08-10 07:10 | NUR ---
ENDORSED PATIENT TO DAY SHIFT NURSE. PATIENT IN STABLE CONDITION.
--- NOTE | 2019-08-10 07:11 | NUR ---
RECEIVED REPORT FROM MANAGER TITLE NURSE. PATIENT LYING DOWN IN BED SLEEPING, AROUSABLE BY VOICE. NO DISTRESS NOTED. DENIES ANY PAIN AT THIS TIME. AAOX4, CALM, COOPERATIVE, SKIN COLOR APPROPRIATE TO ETHNICITY, WARM TO TOUCH. SKIN INTACT. RESPIRATIONS EVEN, UNLABORED, ON ROOM AIR 2L/MIN VIA NC. HAS RIGHT UPPER ARM PICC LINE IN PLACE, INTACT, PATENT, AND INFUSING IVF PER MD ORDERS. REVIEWED PLAN OF CARE WITH PATIENT. PATIENT VERBALIZED UNDERSTANDING. SAFETY MEASURES IN PLACE, CALL LIGHT WITHIN REACH. WILL CONTINUE TO MONITOR.
[2019-08-10 08:07] LABS: BASOPHILS # (AUTO) 0.1 K/uL (0.00-0.22); BASOPHILS % (AUTO) 0.4 % (0.0-2.0); HEMATOCRIT 25.3 % (36-52); HEMOGLOBIN 8.3 g/dL (12.0-18.0); LYMPHOCYTES # (AUTO) 2.4 K/uL (2.0-11.5); MEAN CORPUSCULAR HEMOGLOBIN 30 pg (27-31); MEAN CORPUSCULAR HGB CONC 33 g/dL (33-37); MEAN CORPUSCULAR VOLUME 92.6 fL (80-94); MONOCYTES # (AUTO) 0.3 K/uL (0.8-1.0); MONOCYTES % (AUTO) 2.2 % (1.7-9.3); NEUTROPHILS # (AUTO) 8.8 K/uL (1.8-7.7); NEUTROPHILS % (AUTO) 76.4 % (42.2-75.2); PLATELET COUNT (AUTO) 180 K/uL (140-450); RED BLOOD CELL COUNT(AUTO) 2.73 MIL/uL (4.20-6.10); RED CELL DISTRIBUTION WIDTH 15.4 % (11.6-13.7); WHITE BLOOD COUNT (AUTO) 11.6 K/uL (4.8-10.8)
[2019-08-10 08:22] LABS: MAGNESIUM 1.6 mg/dL (1.8-2.4); PHOSPHORUS 3.2 mg/dL (2.5-4.9)
[2019-08-10 09:29] LABS: ANION GAP 10.8 (8-16); CARBON DIOXIDE 27.7 mmol/L (21-32); CREATININE 0.8 mg/dL (0.7-1.3); POTASSIUM 3.5 mmol/L (3.5-5.1)
[2019-08-10] MEDS: busPIRone 5 MG TAB PO SCH ×2 (09:50→20:07)
--- NOTE | 2019-08-10 09:51 | NUR ---
PATIENT SITTING DOWN IN BED TALKING TO FAMILY MEMBERS AT BEDSIDE. SCHEDULED MEDICATIONS DUE GIVEN. CONDITION UNCHANGED. WILL CONTINUE TO MONITOR.
--- NOTE | 2019-08-10 12:29 | NUR ---
PATIENT SITTING IN BED TALKING WITH FAMILY MEMBERS AT BEDSIDE. NO DISTRESS NOTED. DENIES ANY PAIN. SCHEDULED MEDICATIONS DUE GIVEN. WILL CONTINUE TO MONITOR.
[2019-08-10] MEDS ORDERED: MAG SULF 2000 MG/WATER PREMIX 50 ML IV SCH (13:30)
--- NOTE | 2019-08-10 13:44 | NUR ---
PATIENT SITTING IN BED WATCHING HIS TABLET. NO DISTRESS NOTED. DENIES PAIN. SCHEDULED MEDICATIONS DUE GIVEN. WILL CONTINUE TO MONITOR.
[2019-08-10] MEDS ORDERED: MAG SULF 2000 MG/WATER PREMIX 100 ML IV ONE (16:25)
--- NOTE | 2019-08-10 16:31 | NUR ---
SCHEDULED MEDICATIONS DUE GIVEN. FAMILY MEMBERS AT BEDSIDE. WILL CONTINUE TO MONITOR.
--- NOTE | 2019-08-10 18:45 | NUR ---
08/10/2019 RD FOLLOW UP COMPLETED PLEASE REFER TO NUTRITION PROGRESS NOTE UNDER CARE ACTIVITY FOR ESTIMATED NUTRITION NEEDS. RD RECOMMENDATIONS: 1. RECOMMEND CONTINUE CARDIAC DIET 2. RECOMMEND CONTINUE NUTRITION SUPPORT OF ENSURE TID 3. RD TO FOLLOW-UP 2-3 DAYS, HIGH RISK DENEEN PAVON MBA, RD
--- NOTE | 2019-08-10 18:55 | NUR ---
PATIENT LYING DOWN IN BED TALKING WITH FAMILY MEMBERS AT BEDSIDE. CONDITION UNCHANGED. WILL CONTINUE TO MONITOR.
--- NOTE | 2019-08-10 19:18 | NUR ---
GAVE REPORT TO BURNISHER NURSE FOR CONTINUITY OF CARE. PATIENT IN STABLE CONDITION.
--- NOTE | 2019-08-10 19:25 | NUR ---
RECEIVED BEDSIDE REPORT FROM DAY SHIFT NURSE. PATIENT IS AWAKE, ALERT, AND COOPERATIVE. RESPIRATION EVEN UNLABORED ON 2L O2 NC. NO DISTRESS NOTED. SKIN IS WARM AND DRY. RIGHT UPPER ARM PICC LINE PATENT AND INTACT. FAMILY AT BEDSIDE. PLAN OF CARE WAS DISCUSSED. ALL SAFETY MEASURES IN PLACE. BED IS AT LOW POSITION. CALL LIGHT WITHIN REACH AND VERBALIZES ITS USE. WILL CONTINUE TO MONITOR.
--- NOTE | 2019-08-10 19:39 | NUR ---
RECEIVED PT ROOM AIR WITH SP02 OF 95% AND A COARSE BREATH SOUNDS. NO RESPIRATORY DISTRESS NOTED AT THIS TIME; HR 89, RR 18. HHN TX GIVEN ORDERED WITH NO ADVERSE REACTION. FAMILY AT THE BEDSIDE. WILL CONTINUE TO MONITOR PT
--- NOTE | 2019-08-10 20:00 | NUR ---
INITIAL ASSESSMENT DONE. VITALS WERE TAKEN. PATIENT IN STABLE CONDITION. NO DISTRESS NOTED. WILL CONTINUE TO MONITOR.
--- NOTE | 2019-08-10 20:15 | NUR ---
ALL SCHEDULED MEDS WERE GIVEN PER ORDER. NO ASE NOTED. WILL CONTINUE TO MONITOR.
[2019-08-10] MEDS ORDERED: MELATONIN 3 MG TAB PO SCH (21:00)
--- NOTE | 2019-08-10 21:15 | NUR ---
RACHEL FROM [facility] CALLED TO INFORMED THAT THERE IS A BED FOR THE PATIENT. PATIENT IS GOING TO TELE STATION 2 ROOM 337A. ACCEPTING DOCTOR JOHN Russ
--- NOTE | 2019-08-10 21:30 | NUR ---
GAVE REPORT TO JOSE NAVARRO FROM [facility]. AWAITING FOR [facility] TO HAMMER FITTER THE PATIENT
--- NOTE | 2019-08-10 21:30 | NUR ---
PATIENT REFUSED MELATONIN MEDICATION
--- NOTE | 2019-08-10 22:21 | NUR ---
AWAITING FOR [facility] TRANSPORT
--- NOTE | 2019-08-10 22:40 | NUR ---
PATIENT SIGNED ALL PAPERWORK.
--- NOTE | 2019-08-10 22:50 | NUR ---
PATIENT LEFT THE FACILITY IN STABLE CONDITION WITH 2 PERSONNEL FROM [facility]. HEADING TO [facility] TELE STATION 2 ROOM 337A
== END 2019-08-10 22:50 | disposition short-term general hospital (02) | DRG 177 ==
LOC: MED 14:16 → MTU 16:46
PROVIDERS: ADMIT General Practice; ATTEND General Practice
PROC: 02HV33Z Insertion of Infusion Device into Superior Vena Cava, Percutaneous Approach (ICD-10-PCS; principal; 2019-08-07)
PROC: B548ZZA Ultrasonography of Superior Vena Cava, Guidance (ICD-10-PCS; 2019-08-07)
DX: J85.2 Abscess of lung without pneumonia (principal); J96.01 Acute respiratory failure with hypoxia; E43 Unspecified severe protein-calorie malnutrition; L02.213 Cutaneous abscess of chest wall; D61.818 Other pancytopenia; J84.9 Interstitial pulmonary disease, unspecified; I11.0 Hypertensive heart disease with heart failure; E11.65 Type 2 diabetes mellitus with hyperglycemia; I50.9 Heart failure, unspecified; I25.10 Atherosclerotic heart disease of native coronary artery without angina pectoris; E66.9 Obesity, unspecified; M54.9 Dorsalgia, unspecified; G89.4 Chronic pain syndrome; F41.9 Anxiety disorder, unspecified; E02 Subclinical iodine-deficiency hypothyroidism; F15.10 Other stimulant abuse, uncomplicated; F10.10 Alcohol abuse, uncomplicated; K72.90 Hepatic failure, unspecified without coma; T46.2X5A Adverse effect of other antidysrhythmic drugs, initial encounter; Y92.89 Other specified places as the place of occurrence of the external cause; Y90.0 Blood alcohol level of less than 20 mg/100 ml; Z68.30 Body mass index [BMI] 30.0-30.9, adult; Z87.891 Personal history of nicotine dependence; Z98.1 Arthrodesis status
CPT/HCPCS: 36415; 71045; 71270; 80048; 80053; 80305; 81001; 82140; 82150; 82310; 82550; 82948; 83605; 83615; 83690; 83735; 83880; 84100; 84134; 84443; 84484; 85025; 85610; 85730; 87081; 93005; 94640; 96360; 97110; 97112; 97116; 97161-GP; 97530; 99285; C1751; G0482; J1815; J2540; J3475; J7030; J7620; Q0092; Q9967